=== PATIENT | female | born 1930 | race Caucasian/White ===

== ENCOUNTER 2016-05-18 07:11 | Inpatient (IN) | payer MEDICARE ==
[~2016-05-18] VITALS: Ht 160 cm; Wt 49.8 kg
[2016-05-18] VITALS (11 sets, daily range): BP systolic 117–156; BP diastolic 73–102; PULSE 87–118; RESP 13–18; O2SAT 95–98
[~2016-05-18 07:11] MED LIST: CALC600T12 PO; COU25 PO; DIGO125T73 PO; LEVO137T18 PO; MULT-64 PO; OMEG-38 PO; TOPR25T PO
--- NOTE | 2016-05-18 07:35 | ED.REPORT ---
HPI-Stroke / CVA May 18, 2016 ED Provider: Asmita Rincon MD Patient is a 85 year old female w/ a hx of COPD, A-fib, colon and uterine cancer who presents to the ED via EMS after waking up with stroke symptoms around midnight. She is slurring words but able to verbally communicate and articulate what happened. It is unknown when exactly the stroke occurred. She has never had a stroke before. Initial evaluation at 0719. Nursing Notes Stated Complaint: STROKE SYMPTOMS Chief Complaint: Neuro Symptoms/ Deficits Nursing Notes Reviewed: Yes Allergies: Coded Allergies: ciprofloxacin (Verified Allergy, Intermediate, rash, 05/18/16) Scheduled Alendronate (Alendronate) 35 Mg Tablet 70 MG PO WEEKLY (Reported) Duloxetine HCl (Duloxetine HCl) 40 Mg Capsule.dr 30 MG PO DAILY (Reported) Ipratropium [place] (Ipratropium [place] 0.03% Nasal) 30 Ml [place] 1 SPRAY NS TID (Reported) Levothyroxine (Levothyroxine) 88 Mcg Tablet 88 MCG PO DAILY (Reported) Metoprolol Tartrate (Metoprolol Tartrate) 37.5 Mg Tablet 37.5 MG PO HS (Reported ) Warfarin Sodium (Warfarin Sodium) 3 Mg Tablet 3 MG PO DAILYWD (Reported) General Time Seen by Provider: 07:19 Chief Complaint Other (stroke symptoms ) Hx Obtained From: Patient, EMS Arrived By: Ambulance Time last known well unknown Sudden in Onset?: Yes Context of Onset: During sleep Symptom Duration: Since onset Progression Since Onset: Unchanged Severity: Current: No pain currently Risk Factors NIH Stroke Scale Level of Consciousness: Alert and responsive (0) Ask Month & Age: Both questions right (0) Open/Close Eyes/Hand Career And Guidance Counselor: Performs both tasks (0) Horizontal EO Movements: Partial gaze palsy (1) Visual [place]: No visual loss (0) Facial Palsy: Partial paral, lower (2) Right Arm Motor Drift (10s): No drift 10 sec (0) Left Arm Motor Drift (10s): Drift, not touch bed (1) Right Leg Motor Drift (5s): No drift 5 sec (0) Left Leg Motor Drift (5s): No drift 5 sec (0) Limb Ataxia FNF/Heel-Mccrary: Ataxia in 1 limb (1) Sensation (Arms/Legs/Face): No sensory loss (0) Language Aphasia: No aphasia, normal (0) Dysarthria: Slurring intelligible (1) Extinction/Inattention: Inatt visual/tactile (1) NIHSS Score: 7 Time NIHSS Performed: 07:19 Date NIHSS Performed: May 18, 2016 Past Medical History Past Medical History colon and uterine cancer Reports: COPD Reports: Atrial fibrillation Past Surgical History Reports: Cholecystectomy, Hysterectomy Smoking History Former Smoker Ambulatory Status Independent Review of Systems Complete sys rev & neg: except as marked. Physical Exam Physical Exam Notes: NIH scale- tongue deviates as well Initial Vital Signs Vital Signs (First) Date Time Temp Pulse Resp B/P Pulse Ox O2 Delivery O2 Flow Rate FiO2 05/18/16 07:15 99 156/102 97 Room Air 05/18/16 07:25 36.7 18 Initial VS: Reviewed ENT: Mucous membranes moist, Conjunctiva normal Abdomen / GI: Soft, Non-tender, No guarding, No rebound, No distention Back: No CVA tenderness Lymphatic: No lymphadenopathy Extremities: Vascular intact, No tenderness Skin: Warm, Dry, No cyanosis General/Constitutional: Awake, Alert, No acute distress Respiratory / Chest: Breath sounds = bilat, No respiratory distress Cardiovascular: No murmurs Heart Rate / Rhythm: Positive: Irreg irregular rhythm Neurologic: Oriented X3 left facial droop and left arm weakness. tongue deviates Right. minimal difference noted in LE. Mild difficulty with finger/nose with left hand altert, cooperative. Appropriatley upset with symptoms and frustrated with difficulty speaking - mild aphasia and mild dysarthria Interpretation & Diagnostics Interpretation & Diagnostics: HEAD/NECK CTA W/ BRAIN PERFUSION IMPRESSION: 1. No acute intracranial process. 2. Mild to moderate atrophy and chronic microvascular ischemic changes. 3. No areas of hemodynamically significant stenosis, vascular occlusion or aneurysmal dilation within the anterior circulation. 4. No areas of hemodynamically significant stenosis, vascular occlusion or aneurysmal dilation within the posterior circulation. 5. Less than 50% stenosis at the origin of the right vertebral artery. Otherwise, no areas of hemodynamically significant stenosis, vascular occlusion or aneurysmal dilation within the neck vasculature. The above findings were discussed with Asmita Rincon on 05/18/16 at 8:09 AM. Dictated by: Rowan Zaragoza M.D. on 05/18/2016 at 8:10 Approved by: Rowan Zaragoza M.D. on 05/18/2016 at 8:40 Lab Results Interpretation Result Diagram: 05/18/16 0740 05/18/16 0740 Test 05/18/16 07:40 05/18/16 10:43 White Blood Count 6.8th/mm3 (3.8-10.1) Red Blood Count 5.13mil/mm3 (3.90-5.20) Hemoglobin 15.6g/dL (12.0-15.6) Hematocrit 46.3% (35.0-46.0) Mean Corpuscular Volume 90.3fL (81-100) Mean Corpuscular Hemoglobin 30.4pg (27.0-35.0) Mean Corpuscular Hemoglobin Concent 33.7% (32.0-37.0) Red Cell Distribution Width 14.8% (12.3-15.4) Platelet Count 187bil/L (150-400) Neutrophils (%) (Auto) 67.8% (40-74) Lymphocytes (%) (Auto) 25.9% (14-46) Monocytes (%) (Auto) 5.0% (4-12) Eosinophils (%) (Auto) 0.4% (0-5) Basophils (%) (Auto) 0.6% (0-3) Prothrombin Time 22.0sec (8.1-12.5) Prothromb Time International Ratio 2.03ratio Activated Partial Thromboplast Time 32.1sec (22.8-33.0) Sodium Level 139mEq/L (134-144) Potassium Level 4.3mEq/L (3.5-5.2) Chloride Level 96mEq/L (97-108) Carbon Dioxide Level 25mmol/L (18-29) Blood Urea Nitrogen 16mg/dL (8-27) Creatinine 0.71mg/dL (0.57-1.00) Estimat Glomerular Filtration Rate 113mL/min (>59) Glucose Level 116mg/dL (60-99) Calcium Level 9.7mg/dL (8.5-10.1) Total Bilirubin 1.0mg/dL (0.0-1.2) Aspartate Amino Transf (AST/SGOT) 28U/L (0-50) Alanine Aminotransferase (ALT/SGPT) 22U/L (0-32) Alkaline Phosphatase 52U/L (25-165) Troponin T < 0.010ug/L (0.0-0.011) Total Protein 7.4g/dL (6.4-8.4) Albumin 4.6g/dL (3.4-5.0) Urine Color Straw (YELLOW) Urine Appearance Hazy (CLEAR,HAZY) Urine pH 7.5 (5.0-8.0) Urine Specific [place] 1.010 (1.003-1.035) Urine Protein Negativemg/dL (NEG,TRACE) Urine Glucose (UA) Negativemg/dL (NEGATIVE) Urine Ketones Tracemg/dL (NEGATIVE) Urine Occult Blood Trace (NEGATIVE) Urine Nitrite Negative (NEGATIVE) Urine Bilirubin Negative (NEGATIVE) Urine Urobilinogen Normalmg/dL (NORMAL) Urine Leukocyte Esterase Trace (NEGATIVE) Re-Eval/Medical Decision Med Decision/Clinical Course 85-year-old relatively healthy woman with chronic atrial fibrillation anticoagulated with an INR of 2. Last night around midnight with signs and symptoms consistent with a right-sided stroke with left-sided facial droop and left arm weakness. She contacted her son this morning and was brought to the emergency department. Because she awoke with symptoms and they were before midnight she is well out of the range for TPA Consultation : Consulted With: Hospitalist Transport Specialist: Will see patient, Agrees with plan, Accepts admit Counseled Regarding: Diagnosis, Lab results, Need for admission Patient Discharge & Departure Impression: Primary Impression: Stroke Additional Impressions: Atrial fibrillation Anticoagulant prescribed Disposition: ADMITTED TO HOSPITAL Discharge Condition All VS Reviewed: Yes Condition: Stable Referrals: PAULINA FLOYD MD (PCP) [place] Attestation Portion of this note were transcribed by Daniel Edwards. I, Dr. Rincon, personally performed the history, physical exam, and medical decision-making: I reviewed and confirmed the accuracy for the information in the transcribed note. Signed by: abrahan Vargas, 05/18/16 0800 copies to: PAULINA FLOYD MD, Shawna L MD May 18, 2016 07:35 DANIEL EDWARDS May 18, 2016 07:57
[2016-05-18 07:47] LABS: BASOPHILS % (AUTO) 0.6 % (0-3); EOSINOPHILS % (AUTO) 0.4 % (0-5); Mean Corpuscular Hemoglobin 30.4 pg (27.0-35.0); Mean Corpuscular Volume 90.3 fL (81-100); NEUTROPHILS % (AUTO) 67.8 % (40-74); Platelet Count 187 bil/L (150-400)
[2016-05-18 07:49] LABS: INR 2.03 ratio
[2016-05-18 08:10] LABS: TROPONIN T < 0.010 ug/L (0.0-0.011)
--- NOTE | 2016-05-18 08:41 | DRSVH ---
PROCEDURE: CT ANGIO BRAIN NECK TPA INDICATIONS: left sided weakness TECHNIQUE: Pre-contrast 4.5 mm thick sections acquired from the foramen magnum to the vertex. After the adminis tration of intravenous contrast, 1 mm thick sections acquired from the aortic arch through the [place]. Post-contrast 4.5 mm thick sections then re-acquired from the foramen magnum to the vert ex. 3-dimensional wizvosb-flseemwtl-wyxizbklab (MIP) and/or volume rendering reformats were acquired of the central intracranial vasculature and neck separately. For radiation dose reduction, the foll owing was used: automated exposure control, adjustment of mA and/or kV according to patient size. COMPARISON: None. FINDINGS: Image quality: Excellent. BRAIN: The ventricular system and cortical sulci demonstrate atrophy, consistent for the patient's stated ag e. There are areas of hypodensity within the periventricular and subcortical white matter. There is no acute intra-or extra axial fluid collection. No acute hemorrhage, mass lesion or midline shift. Br ainstem is unremarkable. Globes are symmetrical. Sinuses are aerated. Osseous structures are intact. HEAD CT ANGIOGRAPHY: The posterior circulation demonstrates a left vertebral artery dominance. Basilar artery and posterio r cerebral arteries demonstrate no areas of hemodynamically significant stenosis, vascular occlusion or aneurysmal dilation. Posterior communicating arteries are within normal limits. The anterior circulation, including the anterior and middle cerebral arteries, as well as internal ca rotid arteries demonstrates no areas of hemodynamically significant stenosis, vascular occlusion or a neurysmal dilation. NECK CT ANGIOGRAPHY: The origins of the left and right common, internal and external carotid arteries demonstrate no areas of hemodynamically significant stenosis, vascular occlusion or aneurysmal dilation. Origin of the le ft vertebral artery demonstrates no areas of hemodynamically significant stenosis, vascular occlusion or aneurysmal dilation. There is a small focus of calcification at the origin of the right vertebral artery causing less than 50% stenosis. Aortic arch demonstrates conventional anatomy. Limited, visua lized portions subclavian vasculature are unremarkable. There is a partially visualized minimal right pleural effusion. Calcified granulomas noted in the lef t upper lobe. IMPRESSION: 1. No acute intracranial process. 2. Mild to moderate atrophy and chronic microvascular ischemic changes. 3. No areas of hemodynamically significant stenosis, vascular occlusion or aneurysmal dilation within the anterior circulation. 4. No areas of hemodynamically significant stenosis, vascular occlusion or aneurysmal dilation within the posterior circulation. 5. Less than 50% stenosis at the origin of the right vertebral artery. Otherwise, no areas of hemodyn amically significant stenosis, vascular occlusion or aneurysmal dilation within the neck vasculature. The above findings were discussed with Asmita Rincon on 05/18/16 at 8:09 AM. Dictated by: Rowan Zaragoza M.D. on 05/18/2016 at 8:10 Approved by: Rowan Zaragoza M.D. on 05/18/2016 at 8:40
[2016-05-18] MEDS ORDERED: WARF3TAB7 PO (10:43)
[2016-05-18] MEDS ORDERED: LEVO88TA4 PO (10:44)
[2016-05-18] MEDS ORDERED: IPRA30SP8 NS (10:44)
[2016-05-18] MEDS ORDERED: ALEN35TA31 PO (10:46)
[2016-05-18] MEDS ORDERED: METO37.5 PO (10:47)
[2016-05-18] MEDS ORDERED: DULO40CA2 PO (10:48)
[2016-05-18 10:52] LABS: APPEARANCE,URINE HAZY (CLEAR,HAZY); COLOR,URINE STRAW (YELLOW); OCCULT BLOOD,URINE TRACE (NEGATIVE); PH,URINE 7.5 (5.0-8.0); UROBILINOGEN,URINE NORMAL (NORMAL)
[2016-05-18] MEDS ORDERED: Ondansetron 2 mg/mL 2 mL Inj IVPUSH PRN (11:20)
[2016-05-18] MEDS: 0.9% Sodium Chloride 1,000 ML IV SCH ×2 (12:17→20:29)
--- NOTE | 2016-05-18 12:30 | NUR ---
Arrived to [facility] : Patient arrived to [facility] from the ER at 1230. Patient is alert and oriented and having difficulty expressing herself verbally. Patient can barely move the fingers on her left hand and is unable to lift her left leg. Patient was oriented to her room care givers and call light. Patients Admit questions were answered in the ER .
[2016-05-18] MEDS ORDERED: Ondansetron 2 mg/mL 2 mL Inj IV PRN (13:10)
[2016-05-18] MEDS ORDERED: Alum-Mag Hydrox-Simeth 30 mL Suspension PO PRN (13:10)
[2016-05-18] MEDS ORDERED: Polyethylene Glycol (PEG) 17 Gm Powder PO PRN (13:10)
[2016-05-18] MEDS ORDERED: Labetalol 5 mg/mL 4 mL Inj IVPUSH PRN (13:30)
[2016-05-18] MEDS: Ipratropium 0.03% 30 mL Nasal Spray Bottle NASAL SCH ×2 (14:30→21:51)
--- NOTE | 2016-05-18 15:05 | NUR ---
Evaluation completed. Please go to "Notes" then click on "Assessments and Notes" (bottom left corner of screen). Then select appropriate discipline tab on top of screen.
[2016-05-18 15:49] LABS: Magnesium 2.1 mg/dL (1.6-2.6); TROPONIN T < 0.010 ug/L (0.0-0.011)
--- NOTE | 2016-05-18 16:49 | PCM.HPMED ---
Subjective Date of Service May 18, 2016 Primary Provider: Admitting Physician: Charli Kearns MD Primary Care Physician: Enio Downs MD Attending Physician: Charli Kearns MD Admit Status: From the Emergency Department, Full Admit Chief Complaint: Left-sided facial droop and weakness. . History of Present Illness: Geetha Emanuel is an 85-year-old female with a past medical history significant for paroxysmal atrial fibrillation, colon cancer status post colon resection 2 and chemotherapy and uterine cancer status post total abdominal hysterectomy who presented to the [facility] emergency Department via EMS after waking up with stroke symptoms around midnight. She reports that when she awoke she could not walk. She then called her son and was having difficulty with speaking and her words were slurred. She also noticed that she was drooling out of her mouth. She had accompanying lightheadedness and left-sided facial droop. It is unknown when exactly the stroke occurred. She reports that she wakes up very early but this was earlier than usual. She is unsure of why she awoke. She has never had a stroke before. Initial evaluation in the ED was at 0719. She denies headache, vision changes, facial numbness or tingling, chest pain, shortness of breath, palpitations, abdominal pain, nausea, vomiting , dysuria, bowel or bladder incontinence. She has no other complaints at this time. Vital signs in the ER: Temperature 36.7. Pulse 107. Respiratory rate 18. Blood pressure 156/102. Pulse ox 96% on room air. She was given 1 L NS. Her PCP is Dr. Downs in [place]. . Review of Systems: A comprehensive review of systems was conducted with the patient and found to be negative except as above in the History of Present Illness. . Allergies Coded Allergies: ciprofloxacin (Verified Allergy, Intermediate, rash, 05/18/16) Home Medications Alendronate 70 mg weekly. Metoprolol tartrate 37.5 mg daily at bedtime. Levothyroxine 88 g daily. Warfarin 3 mg daily. . PMH 1. Paroxysmal atrial fibrillation on warfarin. 2. Peripheral neuropathy. 3. Hypothyroidism. 4. Osteoporosis. 5. Colon cancer status post colon resection 2 and chemotherapy. 6. Uterine cancer status post total abdominal hysterectomy. . Surgical History 1. Cholecystectomy. 2. Total abdominal hysterectomy (1960s). 3. Colon resection 2 (1998 and 2003). Family History Her mother and father of old age. She had 2 brothers and 2 sisters. Her brother had CHF. She has one sister who is alive but is unaware of her medical history. . Social History Hx Alcohol Use: Yes (1/NITE) Hx Substance Use: No Hx Tobacco Use: Yes Smoking Status: Former Smoker (1/2 PPD 5-10 years) Additional Information The patient was for 40+ years and is now . She has 2 sons and 1 daughter. Her daughter had an NH in her 50s presumably due to drug use. 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 She was born in [facility] and has lived in [place] for 20 years she currently resides in [place]. She is independent at baseline. . Exam Vital Signs Vital Sign - Last Date Time Temp Pulse Resp B/P Pulse Ox O2 Delivery O2 Flow Rate FiO2 05/18/16 11:46 37.7 105 17 143/85 95 Room Air Exam General: Elderly female in no acute distress, thin, appropriately interactive HEENT: Normocephalic, atraumatic. Head is rotated right. External ears without defect. Pupils equal, round, and reactive to light. Lateral gaze to right. Anicteric sclerae, moist conjunctivae, and no lid lag. Oropharynx free of erythema and cobble stoning with moist mucosa. Tongue deviates to left. Neck: Supple with decreased range of motion slightly to left. No jugular venous distension. No bruits. No lymphadenopathy or thyromegaly. Cardiovascular: Irregularly irregular with no murmurs, rubs, or gallops appreciated Pulmonary: Clear to auscultation bilaterally with no crackles, wheezes, or rhonchi. Normal respiratory effort with no use of accessory muscles. Abdomen: Soft, nontender, nondistended, bowel sounds present. No hepatosplenomegaly or masses appreciated. Extremities: No clubbing, cyanosis, or edema. Skin: Normal temperature, turgor, and texture; no rash, ulcers, or subcutaneous nodules appreciated. Neurological: Left-sided facial droop, left tongue deviation, left upper extremity weakness, slurred speech, mild drooling. Psychiatric: Normal mood and affect. Alert and oriented to person, place, and time. . Lab and Diagnostics Labs Item Value Date Time Calcium Level 9.7 mg/dL 05/18/16 0740 Total Bilirubin 1.0 mg/dL 05/18/16 0740 Aspartate Amino Transf (AST/SGOT) 28 U/L 05/18/16 0740 Alanine Aminotransferase (ALT/SGPT) 22 U/L 05/18/16 0740 Alkaline Phosphatase 52 U/L 05/18/16 0740 Troponin T < 0.010 ug/L 05/18/16 0740 Total Protein 7.4 g/dL 05/18/16 0740 Albumin 4.6 g/dL 05/18/16 0740 Result Diagram: 05/18/16 0740 05/18/16 07 Microbiology Urine culture pending. . X-Rays, CTs and MRIs CT ANGIO BRAIN NECK TPA IMPRESSION: 1. No acute intracranial process. 2. Mild to moderate atrophy and chronic microvascular ischemic changes. 3. No areas of hemodynamically significant stenosis, vascular occlusion or aneurysmal dilation within the anterior circulation. 4. No areas of hemodynamically significant stenosis, vascular occlusion or aneurysmal dilation within the posterior circulation. 5. Less than 50% stenosis at the origin of the right vertebral artery. Otherwise , no areas of hemodynamically significant stenosis, vascular occlusion or aneurysmal dilation within the neck vasculature. The above findings were discussed with Asmita Rincon on 05/18/16 at 8:09 AM. Dictated by: Rowan Zaragoza M.D. on 05/18/2016 at 8:10 Approved by: Rowan Zaragoza M.D. on 05/18/2016 at 8:40 . 12-lead ECG EKG: Atrial fibrillation, heart rate 78, normal axis. . Assessment & Plan Geetha Emanuel is an 85-year-old female with a past medical history significant for paroxysmal atrial fibrillation, colon cancer status post colon resection 2 and chemotherapy and uterine cancer status post total abdominal hysterectomy who presented to the [facility] emergency Department via EMS after waking up with stroke symptoms eft-sided facial droop and upper extremity weakness that are persistent. 1. Acute CVA - Patient presented with symptoms of CVA including left-sided facial droop and upper extremity weakness that are persistent. - This is surgical sales representative of probable CVA versus RIND. - CTA of brain and neck showed no hemorrhage or acute intracranial abnormalities other than mild to moderate atrophy, as above. - NIH score of 7. Patient is not a TPA candidate as last known normal was last night prior to going to bed and she is anticoagulated on warfarin with INR of 2.03. - Neuro checks, fall risk per cautions, and elevate head of the bed 30 or more , per stroke protocol. - Ordered echocardiogram with bubble study, pending. - Ordered bilateral carotid Doppler Ultrasound, pending. - Ordered PT/OT/ST evaluations, pending. - Patient is nothing by mouth until swallow evaluation with speech therapy. - May use supplemental oxygen as needed. - Allow for permissive hypertension. - Continue to monitor closely on telemetry. - Ordered dietitian consultation. - Ordered nursing to provide stroke education. - Ordered fasting lipid panel for tomorrow with morning labs - Consulted neurology, Dr. Thomas, who recommends echocardiogram, lipid panel and initiation of statin therapy. Chronic problems: 2. Paroxysmal atrial fibrillation, on anticoagulation with warfarin, chronic. Stable. - Patient's INR is therapeutic at 2.03. - Patient is rate controlled on metoprolol 25 mg twice a day. Held metoprolol for now for permissive hypertension. May reconsider starting if the patient has RVR. - Continue warfarin with dosing per pharmacist. 3. Hypothyroidism, chronic. Presumed stable. - Ordered TSH, pending. - Continue home dose of levothyroxine 88 g daily. 4. Peripheral neuropathy, chronic. Stable. - No longer medically treated. PRN antiemetics: Zofran and Maalox. PRN bowel regimen: Senna and MiraLAX. PRN analgesics: Tylenol. PRN antihypertensive: Labetalol IV. Patient is admitted under inpatient status with expected length of stay greater than 2 midnights due to severity of presenting symptoms, risk of adverse event, and complexity of treatment plan. . VTE Prophylaxis: Sub-Q Heparin (Unfractionated) Resuscitation Status: CPR: Attempt Resuscitation Attending Statement The patient was seen and examined together with Dr. Cowan on 05/18/2016 and I agree with the history, exam and plan as outlined in the note above. Mindi Cowan DO May 18, 2016 13:37 Charli Kearns MD May 19, 2016 13:18
--- NOTE | 2016-05-18 20:12 | PCM.PHAPRO ---
Progress Left-sided facial droop and weakness. . WARFARIN DOSING PER PHARMACY Indication: afib Home dose: 3 mg PO daily INR Goal: 2-3 DI: N/A Additional Anticoag: N/A 2.03 P: Will give one dose of warfarin 3 mg PO tonight. Pharmacy will continue to monitor INR/CBC/signs and symptoms of bleeding Merna Garnica PharmD May 18, 2016 20:12
--- NOTE | 2016-05-18 20:17 | CONS ---
[address] [address] CONSULTATION REPORT PATIENT: CARLOS SHIPMAN : 1930 MR#: [id number] ADMIT: 05/18/2016 JOB ID: [id number] DATE OF SERVICE: 05/18/2016 NEUROLOGY CONSULTATION: REQUESTING PROVIDER: Mindi Cowan DO (RES) and Brenda Kearns MD CHIEF COMPLAINT: Sudden onset of left-sided weakness. HISTORY OF PRESENTING ILLNESS: The patient is a pleasant 85-year-old, right-handed woman with multiple medical problems including chronic obstructive pulmonary disease, atrial fibrillation therapeutic on warfarin with an INR of two, and a remote history of colon and uterine cancer, who reportedly woke up with the sudden onset of left upper and lower extremity weakness as well as a left facial droop and dysarthric speech. The last seen normal time was outside of the tPA window. Initial evaluation was at 7:19 a.m. She reports no history of stroke. FAMILY HISTORY: No family history of any neurologic disorders including stroke. PAST MEDICAL HISTORY: As above noted. Chronic obstructive pulmonary disease, atrial fibrillation well controlled on warfarin, a remote history of colon and uterine cancer. 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 She also has a 20 pack-year history of smoking. However, reports that she does not smoke now. She has a history of chronic obstructive pulmonary disease, paroxysmal supraventricular tachycardia and sleep apnea. PAST SURGICAL HISTORY: Status post cholecystectomy and hysterectomy. PRIMARY CARE PROVIDER: Dr. Downs SOCIAL HISTORY: She lives with her son. No tobacco, alcohol, or drugs. See above. REVIEW OF SYSTEMS: A complete review of systems was performed and was remarkable for the above noted. NIH STROKE SCALE: Initial NIH stroke scale was 7. Partial gaze palsy, facial palsy, left arm drift, limb ataxia, dysarthric speech, and extinction, for a total score of seven. Score appears the same today, with an NIH stroke scale of seven. ALLERGIES: CIPROFLOXACIN. HOME MEDICATIONS: Include warfarin 3 mg tablets daily, metoprolol, levothyroxine, ipratropium bromide, duloxetine, and alendronate. IMAGING STUDIES: She had a CTA of the head and neck demonstrating no acute intracranial process, mild to moderate atrophy, and chronic microvascular ischemic changes. No areas of hemodynamically significant stenosis, vascular occlusion, or aneurysmal dilation within the anterior circulation. No areas of hemodynamically significant stenosis, vascular occlusion, or aneurysmal dilation within the posterior circulation. Less than 50% stenosis at the origin of the right vertebral artery. Otherwise, no areas of hemodynamically significant stenosis, vascular occlusion, or aneurysmal dilation within the neck vasculature. LABORATORY STUDIES: WBC of 6.8, hemoglobin 15.6, hematocrit 46.3, and platelets of 187. Chemistry: Sodium 139, potassium 3 and was 4.3, chloride was 96, bicarb 25, BUN was 16, creatinine 0.71, and glucose of 116. LFTs were within normal limits. TSH was 3.510. Coags: PT was 22, INR 2.03, and PTT of 32.1. Urinalysis: Hazy in appearance, straw colored, trace ketones, trace occult blood, trace leukocyte esterase, a few urine bacteria. PHYSICAL EXAMINATION: Temperature 37.0, pulse of 118, respiratory rate of 15, blood pressure 117/76, pulse oximetry 95% on room air. General: She is a well-developed, well-nourished woman in no acute distress. Head: Normocephalic, atraumatic. Neck: Supple. No carotid bruits were auscultated. Negative Kernig. Negative Brudzinski. Chest: Clear to auscultation. Heart: The heart rate was at times irregularly irregular. No murmurs, rubs, or gallops were noted. Abdomen: Soft, nontender, nondistended. Bowel sounds positive. Extremities: No cyanosis, clubbing, or edema. NEUROLOGIC EXAMINATION: Mental status: She is awake, alert, and oriented x3. Speech is dysarthric, however there is no aphasia. There is a prominent left-sided facial neglect. Cranial nerves: Pupils equal, round, and reactive to light. Extraocular movements were smooth and conjugate, with no evidence of nystagmus. Face appeared symmetrical. Facial sensation was intact to light touch and temperature. There was an upper motor neuron type cranial nerve 7 palsy with flattening of the left nasolabial fold, so the face did appear asymmetrical. Auditory sensation was intact to finger rub. Palatal elevation was symmetrical. There was a mild degree of tongue deviation to the left. Sternocleidomastoids and trapezii were 5/5 bilaterally. There was prominent left-sided neglect. Motor: Left upper extremity 4, left lower extremity 4+. Coordination: [id number] was intact on the right. There was a mild degree of dysmetria on the left, proportionate to the degree of weakness. Sensation: Intact to light touch and temperature throughout. Reflexes: Deep tendon reflexes were 1+ in the upper extremities, 2+ at the patella, and 1+ at the Achilles bilaterally. Plantars were equivocal bilaterally. Gait: Deferred. Modified Langlade Score: 4 IMPRESSION: Cerebrovascular accident, acute in nature. Given that her INR was therapeutic, my suspicion is that this may be a vascular event secondary to other underlying potential stroke risk factors including hyperlipidemia. In light of that I do recommend that she be placed on the stroke protocol and a statin be started. I also recommend a fasting lipid profile for tomorrow morning. It is unclear if she does have baseline hypertension as readings in the hospital have varied widely. I would continue to optimize control of stroke risk factors including potential hypertension. I do recommend physical therapy and occupational therapy, as well as speech therapy. I recommend optimization of control of stroke risk factors. Continue stroke protocol. I do also recommend a repeat computed tomography study of her head with and without contrast tomorrow, as often as a stroke that was initially not visualized acutely may appear within the next 24-48 hours. She does have a pacemaker and therefore a magnetic resonance imaging study of her brain cannot be performed. My understanding is that she is on metoprolol for rate control of her atrial fibrillation; however, it is certainly possible that she has underlying hypertension which may also be controlled by this. Thank you, again, Dr. Cowan and Dr. Kearns, for allowing me to participate in the care of your patient. Please feel free to contact me with any questions or concerns. OPAL
[2016-05-19] VITALS (8 sets, daily range): BP systolic 125–159; BP diastolic 73–88; PULSE 70–104; RESP 16–18; O2SAT 96–98
[2016-05-19] MEDS ORDERED: Acetaminophen IV 1,000 MG in IV Premix 1 EACH IV ONE (02:00)
--- NOTE | 2016-05-19 05:02 | NUR ---
Neuro Checks Q4 neuro checks. patient shows left sided deficit with a left sided facial droop, severe strength and mobility decrease in left arm, mild strength and mobility decrease in left leg, and tingling and numbness throughout entire left side. pupils equal bilaterally. mumbled speech. patient states that her left arm "does what I want it to sometimes and sometimes it doesn't" when asked if she is able to extend it out in front of her. continuing Q4h checks.
[2016-05-19] MEDS ORDERED: DULoxetine 30 mg DR Capsule PO SCH (08:30)
[2016-05-19 08:48] LABS: BASOPHILS % (AUTO) 0.6 % (0-3); EOSINOPHILS % (AUTO) 1.1 % (0-5); MONOCYTES % (AUTO) 8.7 % (4-12); Mean Corpuscular Hemoglobin 30.4 pg (27.0-35.0); Mean Corpuscular Volume 88.7 fL (81-100); NEUTROPHILS % (AUTO) 68.5 % (40-74); Platelet Count 174 bil/L (150-400)
[2016-05-19 09:05] LABS: INR 2.24 ratio
--- NOTE | 2016-05-19 09:26 | PCM.PHAPRO ---
Progress Left-sided facial droop and weakness. . Date May 19-Apr INR 2.03 2.24 INR change 0.21 Warf Dose 3 MG 3 MG Benito Cadet May 19, 2016 09:26
[2016-05-19] MEDS: Ipratropium 0.03% 30 mL Nasal Spray Bottle NASAL SCH ×3 (09:48→20:11)
--- NOTE | 2016-05-19 11:14 | NUR ---
Evaluation completed. Please go to "Notes" then click on "Assessments and Notes" (bottom left corner of screen). Then select appropriate discipline tab on top of screen.
--- NOTE | 2016-05-19 12:59 | PCM.PNMED ---
Subjective Date of Service May 19, 2016 Subjective Patient is an 85-year-old female with a past medical history significant for paroxysmal atrial fibrillation, on warfarin, colon cancer status post colon resection 2 and chemotherapy and uterine cancer status post total abdominal hysterectomy who presented to the [facility] ED via EMS after waking up with stroke symptoms around midnight. She was admitted for CVA management and treatment. Hospital day #2. No acute overnight events. Patient states she has somewhat improved overnight. She still has left-sided facial droop but her left arm mobility and strength have much improved. Her speech is still a little mumbled. She denies headache, vision changes, new weakness, sensation loss. Exam Vital Signs Vital Sign - Last Date Time Temp Pulse Resp B/P Pulse Ox O2 Delivery O2 Flow Rate FiO2 05/19/16 10:01 36.6 99 16 145/83 96 Room Air Intake and Output 05/18/16 05/18/16 05/19/16 Cumulative From/Thru 15:00 23:00 07:00 05/18/16 07:25 - 05/19/16 06:54 Intake Total 634 ml 100 ml 734 ml Output Total 200 ml 200 ml Balance 634 ml -100 ml 534 ml Intake Oral 100 ml 100 ml IV Total 634 ml 634 ml Output Urine Total 200 ml 200 ml # Bowel Movements 0 0 Exam General: Elderly female in no acute distress, thin, appropriately interactive, sitting comfortably on the chair HEENT: Normocephalic, atraumatic. Head is rotated right. External ears without defect. Pupils equal, round, and reactive to light. Lateral gaze to right. Anicteric sclerae, moist conjunctivae, and no lid lag. Oropharynx free of erythema and cobble stoning with moist mucosa. Tongue deviates to left. Neck: Supple with decreased range of motion slightly to left. No jugular venous distension. No bruits. No lymphadenopathy or thyromegaly. Cardiovascular: Irregularly irregular with no murmurs, rubs, or gallops appreciated Pulmonary: Clear to auscultation bilaterally with no crackles, wheezes, or rhonchi. Normal respiratory effort with no use of accessory muscles. Abdomen: Soft, nontender, nondistended, bowel sounds present. No hepatosplenomegaly or masses appreciated. Extremities: No clubbing, cyanosis, or edema. Skin: Normal temperature, turgor, and texture; no rash, ulcers, or subcutaneous nodules appreciated. Neurological: Left-sided facial droop, left tongue deviation (improved), left upper extremity weakness (improved), slurred speech, mild drooling. Psychiatric: Normal mood and affect. Alert and oriented to person, place, and time. Lab and Diagnostics Result Diagram: 05/19/16 0836 05/19/16 0836 Microbiology Urine culture pending. . X-Rays, CTs and MRIs CT ANGIO BRAIN NECK TPA IMPRESSION: 1. No acute intracranial process. 2. Mild to moderate atrophy and chronic microvascular ischemic changes. 3. No areas of hemodynamically significant stenosis, vascular occlusion or aneurysmal dilation within the anterior circulation. 4. No areas of hemodynamically significant stenosis, vascular occlusion or aneurysmal dilation within the posterior circulation. 5. Less than 50% stenosis at the origin of the right vertebral artery. Otherwise , no areas of hemodynamically significant stenosis, vascular occlusion or aneurysmal dilation within the neck vasculature. The above findings were discussed with Asmita Rincon on 05/18/16 at 8:09 AM. Dictated by: Rowan Zaragoza M.D. on 05/18/2016 at 8:10 Approved by: Rowan Zaragoza M.D. on 05/18/2016 at 8:40 . 12-lead ECG EKG: Atrial fibrillation, heart rate 78, normal axis. . Assessment & Plan Geetha Emanuel is an 85-year-old female with a past medical history significant for paroxysmal atrial fibrillation, colon cancer status post colon resection 2 and chemotherapy and uterine cancer status post total abdominal hysterectomy who presented to the [facility] emergency Department via EMS after waking up with stroke symptoms eft-sided facial droop and upper extremity weakness that are persistent. 1. Left-sided facial droop and upper extremity weakness, present on admission. Active. - Patient presented with symptoms of CVA including left-sided facial droop and upper extremity weakness that are persistent. - This is ambulatory services representative of probable CVA versus RIND. - CTA of brain and neck showed no hemorrhage or acute intracranial abnormalities other than mild to moderate atrophy, as above. - NIH score of 7. Patient is not a TPA candidate as last known normal was last night prior to going to bed and she is anticoagulated on warfarin with INR of 2.24. - Neuro checks, fall risk per cautions, and elevate head of the bed 30 or more , per stroke protocol. - Ordered echocardiogram with bubble study, pending. - Ordered bilateral carotid Doppler Ultrasound, (awaiting for report). - Ordered PT/OT/ST evaluations, pending. - Patient is nothing by mouth until swallow evaluation with speech therapy. - May use supplemental oxygen as needed. - Allow for permissive hypertension. - Continue to monitor closely on telemetry. - Ordered dietitian consultation. - Ordered nursing to provide stroke education. - Consulted neurology, Dr. Thomas, who recommends echocardiogram (awaiting), lipid panel (came back normal) and initiation of statin therapy, and repeat CT with and without contrast (awaiting). Chronic problems: 2. Paroxysmal atrial fibrillation, on anticoagulation with warfarin, chronic. Stable. - Patient's INR is therapeutic at 2.24. - Patient is rate controlled on metoprolol 25 mg twice a day. Held metoprolol for now for permissive hypertension. May reconsider starting if the patient has RVR. - Continue warfarin with dosing per pharmacist. 3. Hypothyroidism, chronic. Presumed stable. - Ordered TSH, pending. - Continue home dose of levothyroxine 88 g daily. 4. Peripheral neuropathy, chronic. Stable. - No longer medically treated. PRN antiemetics: Zofran and Maalox. PRN bowel regimen: Senna and MiraLAX. PRN analgesics: Tylenol. PRN antihypertensive: Labetalol IV. Patient is admitted under inpatient status with expected length of stay greater than 2 midnights due to severity of presenting symptoms, risk of adverse event, and complexity of treatment plan. . VTE Prophylaxis: Sub-Q Heparin (Unfractionated) Resuscitation Status: CPR: Attempt Resuscitation Attending Statement The patient was seen and examined together with Dr. Ray on 05/19/2016 and I agree with the history, exam and plan as outlined in the note above. Colette Ray DO May 19, 2016 12:59 Charli Kearns MD May 20, 2016 10:06
--- NOTE | 2016-05-19 13:40 | DRSVH ---
PROCEDURE: CT BRAIN WITH AND WITHOUT CONTRAST ([id number]) INDICATIONS: Stroke TECHNIQUE: 4.5 mm thick angled axial sections acquired from the foramen magnum to the vertex both before and aft er the administration of intravenous contrast, with coronal reformats. COMPARISON: [facility], CT, CT ANGIO BRAIN NECK TPA, 05/18/2016, 7:51. [facility], [place], CT, CT HEAD WO CONTRAST, 04/24/2016, 4:46 AM. FINDINGS: Image quality: Excellent. CSF spaces: Basal cisterns are patent. No extra-axial fluid collections. Ventricles are symmetric in size and shape. Brain: No midline shift. No intracranial bleeds or masses. No abnormal intracranial enhancement. There is an overlie of mild cerebral volume loss for age. There is periventricular white matter environmental health nurse juhi small vessel ischemic change. There also is a newly identified subacute stroke present since the comparison CT of the brain 04/24/16. This also is appreciably better visualized than on the comparis on head CT 05/18/16 performed at 07:51 in the morning this is located at the upper margin of the insu lar cortex on the right, tracking into the anterior half of the powell radiata on the right near the frontal horn of the right lateral ventricle, measuring approximately 2 cm in maximal AP dimension. T here is intracranial internal carotid artery atherosclerosis. Skull and face: Calvarium and visualized facial bones appear intact, without suspicious lesions. Sinuses: Visualized sinuses and mastoids are clear. IMPRESSION: Definite new finding of subacute ischemic injury involving the superior right insular cor magali region tracking cephalad into the anterior half of the right powell radiata, measuring up to 2 cm in maximal AP dimension without associated mass effect or hemorrhage. This is clearly visualized by the current study and likely was present to a very faint degree at 7 in the morning yesterday, and w as not present during CT scanning 04/24/16. As noted, no mass effect or hemorrhage is associated. By its appearance and evolution underlying malignancy is not suspected. Dictated by: Gabriel Long M.D. on 05/19/2016 at 13:33 Approved by: Gabriel Long M.D. on 05/19/2016 at 13:40
--- NOTE | 2016-05-19 15:51 | NUR ---
Social Work-initial assessment: Data:See initial assessment. Pt is a 85 y/o female who was admitted on 05/18/16 for stroke per H&P. Pt's insurance is [facility] and PCP is Enio Downs MD. EMR Reviewed. Pt's readmission score is 2. SW met with pt at bedside to discuss discharge planning, SW role explained. Pt is alert and oriented x3. Pt resides at home with her son Александр where she remains independent with ADLs. Pt drives and uses a cane at baseline. Pt has no HH or SNF history. 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 SW discussed DPOA/advanced directive, pt states she has completed this, SW encouraged a copy to be brought into the hospital. PT and ST both saw pt today and are recommend Inpt rehab vs SNF. SW discussed with differences to both. SW also explained pt would have to have 24/7 care at home to be able to go to inpt rehab. Pt states her son will be able to do this, SW to confirm with son. SNF choice list proivded. Pt would like a referral to [facility] and also [facility]. SW faxed PASRR and facesheet to [facility] and provided access in [place]. SW attempted to reach son Александр, left message on his phone. SW to wait until 24/7 care is confirmed prior to making inpt rehab referral. Paperwork and PASRR in the chart. SW will continue to follow. Assessment:Inpt rehab vs SNF. Plan:[facility] has been faxed. SW to wait to hear back from son to confirm 24/7 care post inpt rehab prior to making referral to [facility] inpt rehab. authorization will need to be obtained. Paperwork and PASRR in the chart. SW will continue to follow. AVRIL Banuelos Addendum: 05/19/16 at 1557 by DEYANIRA MEJIAS SS Amended: Links added.
--- NOTE | 2016-05-19 15:57 | NUR ---
SNF choice list provided. AVRIL Banuelos
[2016-05-19] MEDS: 0.9% Sodium Chloride 1,000 ML IV SCH ×2 (16:21→17:18)
--- NOTE | 2016-05-19 17:19 | CONS ---
[address] [address] CONSULTATION REPORT PATIENT: CARLOS SHIPMAN : 1930 MR#: [id number] ADMIT: 05/18/2016 JOB ID: [id number] DATE OF SERVICE: 05/19/2016 NEUROLOGY PROGRESS NOTE: SUBJECTIVE: The patient reports improvement in her right upper extremity weakness overnight. I reviewed her repeat CT of the head with and without contrast which demonstrated a definite new finding of a subacute ischemic injury involving the superior right insular cortex region, tracking cephalad into the anterior half of the right powell radiata, measuring up to 2 mm on maximal AP dimension, but without associated mass effect or hemorrhage. This is clearly visualized by the current study. No hemorrhage was noted. PHYSICAL EXAMINATION: Today vital signs: Temperature 36.6, pulse of 104, respiratory rate of 16, blood pressure 124/73, pulse oximetry 97% on room air. General: She is a well-developed, well-nourished woman in no acute distress. Head: Normocephalic, atraumatic. Neck: Supple. No carotid bruits were auscultated. Negative Kernig. Negative Brudzinski. Chest: Clear to auscultation. Heart: At times irregularly irregular. No murmurs, rubs, or gallops were noted. Abdomen: Soft, nondistended, nontender. Bowel sounds positive. Extremities: No cyanosis, clubbing, or edema. NEUROLOGIC EXAMINATION: Mental status: She is awake, alert, and oriented x3. Speech is dysarthric, however there is no aphasia. Left-sided neglect appears much improved today, however still present. Cranial nerves: Pupils equal, round, and reactive to light. Extraocular movements were smooth and conjugate, with no evidence of nystagmus. Face appeared symmetrical. Facial sensation asymmetrical. There was an upper motor neuron type cranial nerve 7 palsy with flattening of the left nasolabial fold. Facial sensation was diminished to light touch and temperature on the left side. Auditory sensation was intact to finger rub. Palatal elevation was symmetrical. There is a mild degree of tongue deviation to the left. Sternocleidomastoids and trapezii were 5/5 bilaterally. As noted above, left-sided neglect was still present; however, appeared not much output improved. Motor: Left upper extremity 4+, left lower extremity 5-. Coordination: [id number]-fl-remb was intact on the right. There was a mild degree of dysmetria on the left, proportionate to the degree of weakness. Sensation: Diminished today to light touch and temperature over the left upper and left lower extremities. Reflexes: Deep tendon reflexes were 1+ in the upper extremities, 2+ at the patella, 1+ at the Achilles bilaterally. Plantars were equivocal bilaterally. Gait: Deferred. IMPRESSION: Cerebrovascular accident left insula/powell radiata. RECOMMENDATIONS: Continue stroke protocol. Recommend obtaining a 2D echocardiogram. Continue to optimize control of stroke risk factors. Cholesterol levels today: Total cholesterol 172, LDL 87.8, VLDL 16.2, HDL was 68. TSH 3.510. Her blood pressure has been intermittently elevated. She does not smoke. I do recommend obtaining the 2D echocardiogram to exclude a cardiac etiology. However, given the location of the stroke, my suspicion is that her intermittent elevated blood pressures may have contributed to the stroke if no cardioembolic etiology is identified. OPAL
--- NOTE | 2016-05-19 17:44 | NUR ---
Intake/activity Pt able to sit up in chair and consume meals following set up with minimal assist. Pt is trying to use L hand as much as possible, using R hand to brace when needed, Pt was up with PT, able to ambulate for very short distance in hallway with 1 per assist, gait belt, and FWW. Pt has been getting up to BCS with 1 per assist, able to make needs known. Call light within reach, will continue to monitor.
[2016-05-20] VITALS (10 sets, daily range): BP systolic 152–167; BP diastolic 70–94; PULSE 82–106; RESP 16–18; O2SAT 91–98
[2016-05-20] MEDS: 0.9% Sodium Chloride 1,000 ML IV SCH (03:05)
[2016-05-20 06:37] LABS: BASOPHILS % (AUTO) 0.8 % (0-3); EOSINOPHILS % (AUTO) 2.3 % (0-5); MONOCYTES % (AUTO) 9.7 % (4-12); Mean Corpuscular Hemoglobin 30.5 pg (27.0-35.0); Mean Corpuscular Volume 92.1 fL (81-100); NEUTROPHILS % (AUTO) 64.9 % (40-74); Platelet Count 143 bil/L (150-400)
[2016-05-20 06:54] LABS: INR 2.36 ratio
--- NOTE | 2016-05-20 07:12 | PCM.PHAPRO ---
Progress Left-sided facial droop and weakness. . May 19-May 20-Apr 2.03 2.24 2.36 0.21 0.12 3 MG 3 MG 3 MG Benito Cadet May 20, 2016 07:12
[2016-05-20] MEDS: Ipratropium 0.03% 30 mL Nasal Spray Bottle NASAL SCH ×3 (09:54→21:50)
--- NOTE | 2016-05-20 10:58 | PCM.PNMED ---
Subjective Date of Service May 20, 2016 Subjective Pt doing well this morning. She states she has noticed some improvement with respect to her facial droop and she feels her speech is slightly less slurred. Pt continues to deny any weakness in her upper and lower extremities. She denies dizziness, headache, and visual problems. No complaints or concerns at this time. Exam Vital Signs Vital Sign - Last Date Time Temp Pulse Resp B/P Pulse Ox O2 Delivery O2 Flow Rate FiO2 05/20/16 09:59 36.6 94 18 152/70 91 Room Air Intake and Output 05/19/16 05/19/16 05/20/16 Cumulative From/Thru 15:00 23:00 07:00 05/18/16 07:25 - 05/20/16 06:54 Intake Total 1443 ml 836 ml 1240 ml 4253 ml Output Total 1250 ml 600 ml 2050 ml Balance 1443 ml -414 ml 640 ml 2203 ml Intake Oral 836 ml 100 ml 1036 ml IV Total 1443 ml 1140 ml 3217 ml Output Urine Total 1250 ml 600 ml 2050 ml # Bowel Movements 0 0 0 Exam GENERAL: NAD, Pt laying in bed comfortably HEENT: AT/NC; PERRLA, EOMI, MM moist CARDIAC: RRR, No M/R/G PULM: CTAB ABD: Soft, NT, ND, Positive BS; No hepatosplenomegaly appreciated EXT: No C/C/E; No calve tenderness bilaterally NEURO: Alert and oriented x3; Following all commands; 3/5 strength in bilateral upper and lower extremities, Slurred speech present; Pt continues to have some left sided facial droop PSYCH: Normal mood and affect IVs and Medications Medications Reviewed: Medications were reviewed in detail Lab and Diagnostics Result Diagram: 05/20/1661505/20/16615 Microbiology Urine culture pending. . X-Rays, CTs and MRIs CT BRAIN WITH AND WITHOUT CONTRAST INDICATIONS: Stroke TECHNIQUE: 4.5 mm thick angled axial sections acquired from the foramen magnum to the vertex both before and after the administration of intravenous contrast, with coronal reformats. COMPARISON: [facility], CT, CT ANGIO BRAIN NECK TPA, 05/18/2016, 7: 51. [facility], CT, CT HEAD WO CONTRAST, 04/24/2016, 4:46 AM. FINDINGS: Image quality: Excellent. CSF spaces: Basal cisterns are patent. No extra-axial fluid collections. Ventricles are symmetric in size and shape. Brain: No midline shift. No intracranial bleeds or masses. No abnormal intracranial enhancement. There is an overlie of mild cerebral volume loss for age. There is periventricular white matter chronic small vessel ischemic change. There also is a newly identified subacute stroke present since the comparison CT of the brain 04/24/16. This also is appreciably better visualized than on the comparison head CT 05/18/16 performed at 07:51 in the morning this is located at the upper margin of the insular cortex on the right, tracking into the anterior half of the powell radiata on the right near the frontal horn of the right lateral ventricle, measuring approximately 2 cm in maximal AP dimension. There is intracranial internal carotid artery atherosclerosis. Skull and face: Calvarium and visualized facial bones appear intact, without suspicious lesions. Sinuses: Visualized sinuses and mastoids are clear. IMPRESSION: Definite new finding of subacute ischemic injury involving the superior right insular cortex region tracking cephalad into the anterior half of the right powell radiata, measuring up to 2 cm in maximal AP dimension without associated mass effect or hemorrhage. This is clearly visualized by the current study and likely was present to a very faint degree at 7 in the morning yesterday, and was not present during CT scanning 04/24/16. As noted, no mass effect or hemorrhage is associated. . 12-lead ECG EKG: Atrial fibrillation, heart rate 78, normal axis. . Assessment & Plan Geetha Emanuel is an 85-year-old female with a past medical history significant for paroxysmal atrial fibrillation, colon cancer status post colon resection 2 and chemotherapy and uterine cancer status post total abdominal hysterectomy who presented to the [facility] emergency Department via EMS after waking up with stroke symptoms eft-sided facial droop and upper extremity weakness that are persistent. 1. Acute CVA - Patient presented with symptoms of CVA including left-sided facial droop - Repeat CT of the brain confirms presence of an acute stroke - Continue Warfarin per Neurology, INR remains therapeutic - BP is elevated today, and pt needs tight BP control therefore I will restart her home dose of Metoprolol and monitor her BP closely throughout the day - Continue Atorvastatin for now - ECHO with bubble study is currently pending - CT angiogram of the head and neck does not reveal any hemodynamically significant stenosis - PT recommends pt to have inpatient rehabilitation and this is currently awaiting authorization from her insurance 2. Atrial Fibrillation, Paroxysmal - Pt is presently in NSR - Patient's INR remains therapeutic today - Restart Metoprolol now - Pharmacy to continue managing Warfarin dosing and recheck INR in AM 3. Essential Hypertension, Uncontrolled - Restart home Metoprolol - Monitor BP closely - If BP remains elevated despite current dose of Metoprolol, increase dose or add low dose Amlodipine daily 4. Hypothyroidism - Continue home dose of Levothyroxine 88 g daily. 5. Disposition - Anticipate discharge to inpatient rehabilitation tomorrow, pending insurance authorization vs SNF placement on 05/21/2016 VTE Prophylaxis: Sub-Q Heparin (Unfractionated) Resuscitation Status: CPR: Attempt Resuscitation Charli Kearns MD May 20, 2016 10:58
--- NOTE | 2016-05-20 11:19 | DRSVH ---
PROCEDURE: US BILATERAL DUPLEX DOPPLER IMAGING OF THE CAROTIDS ([id number]) INDICATIONS: Evaluate stroke follow up TECHNIQUE: Color and pulse Doppler interrogation was performed of both carotid systems, with image documentation and velocity measurements. COMPARISON: None. FINDINGS: All stenosis calculations are based on NASCET criteria. Right side: Brachial blood pressure: IV in place, now blood pressure obtained. Common Carotid Artery(Distal) PSV: 73.50 cm/s Internal Carotid Artery PSV- Proximal: 68.80 cm/s Mid-lon.50 cm/s Distal: 58.50 cm/s EDV - Proximal: 8.10 cm/s Mid-lon.20 cm/s Distal: 11.50 cm/s External Carotid Artery(Proximal) PSV: 100.60 cm/s ICA/CCA PSV ratio: 1.0 Salazar scale imaging description: Scattered small amounts of atherosclerotic plaque are seen. Percent internal carotid artery stenosis: Less than 50% diameter. Vertebral artery: Flow direction is antegrade. Left side: Brachial blood pressure: 143/85 mm Hg. Common Carotid Artery(Distal) PSV: 71.70 cm/s Internal Carotid Artery PSV - Proximal: 74 cm/s Mid-lon.40 cm/s Distal: 86.20 cm/s EDV - Proximal: 12.70 cm/s Mid-lon.60 cm/s Distal: 15.60 cm/s External Carotid Artery(Proximal) PSV: 101.80 cm/s ICA/CCA PSV ratio: 1.2 Salazar scale imaging description: Minimal atherosclerotic plaquing is present. Percent internal carotid artery stenosis: Less than 50% diameter stenosis. Vertebral artery: Flow direction is antegrade. IMPRESSION: There is less than 50% diameter stenosis at the origin of both internal carotid arteries. Dictated by: Patrick Grey M.D. on 05/20/2016 at 11:15 Approved by: Patrick Grey M.D. on 05/20/2016 at 11:17
--- NOTE | 2016-05-20 15:35 | NUR ---
Social Work-continued d/c planning: Data:EMR reviewed. Pt is on day 2 of hospitalization for stroke per H&P. Pt is not medically stable. PT and ST both saw pt today and are recommend Inpt rehab vs SNF. SW also explained pt would have to have 24/7 care at home to be able to go to inpt rehab. SW left another message for son Александр to confirm discharge plan for Inpt rehab, no return call. [facility] can accept pt when medically stable. Pt will need authorization. Paperwork in the chart. SW will continue to follow. Assessment:pt who would benefit from inpt vs. SNF. Plan:[facility] has accepted pt with Dr. Hampton to follow. authorization will need to be updated. SW has left message for son again to discuss discharge plan for inpt rehab,as this is the recommendation. IF son is able to provide 24/7 care at home post rehab then referral can be made to [facility] inpt rehab. Paperwork in the chart. SW will continue to follow. AVRIL Banuelos
--- NOTE | 2016-05-20 15:35 | NUR ---
[facility] can accept with Dr. Hampton to follow. authorization will need to be obtained. AVRIL Banuelos
--- NOTE | 2016-05-20 17:59 | NUR ---
Neuro/activity Assumed care of pt at 1500. Pt up with PT, noted obvious L sided facial droop at rest and with smile, tongue at midline. RUE maintenance assistant > LUE maintenance assistant. Pt able to raise RUE without issue, LUE raises slightly. While amb with PT with FWW, pt turning to left. She did agree to sit up in chair for dinner, tolerated dysphagia mechanical, NTL diet without issue. Denies any pain/discomfort. Call light in reach.
--- NOTE | 2016-05-20 19:16 | DRSVH ---
[facility] [address] [place] [address] Echocardiogram Report Name: CARLOS SHIPMAN JStfaraz Juan e: 05/20/2016 Height: 63 in Hospital Exam Location: [facility] Weight: 112 lb Gender: Female BSA: 1.5 m2 : 1930 Age: 85 yrs BP: 167/94 mmHg Reason For Study: STROKE Ordering Physician: HOSPITALIST [facility] Performed By: Sancho Herrera Referring Physician: Aileen SUNSHINE Interpretation Summary Pace rhythm with pacer wire in the rright ventricle. 1. Normal LV size and function. The estimated ejection fraction is 60%. 2. Severe biatrial enlargement with intact interatrial septum. Elevated E/e ration suggestive of elevated filling pressure. 3. Severe mitral stenosis based upon mean gradient. MVA area by planimetry is 1.5cm2. Mild mitral regurgitation. 4. Severe tricuspid regurgitation. Systolic flow reversal in the hepatic vein. 5. Right sided pleural effusion. Procedure: A two-dimensional transthoracic echocardiogram with color flow and Doppler was performed. The study quality was technically adequate. Comparison is made with the echocardiogram of 08/31/11. The patient was in atrial fibrillation with rapid ventricular response during the exam with a heart rate exceeding 100 bpm. The patient had a heart rate of 78-117 beats per minute. Left Ventricle: Left ventricular wall thickness is mildly increased. The left ventricular cavity is small. Trabeculae near apex are visualized. No thrombus is observed. The ejection fraction is estimated to be 70-75%. There are no focal wall motion abnormalities. The E/E' ratio is severely increased, suggesting possible increased filling pressures. Right Ventricle: The right ventricle is normal in size and function. Atria: The left atrium is severely dilated. The right atrium is severely dilated. The interatrial septum is intact with no evidence for an atrial septal defect. Mitral Valve: There is moderate to severe mitral annular calcification. The mitral valve leaflets are moderately calcified. The mean pressure gradient of the mitral valve is 9.6 mmHg. The mitral valve area by pressure half-time is 1.5 cm2 by planimetry. There is mild mitral regurgitation. Aortic Valve: The aortic valve is moderately calcified. The peak aortic velocity is 1.5 m/sec. The peak aortic velocity on the previous exam was 1.3 m/sec. There is trace aortic regurgitation. Tricuspid Valve: The tricuspid valve leaflets are thin and pliable. There is severe tricuspid regurgitation. The right ventricular systolic pressure is estimated at 40 mmHg assuming a right atrial pressure of 8 mm Hg. Pulmonic Valve: The pulmonic valve is normal in structure and function. There is trace pulmonic regurgitation. Great Vessels: The aortic root is normal size. The dimensions of the ascending aorta are normal. The pulmonary artery is normal size. The IVC is of normal diameter and collapses less than 50% with a sniff. This suggests a right atrial pressure of 8 mm Hg. Systolic flow reversal in the hepatic vein. Pericardium/ Pleura There is no pericardial effusion. There is a moderate right-sided pleural effusion. MMode/2D Measurements & Calculations LVIDd: 3.6 cm LA dimension: 3.4 cm RA long axis LVOT diam LVIDs: 1.7 cm FS: 53.0 % LA A2 area: 22.1 cm RA area Ao root diam EPSS: 0.67 cm LA A4 area: 26.4 cm IVSd: 0.77 cm LA length (vol): 5.9 cm : 20.0 cm Aortic Jxn LVPWd: 0.99 cm LA vol: 83.4 ml RA vol: 65.5 ml LA vol index RA asc Aorta : 43.4 mm2 Diam: 2.8 cm IVC diam: 2.1 cm LV gomez. diameter/BSA LV sys. diameter/BSA (cm/m^2): 2.4 (cm/m^2): 1.1 Doppler Measurements & Calculations Ao V2 max MV E max tra MV E/A: 101.4 TR max tra : 151.3 cm/sec : 156.2 cm/sec Med Peak E' Tra : 283.5 cm/sec Ao max PG MV A max tra TR max PG : 9.2 mmHg E/E' med: 28.0 : 32.2 mmHg Ao mean PG MV P1/2t: 49.0 msec PA V2 max : 90.2 cm/sec LVOT Max Tra MVA(VTI): 1.4 cm PA mean PG : 79.9 cm/sec MVA(traced): 1.5 cm2 PA Accel Time XUAN(I,D): 1.4 cm : 0.07 sec sev ratio MV V2 mean MV P1/2t max tra Ao V2 mean LV V1 max PG : 144.4 cm/sec : 116.2 cm/sec MV mean PG MVA(P1/2t): 4.5 cm2 Ao V2 VTI: 27.9 cmLV V1 VTI XUAN(V,D): 1.3 cm2 : 14.9 cm MV V2 VTI MV dec time : 0.17 sec PA V2 mean XUAN indexed to BSA : 66.1 cm/sec (cm^2/m^2): 0.90 PA pr(Accel) : 49.1 mmHg Electronically signed by: Dr. Sudhakar aPniagua on Reading Physician:05/20/2016 07:16 PM
[2016-05-21 02:30] VITALS: BP 147/76; PULSE 60; RESP 16; O2SAT 95
--- NOTE | 2016-05-21 06:02 | NUR ---
Neuro Stable A&Ox3, neurocheck remains stable overnight:left facial droop,tongue at midline, left sided weakness, strength 4/5 at left upper and lower extremities, full strength 5/5 at right extremities, sensation intact, slightly slurred speech. Denies headache/N/V/numbness,tingling. Up to BSC with 1-PA FWW, body tends to lean to the weak side, unsteady gait. VSS.
[2016-05-21 06:04] VITALS: BP 146/80; PULSE 89; RESP 18; O2SAT 99
[2016-05-21 07:13] LABS: INR 2.07 ratio
--- NOTE | 2016-05-21 08:14 | PCM.PHAPRO ---
Progress Date of Service: May 21, 2016 Left-sided facial droop and weakness. . INR = 2.07 Pt continues to received warfarin for afib, goal 2-3. INR today is therapeutic. Will continue home dose 3mg warfarin today. INRs ordered. Pharmacy will continue to follow this pt's warfarin therapy. Prudence Agee PharmD May 21, 2016 08:14
[2016-05-21] MEDS: Ipratropium 0.03% 30 mL Nasal Spray Bottle NASAL SCH (09:24)
--- NOTE | 2016-05-21 10:02 | NUR ---
Called and left message for Inna Montes CM at [facility] asking for review for transfer to SNF. 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
[2016-05-21 10:33] VITALS: BP 132/76; PULSE 81; RESP 18; O2SAT 96
--- NOTE | 2016-05-21 10:55 | NUR ---
Evaluation completed. Please go to "Notes" then click on "Assessments and Notes" (bottom left corner of screen). Then select appropriate discipline tab on top of screen.
[2016-05-21 10:57] VITALS: PULSE 90
--- NOTE | 2016-05-21 11:33 | PCM.DIMED ---
Colette Ray DO 05/21/16 1133: Discharge Instructions Date of Service May 21, 2016 Dates of Hospitalization May 18, 2016 at 11:29 Discharge Diagnosis Discharge Diagnosis 1. Acute CVA, stable 2. Atrial Fibrillation, Paroxysmal, stable 3. Essential Hypertension, stable 4. Hypothyroidism, stable Medication Instructions Take Atorvastatin 40 mg daily Diet Heart Healthy Activity Limited until seen by PCP, Outpatient Physical Therapy Call your provider Fever or Chills, Shortness of breath, Bleeding, Chest pain, Vomitting, Excessive diarrhea, Weakness (unilateral) Patient Instructions Follow-up plan Follow up with your PCP regarding recent hospitalization for stroke within the next 1 week. Please follow up with outpatient physical therapy for rehabilitation. Follow-up Provider: PAULINA FLOYD MD Follow-up with PCP in: 2 weeks Mel Ramos DO 05/22/16 1518: Discharge Instructions Attending's Statement The patient was seen and examined together with Dr. Ray on 05/21/16 and I agree with the history, exam and plan as outlined in the note above. Colette Ray DO May 21, 2016 11:33 Mel Ramos DO May 22, 2016 15:18
[2016-05-21] MEDS ORDERED: LIP40 PO (11:36)
--- NOTE | 2016-05-21 11:50 | PCM.DC.MED ---
Discharge Summary Date of Service May 21, 2016 Dates of Hospitalization Date of Hospital Admission May 18, 2016 at 11:29 Date of Discharge: May 21, 2016 Providers: Admitting Physician: Charli Kearns MD Primary Care Physician: Enio Downs MD Attending Physician: Charli Kearns MD Diagnosis at Time of Discharge Diagnosis at Time of Discharge 1. Acute CVA, resolving 2. Atrial Fibrillation, Paroxysmal, stable 3. Essential Hypertension, stable 4. Hypothyroidism, stable Procedures XRay, CTs & MRIs CT BRAIN WITH AND WITHOUT CONTRAST IMPRESSION: Definite new finding of subacute ischemic injury involving the superior right insular cortex region tracking cephalad into the anterior half of the right powell radiata, measuring up to 2 cm in maximal AP dimension without associated mass effect or hemorrhage. This is clearly visualized by the current study and likely was present to a very faint degree at 7 in the morning yesterday, and was not present during CT scanning 04/24/16. As noted, no mass effect or hemorrhage is associated. By its appearance and evolution underlying malignancy is not suspected. Dictated by: Gabriel Long M.D. on 05/19/2016 at 13:33 Approved by: Gabriel Long M.D. on 05/19/2016 at 13:40 . ECG 12 Lead EKG: Atrial fibrillation, heart rate 78, normal axis. . Cardiac Echo Impression Echocardiogram Report Interpretation Summary Pace rhythm with pacer wire in the rright ventricle. 1. Normal LV size and function. The estimated ejection fraction is 60%. 2. Severe biatrial enlargement with intact interatrial septum. Elevated E/e ration suggestive of elevated filling pressure. 3. Severe mitral stenosis based upon mean gradient. MVA area by planimetry is 1.5cm2. Mild mitral regurgitation. 4. Severe tricuspid regurgitation. Systolic flow reversal in the hepatic vein. 5. Right sided pleural effusion. Electronically signed by: Dr. Sudhakar Paniagua on Reading Physician:05/20/2016 07:16 PM Brief History Per Admitting Physician: Charli Kearns MD: Geetha Emanuel is an 85-year-old female with a past medical history significant for paroxysmal atrial fibrillation, colon cancer status post colon resection 2 and chemotherapy and uterine cancer status post total abdominal hysterectomy who presented to the [facility] emergency Department via EMS after waking up with stroke symptoms around midnight. She reports that when she awoke she could not walk. She then called her son and was having difficulty with speaking and her words were slurred. She also noticed that she was drooling out of her mouth. She had accompanying lightheadedness and left-sided facial droop. It is unknown when exactly the stroke occurred. She reports that she wakes up very early but this was earlier than usual. She is unsure of why she awoke. She has never had a stroke before. Initial evaluation in the ED was at 0719. She denies headache, vision changes, facial numbness or tingling, chest pain, shortness of breath, palpitations, abdominal pain, nausea, vomiting , dysuria, bowel or bladder incontinence. She has no other complaints at this time. Vital signs in the ER: Temperature 36.7. Pulse 107. Respiratory rate 18. Blood pressure 156/102. Pulse ox 96% on room air. She was given 1 L NS. Her PCP is Dr. Downs in [place]. . Hospital Course Geetha Emanuel is an 85-year-old female with a past medical history significant for paroxysmal atrial fibrillation, colon cancer status post colon resection 2 and chemotherapy and uterine cancer status post total abdominal hysterectomy who presented to the [facility] emergency Department via EMS after waking up with stroke symptoms eft-sided facial droop and upper extremity weakness that are persistent. Patient discharged on hospital day 4. 1. Acute CVA, resolving - Patient presented with symptoms of CVA including left-sided facial droop - Repeat CT of the brain confirmed presence of an acute stroke - Continued Warfarin per Neurology, INR remained therapeutic, 2.07 on the day of discharge - Continued Metoprolol for BP - Continued Atorvastatin 40 mg daily - ECHO with bubble study revealed: EF: 60% - CT angiogram of the head and neck did not reveal any hemodynamically significant stenosis - PT recommended pt to have inpatient rehabilitation - Patient discharged home with outpatient PT 2. Atrial Fibrillation, Paroxysmal, stable - Patient was in NSR during discharge - Patient's INR remained therapeutic - Continued Metoprolol 3. Essential Hypertension, stable - Continued home Metoprolol 4. Hypothyroidism - Continued Levothyroxine Exam Vital Signs (Last) Date Time Temp Pulse Resp B/P Pulse Ox O2 Delivery O2 Flow Rate FiO2 05/21/16 10:57 90 05/21/16 10:33 36.7 18 132/76 96 Room Air Exam General: Elderly female in no acute distress, thin, appropriately interactive, sitting comfortably on the chair HEENT: Normocephalic, atraumatic. Head is rotated right. External ears without defect. Pupils equal, round, and reactive to light. Lateral gaze to right. Anicteric sclerae, moist conjunctivae, and no lid lag. Oropharynx free of erythema and cobble stoning with moist mucosa. Tongue deviates to left. Neck: Supple with decreased range of motion slightly to left. No jugular venous distension. No bruits. No lymphadenopathy or thyromegaly. Cardiovascular: Irregularly irregular with no murmurs, rubs, or gallops appreciated Pulmonary: Clear to auscultation bilaterally with no crackles, wheezes, or rhonchi. Normal respiratory effort with no use of accessory muscles. Abdomen: Soft, nontender, nondistended, bowel sounds present. No hepatosplenomegaly or masses appreciated. Extremities: No clubbing, cyanosis, or edema. Skin: Normal temperature, turgor, and texture; no rash, ulcers, or subcutaneous nodules appreciated. Neurological: Left-sided facial droop, left tongue deviation (improved), left upper extremity weakness (improved), slurred speech, mild drooling. Psychiatric: Normal mood and affect. Alert and oriented to person, place, and time. Test 05/18/16 07:40 05/18/16 10:43 05/18/16 14:50 05/19/16 08:36 Activated Partial Thromboplast Time 32.1sec (22.8-33.0) Thyroid Stimulating Hormone (TSH) 3.510uIU/mL (0.450-4.500) Urine Color Straw (YELLOW) Urine Appearance Hazy (CLEAR,HAZY) Urine pH 7.5 (5.0-8.0) Urine Specific [place] 1.010 (1.003-1.035) Urine Protein Negativemg/dL (NEG,TRACE) Urine Glucose (UA) Negativemg/dL (NEGATIVE) Urine Ketones Tracemg/dL (NEGATIVE) Urine Occult Blood Trace (NEGATIVE) Urine Nitrite Negative (NEGATIVE) Urine Bilirubin Negative (NEGATIVE) Urine Urobilinogen Normalmg/dL (NORMAL) Urine Leukocyte Esterase Trace (NEGATIVE) Urine RBC 3-10/hpf (0-2) Urine WBC 0-5/hpf (0-5) Urine Epithelial Cells Occasional/hpf (NONE-MOD) Urine Crystals None seen (NONE SEEN) Urine Bacteria Few/hpf (NONE-FEW) Urine Hyaline Casts None/lpf (NONE) Urine Granular Casts None seen (NONE SEEN) Urine Waxy Casts None seen (NONE SEEN) Urine Red Blood Cell Casts None seen (NONE SEEN) Urine White Blood Cell Casts None seen (NONE SEEN) Urine Mucus None seen (None Seen) Urine Trichomonas None seen (NONE SEEN) Urine Yeast None (NONE SEEN) Urinalysis Comment None Urine Culture Reflexed Indicated Magnesium Level 2.1mg/dL (1.6-2.6) Troponin T < 0.010ug/L (0.0-0.011) Hemoglobin A1c 5.7% (4.8-5.6) Triglycerides Level 81mg/dL (0-149) Cholesterol Level 172mg/dL (100-199) LDL Cholesterol, Calculated 87.800mg/dL (0-99) VLDL Cholesterol 16.200mg/dL HDL Cholesterol 68mg/dL (>39) Cholesterol/HDL Ratio 2.53 (0.0-4.4) Test 05/20/16 06:16 05/21/16 06:27 White Blood Count 5.3th/mm3 (3.8-10.1) Red Blood Count 4.56mil/mm3 (3.90-5.20) Hemoglobin 13.9g/dL (12.0-15.6) Hematocrit 42.0% (35.0-46.0) Mean Corpuscular Volume 92.1fL (81-100) Mean Corpuscular Hemoglobin 30.5pg (27.0-35.0) Mean Corpuscular Hemoglobin Concent 33.1% (32.0-37.0) Red Cell Distribution Width 15.1% (12.3-15.4) Platelet Count 143bil/L (150-400) Neutrophils (%) (Auto) 64.9% (40-74) Lymphocytes (%) (Auto) 22.1% (14-46) Monocytes (%) (Auto) 9.7% (4-12) Eosinophils (%) (Auto) 2.3% (0-5) Basophils (%) (Auto) 0.8% (0-3) Sodium Level 143mEq/L (134-144) Potassium Level 4.3mEq/L (3.5-5.2) Chloride Level 107mEq/L (97-108) Carbon Dioxide Level 25mmol/L (18-29) Blood Urea Nitrogen 9mg/dL (8-27) Creatinine 0.57mg/dL (0.57-1.00) Estimat Glomerular Filtration Rate 145mL/min (>59) Glucose Level 90mg/dL (60-99) Calcium Level 8.1mg/dL (8.5-10.1) Total Bilirubin 0.8mg/dL (0.0-1.2) Aspartate Amino Transf (AST/SGOT) 21U/L (0-50) Alanine Aminotransferase (ALT/SGPT) 13U/L (0-32) Alkaline Phosphatase 40U/L (25-165) Total Protein 5.5g/dL (6.4-8.4) Albumin 3.6g/dL (3.4-5.0) Prothrombin Time 22.5sec (8.1-12.5) Prothromb Time International Ratio 2.07ratio Microbiology Results UA: mixed urogenital fany . Discharge Medications Discharge Medications Alendronate (Alendronate) 35 Mg Tablet 70 MG PO WEEKLY (Reported) Atorvastatin (Lipitor) 40 Mg Tablet 40 MG PO DAILY Prescribed by: VERONICA VARGAS DO Duloxetine HCl (Duloxetine HCl) 40 Mg Capsule.dr 30 MG PO DAILY (Reported) Ipratropium [place] (Ipratropium [place] 0.03% Nasal) 30 Ml [place] 1 SPRAY NS TID (Reported) Levothyroxine (Levothyroxine) 88 Mcg Tablet 88 MCG PO DAILY (Reported) Metoprolol Tartrate (Metoprolol Tartrate) 37.5 Mg Tablet 37.5 MG PO HS (Reported ) Warfarin Sodium (Warfarin Sodium) 3 Mg Tablet 3 MG PO DAILYWD (Reported) Additional med instructions Take Atorvastatin 40 mg daily Followup Plan Discharge Diet: Heart Healthy Discharge Activity: Limited until seen by PCP Follow-up Provider: ENIO DOWNS MD Follow-up with PCP in: 2 weeks Attending Statement The patient was seen and examined together with on 05/21/16 I agree with the history, exam and plan as outlined in the note above. copies to: ENIO DOWNS MD, Oksana S DO May 21, 2016 11:50 Mel Ramos DO May 22, 2016 15:21 Follow-up with PCP in: 2 weeks Veronica Vargas DO May 21, 2016 11:50
--- NOTE | 2016-05-21 12:47 | NUR ---
Discharge Pt discharged at this time, all belongings gathered and returned to pt, VSS, no complains of chest discomfrt/pressure, increased weakness or SOB. IV D/Cd intact, tele monitor removed. Hard copy of new prescription given to pt to fill, Contact number of Otpt PT given for contact to schedule appts. Discharge packet printed and reviewed with pt. [place] [facility] [place] INTERNAL MEDICINE PHYSICIAN ASSISTANT in wheelchair to be transported home in private vehicle driven by son.
--- NOTE | 2016-05-21 15:29 | NUR ---
Social Work: Discharge Late Entry Data & Assessment: Community Affairs Director met with patient and patient's son Александр Mcfarland at bedside to discuss discharge planning. PT is recommending outpatient physical therapy and patient is in agreement. Patient's son reported that he will bring the patient to Outpatient therapy at [facility]. Community Affairs Director provided patient and patient family with the telephone number and address to [facility] for out patient therapy. Community Affairs Director also called [facility] to notify them of the referral. There was no answer and SW left a message requesting a call back. Plan: Patient discharging home with son and outpatient Physical therapy. Patient discharging home in POV. Whit Kinney LMSW, ACDayna
--- NOTE | 2016-05-22 15:22 | PCM.PNMED ---
Subjective Date of Service May 21, 2016 Subjective Patient is an 85-year-old female with a past medical history significant for paroxysmal atrial fibrillation, on warfarin, colon cancer status post colon resection 2 and chemotherapy and uterine cancer status post total abdominal hysterectomy who presented to the [facility] ED via EMS after waking up with stroke symptoms around midnight. She was admitted for CVA management and treatment. Hospital day #4. No acute overnight events. Patient is doing well this morning. She states she has noticed some improvement with respect to her facial droop and she feels her speech is slightly less slurred. She denies any weakness in upper and lower extremities. She denies dizziness, headache, and visual problems. Exam Vital Signs Vital Sign - Last Date Time Temp Pulse Resp B/P Pulse Ox O2 Delivery O2 Flow Rate FiO2 05/21/16 06:04 36.4 89 18 146/80 99 Room Air Intake and Output 05/20/16 05/20/16 05/21/16 Cumulative From/Thru 15:00 23:00 07:00 05/18/16 07:25 - 05/21/16 06:04 Intake Total 458 ml 900 ml 5611 ml Output Total 2000 ml 4050 ml Balance 458 ml -1100 ml 1561 ml Intake Oral 900 ml 1936 ml IV Total 458 ml 3675 ml Output Urine Total 2000 ml 4050 ml # Bowel Movements 0 Exam GENERAL: NAD, Pt laying in bed comfortably HEENT: AT/NC; PERRLA, EOMI, MM moist CARDIAC: RRR, No M/R/G PULM: CTAB ABD: Soft, NT, ND, Positive BS; No hepatosplenomegaly appreciated EXT: No C/C/E; No calve tenderness bilaterally NEURO: Alert and oriented x3; Following all commands; 3/5 strength in bilateral upper and lower extremities, Slurred speech present; Pt continues to have some left sided facial droop PSYCH: Normal mood and affect Lab and Diagnostics Result Diagram: 05/20/1661505/20/16615 Microbiology Urine culture pending. . X-Rays, CTs and MRIs CT BRAIN WITH AND WITHOUT CONTRAST IMPRESSION: Definite new finding of subacute ischemic injury involving the superior right insular cortex region tracking cephalad into the anterior half of the right powell radiata, measuring up to 2 cm in maximal AP dimension without associated mass effect or hemorrhage. This is clearly visualized by the current study and likely was present to a very faint degree at 7 in the morning yesterday, and was not present during CT scanning 04/24/16. As noted, no mass effect or hemorrhage is associated. Dictated by: Gabriel Long M.D. on 05/19/2016 at 13:33 Approved by: Gabriel Long M.D. on 05/19/2016 at 13:40 US BILATERAL DUPLEX DOPPLER IMAGING OF THE CAROTIDS IMPRESSION: There is less than 50% diameter stenosis at the origin of both internal carotid arteries. Dictated by: Patrick Grey M.D. on 05/20/2016 at 11:15 Approved by: Patrick Grey M.D. on 05/20/2016 at 11:17 12-lead ECG EKG: Atrial fibrillation, heart rate 78, normal axis. . Cardiac Echo Impressions Echocardiogram Report Interpretation Summary Pace rhythm with pacer wire in the right ventricle. 1. Normal LV size and function. The estimated ejection fraction is 60%. 2. Severe biatrial enlargement with intact interatrial septum. Elevated E/e ration suggestive of elevated filling pressure. 3. Severe mitral stenosis based upon mean gradient. MVA area by planimetry is 1.5cm2. Mild mitral regurgitation. 4. Severe tricuspid regurgitation. Systolic flow reversal in the hepatic vein. 5. Right sided pleural effusion. Electronically signed by: Dr. Sudhakar Paniagua on Reading Physician:05/20/2016 07:16 PM Assessment & Plan Geetha Emanuel is an 85-year-old female with a past medical history significant for paroxysmal atrial fibrillation, colon cancer status post colon resection 2 and chemotherapy and uterine cancer status post total abdominal hysterectomy who presented to the [facility] emergency Department via EMS after waking up with stroke symptoms eft-sided facial droop and upper extremity weakness that are persistent. 1. Acute CVA - Patient presented with symptoms of CVA including left-sided facial droop - Repeat CT of the brain confirms presence of an acute stroke - Continue Warfarin per Neurology, INR remains therapeutic, 2.07 today - BP 146/80 this morning, continue home dose of Metoprolol and monitor her BP closely throughout the day - Continue Atorvastatin - ECHO with bubble study: Pace rhythm with pacer wire in the right ventricle. 1. Normal LV size and function. The estimated ejection fraction is 60%. 2. Severe biatrial enlargement with intact interatrial septum. Elevated E/e ration suggestive of elevated filling pressure. 3. Severe mitral stenosis based upon mean gradient. MVA area by planimetry is 1.5cm2. Mild mitral regurgitation. 4. Severe tricuspid regurgitation. Systolic flow reversal in the hepatic vein. 5. Right sided pleural effusion. - CT angiogram of the head and neck does not reveal any hemodynamically significant stenosis - PT recommends pt to have inpatient rehabilitation and this is currently awaiting authorization from her insurance 2. Atrial Fibrillation, Paroxysmal - Pt is presently in A-fib in , V-paced - Patient's INR remains therapeutic today, 2.07 - Restart Metoprolol now - Pharmacy to continue managing Warfarin dosing and recheck INR in AM 3. Essential Hypertension, Uncontrolled - Continue Metoprolol - Monitor BP closely - If BP remains elevated despite current dose of Metoprolol, increase dose or add low dose Amlodipine daily 4. Hypothyroidism - Continue home dose of Levothyroxine 88 g daily. 5. Disposition - Anticipate discharge to inpatient rehabilitation tomorrow, pending insurance authorization vs SNF placement on 05/21/2016 VTE Prophylaxis: Sub-Q Heparin (Unfractionated) VTE Mechanical Devices: Intermittant Pneumatic CD Resuscitation Status: CPR: Attempt Resuscitation Attending Statement The patient was seen and examined together with Dr. Ray on 05/21/16 and I agree with the history, exam and plan as outlined in the note above. Colette Ray DO May 21, 2016 09:16 Mel Ramos DO May 22, 2016 15:22
== END 2016-05-21 12:50 | disposition home health service (06) | DRG 65 ==
LOC: EDBD 07:11 → SED 07:11 → MPC 11:29
PROVIDERS: ADMIT Family Medicine; ATTEND Family Medicine
DX: I63.9 Cerebral infarction, unspecified (principal); J90 Pleural effusion, not elsewhere classified; G81.90 Hemiplegia, unspecified affecting unspecified side; Z79.01 Long term (current) use of anticoagulants; Z87.891 Personal history of nicotine dependence; R29.810 Facial weakness; Z92.21 Personal history of antineoplastic chemotherapy; Z85.038 Personal history of other malignant neoplasm of large intestine; I48.0 Paroxysmal atrial fibrillation; E03.9 Hypothyroidism, unspecified; Z95.0 Presence of cardiac pacemaker; Z85.42 Personal history of malignant neoplasm of other parts of uterus; I10 Essential (primary) hypertension; I34.2 Nonrheumatic mitral (valve) stenosis; I36.8 Other nonrheumatic tricuspid valve disorders

== ENCOUNTER 2016-05-22 07:03 | Inpatient (IN) | payer MEDICARE ==
[~2016-05-22] VITALS: Ht 160 cm; Wt 51.5 kg
[2016-05-22] VITALS (13 sets, daily range): BP systolic 132–171; BP diastolic 71–95; PULSE 82–100; RESP 14–18; O2SAT 94–98
[~2016-05-22 07:03] MED LIST changes: +ALEN35TA31 PO; -CALC600T12 PO; -COU25 PO; -DIGO125T73 PO; +DULO40CA2 PO; +IPRA30SP8 NS; -LEVO137T18 PO; +LEVO88TA4 PO; +LIP40 PO; +METO37.5 PO; -MULT-64 PO; -OMEG-38 PO; -TOPR25T PO; +WARF3TAB7 PO
--- NOTE | 2016-05-22 07:05 | ED.REPORT ---
HPI-Stroke / CVA May 22, 2016 ED Provider: The patient is a 73 year old female with history of COPD, paroxysmal atrial fibrillation, colon cancer status post colon resection 2 and chemotherapy, and uterine cancer status post total abdominal hysterectomy, who presents to the emergency department complaining of left-sided weakness that was noticed at 0430. Last known normal was last night before going to bed. Her symptoms have improved since onset. The patient was admitted for a CVA from May 18-, discharged yesterday. She presented to the emergency department on the with slurred speech, left-sided weakness, and inability to walk. Nursing Notes Stated Complaint: STROKE SYMPTOMS Nursing Notes Reviewed: Yes (AquarisPLUS Int, Padinmotions not reconciled, EMR indicates ho warfarin use) Allergies: Coded Allergies: ciprofloxacin (Verified Allergy, Intermediate, rash, 05/18/16) Scheduled Alendronate (Alendronate) 35 Mg Tablet 70 MG PO WEEKLY (Reported) Atorvastatin (Lipitor) 40 Mg Tablet 40 MG PO DAILY Duloxetine HCl (Duloxetine HCl) 40 Mg Capsule.dr 30 MG PO DAILY (Reported) Ipratropium [place] (Ipratropium [place] 0.03% Nasal) 30 Ml [place] 1 SPRAY NS TID (Reported) Levothyroxine (Levothyroxine) 88 Mcg Tablet 88 MCG PO DAILY (Reported) Metoprolol Tartrate (Metoprolol Tartrate) 37.5 Mg Tablet 37.5 MG PO HS (Reported ) Warfarin Sodium (Warfarin Sodium) 3 Mg Tablet 3 MG PO DAILYWD (Reported) General Time Seen by Provider: 07:10 Chief Complaint Weakness Left-sided Hx Obtained From: Patient, Spouse Arrived By: Wheelchair Time last known well last night Sudden in Onset?: Yes Symptom Duration: Since onset Progression Since Onset: Constant Severity: Current: No pain currently Severity: Maximum: No pain Pertinent Negative: Pt denies other symptoms Recent Healthcare: Recent doctor visit, Recent hospitalization Similar Sx Previous: Yes Risk Factors NIH Stroke Scale Level of Consciousness: Alert and responsive (0) Ask Month & Age: Both questions right (0) Open/Close Eyes/Hand E/M Engineer: Performs both tasks (0) Horizontal EO Movements: None (0) Visual Wilkerson: No visual loss (0) Facial Palsy: Partial paral, lower (2) (left-side) Right Arm Motor Drift (10s): No drift 10 sec (0) Left Arm Motor Drift (10s): No drift 10 sec (0) (no drift but when first arrived unable to lift arm according to nurses, she does have to work harder on the left) Right Leg Motor Drift (5s): No drift 5 sec (0) Left Leg Motor Drift (5s): No drift 5 sec (0) (no drift but when first arrived unable to lift leg according to nurses, she does have to work harder on the left) Limb Ataxia FNF/Heel-Mccrary: No ataxia (0) Sensation (Arms/Legs/Face): No sensory loss (0) Language Aphasia: No aphasia, normal (0) Dysarthria: Slurring intelligible (1) Extinction/Inattention: No exctinct/inattent (0) NIHSS Score: 3 Time NIHSS Performed: 07:29 Date NIHSS Performed: May 22, 2016 Past Medical History Past Medical History Notes: Patient admitted for CVA May 18-2016-discharged yesterday Past Medical History Colon and uterine cancer CVA Admit 05/18- HTN Mild hypothyroidism Atrial Fibrillation on Warfarin Reports: COPD Past Surgical History Reports: Cholecystectomy, Hysterectomy Family History Noncontributory Smoking History Former Smoker Social History Other Social History: Good social support, Local resident Ambulatory Status Independent Review of Systems Review of Systems Note: +facial droop Neurologic: Reports: Focal weakness, Problem walking, Slurred speech Complete sys rev & neg: except as marked. Physical Exam Initial Vital Signs Vital Signs (First) Date Time Temp Pulse Resp B/P Pulse Ox O2 Delivery O2 Flow Rate FiO2 05/22/16 07:20 36.7 89 18 171/95 94 Room Air Initial VS: Reviewed, Unavailable (none on chart, ordered) ENT: Mucous membranes moist, Conjunctiva normal, No scleral icterus Abdomen / GI: Soft, Non-tender, No guarding, No rebound, No distention Lymphatic: No lymphadenopathy Extremities: Vascular intact, Neuro intact, No swelling, No tenderness Skin: Warm, Dry, No cyanosis Psychiatric: Mood/affect normal, Behavior normal, Normal thought content General/Constitutional: Awake, Alert, No acute distress, Cooperative Head / Eyes: Atraumatic, Normocephalic, PERRL, EOMI Neck: Atraumatic, Supple, Full range of motion, No swelling, Non-tender, No carotid bruit Respiratory / Chest: Atraumatic, Breath sounds NL, Breath sounds = bilat, No respiratory distress, No rales, No rhonchi, No wheezing Cardiovascular: Heart rate NL, Heart sounds NL, No murmurs, No rubs, Peripheral circulation NL Heart Rate / Rhythm: Positive: Irreg irregular rhythm Neurologic: Oriented X3 Speech: Positive: Slurred Left-sided facial droop. Slurred speech. When she first arrived according to nurses she had severe left hemiplegia and couldn't sit up. When I went to see her she is now using her left arm and leg. She states this is better than this morning but is worse than yesterday when she left the hospital. She is answering questions appropriately. Interpretation & Diagnostics Lab Results Interpretation Result Diagram: 05/22/16 0745 05/22/16 0745 Test 05/22/16 07:45 White Blood Count 7.9th/mm3 (3.8-10.1) Red Blood Count 4.80mil/mm3 (3.90-5.20) Hemoglobin 14.5g/dL (12.0-15.6) Hematocrit 43.3% (35.0-46.0) Mean Corpuscular Volume 90.2fL (81-100) Mean Corpuscular Hemoglobin 30.2pg (27.0-35.0) Mean Corpuscular Hemoglobin Concent 33.5% (32.0-37.0) Red Cell Distribution Width 14.9% (12.3-15.4) Platelet Count 167bil/L (150-400) Neutrophils (%) (Auto) 76.6% (40-74) Lymphocytes (%) (Auto) 13.9% (14-46) Monocytes (%) (Auto) 7.4% (4-12) Eosinophils (%) (Auto) 1.5% (0-5) Basophils (%) (Auto) 0.6% (0-3) Prothrombin Time 21.9sec (8.1-12.5) Prothromb Time International Ratio 2.02ratio Activated Partial Thromboplast Time 30.9sec (22.8-33.0) Sodium Level 140mEq/L (134-144) Potassium Level 4.2mEq/L (3.5-5.2) Chloride Level 103mEq/L (97-108) Carbon Dioxide Level 25mmol/L (18-29) Blood Urea Nitrogen 19mg/dL (8-27) Creatinine 0.57mg/dL (0.57-1.00) Estimat Glomerular Filtration Rate 145mL/min (>59) Glucose Level 106mg/dL (60-99) Calcium Level 8.9mg/dL (8.5-10.1) Total Bilirubin 1.1mg/dL (0.0-1.2) Aspartate Amino Transf (AST/SGOT) 30U/L (0-50) Alanine Aminotransferase (ALT/SGPT) 18U/L (0-32) Alkaline Phosphatase 43U/L (25-165) Troponin T < 0.010ug/L (0.0-0.011) Total Protein 6.3g/dL (6.4-8.4) Albumin 3.8g/dL (3.4-5.0) Hold Lima Top Tube Received (Received) Lab Results Interpretation: CBC normal + CMP normal INR therapeutic ECG Interpretation ECG Interpretation: Rate controlled atrial fibrillation No additional changes Time: 07:20 Interpreted by: ED physician CT Head Interpretation IMPRESSION: No interval change in appearance f the acute nonhemorrhagic right frontal/insular infarct. Age related white matter change. Dictated by Oswaldo Arita M.D. Study: Head CT no contrast Interpretation / Wet Read by: Interpret - Radiologist, Discussed w radiologist Re-Eval/Medical Decision Med Decision/Clinical Course This is an 85-year-old female who was just discharged yesterday following an admission for a stroke with left sided weakness went home yesterday. She has chronic atrial fibrillation and his antiplatelet or warfarin. She woke up this morning with much worsening symptoms, severe left facial paralysis, newly slurred speech-both worse than discharge, and she is unable to use her left leg , or left arm or even sit up. This too was dramatically worse than yesterday. She denied any headache. She had no additional complaints. A code stroke process was activated, and on arrival she went directly to CT, and I evaluated and return. At the time of return from CT check she states she starting to improve, cannot use her left arm and left leg-but overall she is still significantly worse with her deficits then she was when she was discharged yesterday. Fortunately your CT reveals no signs of hemorrhage or hemorrhagic transformation. He is still in atrial fibrillation, and her INR is therapeutic. And as noted, she had clinical improvement. She was mildly hypertensive on initial presentation but is improved on reevaluation, and does not meet criteria for emergent blood pressure management. He is being readmitted. She was seen by speech therapy and is now back to nothing by mouth. They will follow. The patient was followed by the neurologist Dr. roberto in the hospital previously, so he has been consulted and will follow. At this point the main treatment is supportive care. . Source of Hx: Old records, Family Re-Evaluation/Progress : Time of Eval: 08:46 Re-Evaluation/Progress Note: Discussed plan for admit with the patient and family. All questions were addressed. Consultation #1: Referral / Consult Name: Cristobal Roberto MD Consulted With: Neurology Requested Call at: 08:43 Call Returned at: 08:53 Crown Blocker: Agrees with eval, Agrees with plan Consultation #2: Referral / Consult Name: Mel Ramos DO Consulted With: Hospitalist Call Returned at: 09:02 Crown Blocker: Will see patient, Agrees with eval, Agrees with plan, Accepts admit Differential Diagnosis: Positive: Atrial fibrillation, Cerebrovascular accident , Negative: Electrolyte disorder, Epidural hemorrhage, Hepatic encephalopathy, Hyperglycemia, Hypoglycemia, Intoxication, alcohol, Intoxication, other drug, Intraparench hemorrhage, Subarachnoid hemorrhage, Subdural hemorrhage, Substance abuse disorder, Kalyan's paralysis Counseled Regarding: Diagnosis, Lab results, Need for admission Patient Discharge & Departure Impression: Primary Impression: CVA (cerebral vascular accident) CVA mechanism: unspecified Qualified Code: I63.9 - Cerebral infarction, unspecified Additional Impressions: Atrial fibrillation Atrial fibrillation type: chronic Qualified Code: I48.2 - Chronic atrial fibrillation Anticoagulated on warfarin Disposition: ADMITTED TO HOSPITAL Discharge Condition All VS Reviewed: Yes Condition: Stable Referrals: PAULINA FLOYD MD (PCP) Naye Attestation Portions of this note were transcribed by Jessica Schreiber. I, Dr. Horne personally performed the history, physical exam and medical decision-making; I reviewed and confirmed the accuracy of the information in the transcribed note. Signed by: Naye Evans, 05/22/2016 and 0940. copies to: PAULINA FLOYD MD, Matthew F MD May 22, 2016 07:05 Jessica Schreiber May 22, 2016 07:23
--- NOTE | 2016-05-22 07:51 | NUR ---
BECK OPERATOR evaluation on hold. Discussed with RN/MD. Strict NPO at this time. BECK OPERATOR to evaluate when stable.
[2016-05-22 07:52] LABS: BASOPHILS % (AUTO) 0.6 % (0-3); EOSINOPHILS % (AUTO) 1.5 % (0-5); MONOCYTES % (AUTO) 7.4 % (4-12); Mean Corpuscular Hemoglobin 30.2 pg (27.0-35.0); Mean Corpuscular Volume 90.2 fL (81-100); NEUTROPHILS % (AUTO) 76.6 % (40-74); Platelet Count 167 bil/L (150-400)
[2016-05-22 08:17] LABS: INR 2.02 ratio
[2016-05-22 08:34] LABS: TROPONIN T < 0.010 ug/L (0.0-0.011)
[2016-05-22] MEDS ORDERED: Alum-Mag Hydrox-Simeth 30 mL Suspension PO PRN ×2 (10:05→10:15)
[2016-05-22] MEDS ORDERED: Ondansetron 2 mg/mL 2 mL Inj IVPUSH PRN (10:05)
[2016-05-22] MEDS ORDERED: Labetalol 5 mg/mL 4 mL Inj IVPUSH PRN (10:15)
[2016-05-22] MEDS ORDERED: Polyethylene Glycol (PEG) 17 Gm Powder PO PRN (10:15)
[2016-05-22] MEDS ORDERED: Ondansetron 2 mg/mL 2 mL Inj IV PRN (10:15)
--- NOTE | 2016-05-22 11:00 | NUR ---
Admission Patient arrived on unit via gurney. Patient alert and oriented on arrival. Patient discharged yesterday, following a 3 day stay for a CVA. Patient reporting she didn't sleep much last night and was up by 1 or 2 AM. About 4 AM she found she was having Lt sided weakness. Patient currently displaying Lt facial droop, slurred speech and Lt arm/leg weakness with tingling/numbness of Lt hand. Patient seen by Ot/PT and Speech. Currently sitting up in chair.
--- NOTE | 2016-05-22 12:45 | DRSVH ---
PROCEDURE: CT BRAIN (TPA) ([id number]) INDICATIONS: Stroke TECHNIQUE: Noncontrast 4.5 mm thick angled axial sections acquired from the foramen magnum to the vertex, with c oronal reformats. COMPARISON: [facility], CT, CT BRAIN W&WO CON, 05/19/2016, 12:04. FINDINGS: Image quality: Excellent. CSF spaces: Basal cisterns are patent. No extra-axial fluid collections. The ventricles are symmet kelsie in size and shape. Brain: There is been continued evolution of a right frontal/insular infarct when compared with the [facility] dated 05/19/16. No hemorrhagic transformation. No new abnormal pringle-white differentiation. No mass effect. No intracranial hemorrhage. No midline shift. Skull and face: Calvarium and visualized facial bones appear intact, without suspicious lesions. Sinuses: Visualized sinuses and mastoids are clear. IMPRESSION: Continued evolution of a right frontal/insular infarct. No evidence for hemorrhagic trans formation. Note: The preliminary [facility] interpretation and the final report are concordant. This study fulfills neurological imaging criteria for inclusion or exclusion of acute stroke therapie s based on available published neurological guidelines. Dictated by: Skylar Olvera M.D. on 05/22/2016 at 12:38 Approved by: Skylar Olvera M.D. on 05/22/2016 at 12:44
[2016-05-22] MEDS: 0.9% Sodium Chloride 1,000 ML IV SCH (13:44)
--- NOTE | 2016-05-22 14:00 | NUR ---
Evaluation completed. Please go to "Notes" then click on "Assessments and Notes" (bottom left corner of screen). Then select appropriate discipline tab on top of screen.
--- NOTE | 2016-05-22 15:37 | PCM.HPMED ---
Subjective Date of Service May 22, 2016 Primary Provider: Admitting Physician: Mel Ramos DO Primary Care Physician: Enio Downs MD Attending Physician: Mel Ramos DO Chief Complaint: Left-sided weakness History of Present Illness: Geetha Emanuel is an 85-year-old female with a past medical history significant for paroxysmal atrial fibrillation, colon cancer status post colon resection 2 and chemotherapy and uterine cancer status post total abdominal hysterectomy and recent hospitalization (05/18/16-05/21/16) for acute CVA, who presented to the [facility] ED with recurrence of left upper extremity weakness, facial droop, and slurred speech. Patient states she woke up with stroke symptoms around midnight. She reports that when she awoke she could not walk as she was weak on her left side. Her son noticed the symptoms around 5 AM in the morning and took her to the emergency department. At that time patient was having difficulty with speaking and her words were slurred. She had accompanying lightheadedness and left-sided facial droop. She denies headache, vision changes, facial numbness or tingling, chest pain, shortness of breath, palpitations, abdominal pain, nausea, vomiting, dysuria, bowel or bladder incontinence. She has no other complaints at this time. Vital signs in the ER: Temperature 36.7. Pulse 89. Respiratory rate 18. Blood pressure 171/95. Pulse ox 98% on room air. She was given 1 L NS. Her PCP is Dr. Downs in [place]. . Review of Systems: A comprehensive review of systems was conducted with the patient and found to be negative except as above in the history of present illness. Allergies Coded Allergies: ciprofloxacin (Verified Allergy, Intermediate, rash, 05/18/16) Home Medications Atorvastatin 40 mg daily Metoprolol tartrate 37.5 mg daily Warfarin 3 mg daily Levothyroxine 88 Mcg daily Duloxetine 40 mg daily Alendronate 35 mg weekly Ipratropium bromide 13 ml spray PMH 1. CVA admitted 05/18/16-05/21/16 2. Paroxysmal atrial fibrillation on warfarin. 3. Hypertension 4. Peripheral neuropathy. 5. Hypothyroidism. 6. Osteoporosis. 7. Colon cancer status post colon resection 2 and chemotherapy. 8. Uterine cancer status post total abdominal hysterectomy. 9. Reports COPD Surgical History 1. Cholecystectomy. 2. Total abdominal hysterectomy (1960s). 3. Colon resection 2 (1998 and 2003). Family History Her mother and father of old age. She had 2 brothers and 2 sisters. Her brother had CHF. She has one sister who is alive but is unaware of her medical history. . Social History Hx Alcohol Use: Yes (wine occ) Hx Substance Use: No Hx Tobacco Use: Yes Smoking Status: Former Smoker Exam Vital Signs Vital Sign - Last Date Time Temp Pulse Resp B/P Pulse Ox O2 Delivery O2 Flow Rate FiO2 05/22/16 11:11 36.9 100 18 161/92 95 Room Air Exam General: Elderly female, awake, alert, in no acute distress, cooperative HEENT: Normocephalic, atraumatic. PERRL, EOMI. Anicteric sclerae, moist conjunctivae. Mucous membranes moist. Neck: Supple with decreased range of motion slightly to left. No jugular venous distension. No bruits. No lymphadenopathy or thyromegaly. Cardiovascular: Irregularly irregular with no murmurs, rubs, or gallops appreciated Pulmonary: Clear to auscultation bilaterally with no crackles, wheezes, or rhonchi. Normal respiratory effort with no use of accessory muscles. Abdomen: Soft, nontender, nondistended, bowel sounds present. No hepatosplenomegaly or masses appreciated. Extremities: No clubbing, cyanosis, or edema. Skin: Normal temperature, turgor, and texture; no rash, ulcers, or subcutaneous nodules appreciated. 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 Alert and oriented to person, place, and time. Lab and Diagnostics Result Diagram: 05/22/1674405/22/16744 X-Rays, CTs and MRIs PROCEDURE: CT BRAIN (TPA) IMPRESSION: Continued evolution of a right frontal/insular infarct. No evidence for hemorrhagic transformation. Note: The preliminary [facility] interpretation and the final report are concordant. This study fulfills neurological imaging criteria for inclusion or exclusion of acute stroke therapies based on available published neurological guidelines. Dictated by: Skylar Olvera M.D. on 05/22/2016 at 12:38 Approved by: Skylar Olvera M.D. on 05/22/2016 at 12:44 12-lead ECG ECG Interpretation: Rate controlled atrial fibrillation No additional changes Time: 07:20 Interpreted by: ED physician Assessment & Plan Geetha Emanuel is an 85-year-old female with a past medical history significant for paroxysmal atrial fibrillation, on warfarin, colon cancer status post colon resection 2 and chemotherapy and uterine cancer status post total abdominal hysterectomy and recent admission for acute CVA (05/18/16 - 05/21/16), who presented to [facility] ED with reoccurrence of left upper extremity weakness, slurred speech, and facial droop. She is readmitted for new CVA symptoms. Hospital day # 1. 1. Acute CVA (Capsal Warning Syndrome) This is an 85-year-old female who was just discharged yesterday following an admission for a stroke with left sided weakness went home yesterday. She has chronic atrial fibrillation, on warfarin. She woke up this morning with much worsening symptoms, severe left facial paralysis, newly slurred speech-both worse than on discharge. By the time of my evaluation of this patient, her left upper extremity weakness was improved, and she was able to use her left leg. - CT brain showed continued evolution of a right frontal/insular infarct. No evidence for hemorrhagic transformation. - NIHSS score of 3. Patient is not a TPA candidate as last known normal was last night prior to going to bed. She is still in atrial fibrillation, she is anticoagulated on warfarin with INR of 2.02. - Neuro checks, fall risk per cautions, and elevate head of the bed 30 or more , per stroke protocol. - Echocardiogram with bubble study and bilateral carotid Doppler Ultrasound done during recent hospitalization. At this time we will not repeat these studies and will await for neurology recommendations. - Ordered PT/OT/ST evaluations, pending. - Patient is nothing by mouth until swallow evaluation with speech therapy. - May use supplemental oxygen as needed. - Allow for permissive hypertension. - Continue to monitor closely on telemetry. - Consulted neurology, Dr. Thomas, recommendations pending. - Continue atorvastatin 40 mg daily. Chronic problems: 2. Paroxysmal atrial fibrillation, on anticoagulation with warfarin, chronic. Stable. - Patient's INR is therapeutic at 2.02. - Patient is rate controlled on metoprolol 37.5 a day. Held metoprolol for now for permissive hypertension. May reconsider starting if the patient has RVR. - Continue warfarin with dosing per pharmacist. 3. Hypothyroidism, chronic. Presumed stable. - Continue home dose of levothyroxine 88 g daily. 4. Peripheral neuropathy, chronic. Stable. - No longer medically treated. PRN antiemetics: Zofran and Maalox. PRN bowel regimen: Senna and MiraLAX. PRN analgesics: Tylenol. PRN antihypertensive: Labetalol IV. Patient is admitted under inpatient status with expected length of stay greater than 2 midnights due to severity of presenting symptoms, risk of adverse event, and complexity of treatment plan. VTE Prophylaxis: Sub-Q Heparin (Unfractionated) Resuscitation Status: CPR: Attempt Resuscitation Attending Statement The patient was seen and examined together with Dr. Ray on 05/22/16 and I have added additional information to the note above. copies to: ENIO DOWNS MD, Oksana S DO May 22, 2016 13:46 eMl Ramos DO May 22, 2016 16:20
--- NOTE | 2016-05-22 15:45 | NUR ---
Evaluation completed. Please go to "Notes" then click on "Assessments and Notes" (bottom left corner of screen). Then select appropriate discipline tab on top of screen.
[2016-05-23] VITALS (7 sets, daily range): BP systolic 131–172; BP diastolic 78–90; PULSE 64–104; RESP 16–18; O2SAT 97–99
[2016-05-23] MEDS: 0.9% Sodium Chloride 1,000 ML IV SCH ×4 (00:26→22:53)
--- NOTE | 2016-05-23 05:02 | NUR ---
Functionality Pt was able to stand on her own using FWW, ambulate to BR using FWW, and sit and stand from toilet independently at beginning of shift. Pt did drag her left foot and run her walker int corner of wall twice, but only required brief hands on course correction from this RN. Pt continues with facial droop, slurred speech, and weakness in left side as well as unequal author strength. This has remained unchanged over night.
[2016-05-23 06:58] LABS: BASOPHILS % (AUTO) 1.2 % (0-3); EOSINOPHILS % (AUTO) 2.3 % (0-5); MONOCYTES % (AUTO) 8.1 % (4-12); Mean Corpuscular Hemoglobin 30.4 pg (27.0-35.0); Mean Corpuscular Volume 92.1 fL (81-100); NEUTROPHILS % (AUTO) 65.3 % (40-74); Platelet Count 150 bil/L (150-400)
[2016-05-23 07:07] LABS: INR 3.16 ratio
[2016-05-23 09:11] LABS: INR 3.19 ratio
[2016-05-23] MEDS ORDERED: MeTOProlol XL 50 mg ER24 Tablet PO SCH (10:11)
--- NOTE | 2016-05-23 10:25 | PCM.PHAPRO ---
Progress Left-sided weakness Unexpected increase in inr with confirmatory redraw. Holding and will continue to follow. RP AK RTM RTM DFF RTM Date May 19May 20May 21May 22-Apr 25-May INR 2.03 2.24 2.36 2.07 2.02 3.16 INR change 0.21 0.12 -0.29 -0.05 1.14 Warf Dose 3 MG 3 MG 3 MG 3MG 3 MG hold Benito Cadet May 23, 2016 10:25
[2016-05-23] MEDS: MeTOProlol XL 25 mg ER24 Tablet PO SCH (12:20)
--- NOTE | 2016-05-23 13:26 | NUR ---
Social Work: Continued Discharge Planning: Data & assessment: SW notified UR specialist that PT and OT was recommending inpatient rehab and that the patient chose [facility] inpatient rehab. UR specialist will request authorization from [employer]. SW will continue to follow. Plan: Patient is likely to discharge to [facility] inpatient rehab in [place] if authorized by insurance. JER will continue to follow. Joanna Short LMSW, ACM Addendum: 05/23/16 at 1340 by JOANNA SHORT [employer] spoke with patient and patient's son about the plan for the patient after she discharges from inpatient rehab. Patient and patient's son reported that patient will return home with her son, Александр Mcfarland [phone], as her 24-hour caregiver. SW will continue to follow and assist patient with discharge planning needs. Joanna Short LMSW, ACM
--- NOTE | 2016-05-23 14:28 | PCM.PNMED ---
Subjective Date of Service May 23, 2016 Subjective Geetha Emanuel is an 85-year-old female with a past medical history significant for paroxysmal atrial fibrillation, colon cancer status post colon resection 2 and chemotherapy and uterine cancer status post total abdominal hysterectomy and recent hospitalization (05/18/16-05/21/16) for acute CVA, who presented to the [facility] ED with recurrence of left upper extremity weakness, facial droop, and slurred speech. Patient is readmitted for CVA management. Hospital day #2 No acute overnight events. Telemetry: A-fib mid 80's, V-paced. Patient reports some improvement in her symptoms: her facial droop has improved ; she still has slurred speech. Otherwise patient denies any other symptoms. Exam Vital Signs Vital Sign - Last Date Time Temp Pulse Resp B/P Pulse Ox O2 Delivery O2 Flow Rate FiO2 05/23/16 08:23 36.6 78 17 148/78 98 Room Air Intake and Output 05/22/16 05/22/16 05/23/16 Cumulative From/Thru 15:00 23:00 07:00 05/22/16 07:20 - 05/23/16 05:31 Intake Total 939 ml 1058 ml 1997 ml Output Total 750 ml 300 ml 1050 ml Balance 189 ml 758 ml 947 ml Intake Oral 450 ml 50 ml 500 ml IV Total 489 ml 1008 ml 1497 ml Output Urine Total 750 ml 300 ml 1050 ml # Voids 1 1 # Bowel Movements 0 0 0 Exam General: Elderly female, awake, alert, in no acute distress, cooperative HEENT: Normocephalic, atraumatic. Mucous membranes moist. Cardiovascular: Irregularly irregular with no murmurs, rubs, or gallops appreciated Pulmonary: Clear to auscultation bilaterally with no crackles, wheezes, or rhonchi. Abdomen: Soft, nontender, nondistended, bowel sounds present. Extremities: No clubbing, cyanosis, or edema. Lab and Diagnostics Result Diagram: 05/23/16 0640 05/23/16 0640 X-Rays, CTs and MRIs PROCEDURE: CT BRAIN (TPA) IMPRESSION: Continued evolution of a right frontal/insular infarct. No evidence for hemorrhagic transformation. Note: The preliminary [facility] interpretation and the final report are concordant. This study fulfills neurological imaging criteria for inclusion or exclusion of acute stroke therapies based on available published neurological guidelines. Dictated by: Skylar Olvera M.D. on 05/22/2016 at 12:38 Approved by: Skylar Olvera M.D. on 05/22/2016 at 12:44 12-lead ECG ECG Interpretation: Rate controlled atrial fibrillation No additional changes Time: 07:20 Interpreted by: ED physician Assessment & Plan Geetha Emanuel is an 85-year-old female with a past medical history significant for paroxysmal atrial fibrillation, on warfarin, colon cancer status post colon resection 2 and chemotherapy and uterine cancer status post total abdominal hysterectomy and recent admission for acute CVA (05/18/16 - 05/21/16), who presented to [facility] ED with reoccurrence of left upper extremity weakness, slurred speech, and facial droop. She is readmitted for new CVA symptoms. Hospital day # 2. 1. Acute CVA (Capsal Warning Syndrome) This is an 85-year-old female who was just discharged yesterday following an admission for a stroke with left sided weakness went home yesterday. She has chronic atrial fibrillation, on warfarin. She woke up on the day of readmission with much worsening symptoms, severe left facial paralysis, newly slurred speech -both worse than on discharge. By the time of my evaluation of this patient, her left upper extremity weakness was improved, and she was able to use her left leg. - CT brain showed continued evolution of a right frontal/insular infarct. No evidence for hemorrhagic transformation. - NIHSS score of 3. Patient is not a TPA candidate as last known normal was last night prior to going to bed. She is still in atrial fibrillation, she is anticoagulated on warfarin with INR of 3.16. (pharmacy will hold warfarin dose today). - Neuro checks, fall risk per cautions, and elevate head of the bed 30 or more , per stroke protocol. - Echocardiogram with bubble study and bilateral carotid Doppler Ultrasound done during recent hospitalization. At this time we will not repeat these studies and will await for neurology recommendations. - PT/OT/ST evaluations - May use supplemental oxygen as needed. - Start Losartan 25 mg for BP control. - Continue to monitor closely on telemetry (currently in A-fib). - Consulted neurology, Dr. Thomas, recommendations pending. - Continue atorvastatin 40 mg daily. Chronic problems: 2. Paroxysmal atrial fibrillation, on anticoagulation with warfarin, chronic. Stable. - Patient's INR is therapeutic at 3.16. - Patient is rate controlled on metoprolol 37.5 a day. Restart metoprolol. - Continue warfarin with dosing per pharmacist. 3. Hypothyroidism, chronic. Presumed stable. - Continue home dose of levothyroxine 88 g daily. 4. Peripheral neuropathy, chronic. Stable. - No longer medically treated. PRN antiemetics: Zofran and Maalox. PRN bowel regimen: Senna and MiraLAX. PRN analgesics: Tylenol. PRN antihypertensive: Labetalol IV. Patient is admitted under inpatient status with expected length of stay greater than 2 midnights due to severity of presenting symptoms, risk of adverse event, and complexity of treatment plan. Disposition: Inpatient rehab tomorrow. VTE Prophylaxis: Sub-Q Heparin (Unfractionated) Resuscitation Status: CPR: Attempt Resuscitation Attending Statement The patient was seen and examined together with Dr. Ray on 05/23/16 and I agree with the history, exam and plan as outlined in the note above. copies to: PAULINA FLOYD MD, Oksana S DO May 23, 2016 08:55 Mel Ramos DO May 25, 2016 14:41
--- NOTE | 2016-05-23 14:52 | NUR ---
Faxed referral to [facility] in [place] per [employer], patient will also need to have [facility] authorization for this. Updated [employer]
--- NOTE | 2016-05-23 15:25 | NUR ---
Social Work: Initial assessment: Data & Assessment:See initial assessment. EMR reviewed. Pt is a 85 y/o female who was admitted on 05/22/16 for stroke symptoms per H&P. SW met with patient and patient's son at bedside to discuss discharge planning, SW role explained, and Initial assessment complete. Patient's insurance is [employer] and patient's PCP is Enio Downs MD. Pt has no epic director care or VA benefits. Patient's re-admit score is high at 4. Pt is alert and oriented x3. Patient readmitted to the hospital after discharging on 05/21/15. Pt resides at home with her son Александр Mcfarland where she was independent with ADLs prior to last hospitalization. Pt drove and used a cane at baseline. Pt has no HH or SNF history. Patient was planning to go to [facility] for Outpatient Rehab. SW discussed DPOA/advanced directive, pt states she has completed this, SW encouraged patient to have a copy brought into the hospital. PT and OT both recommend Inpt rehab. SW discussed with patient and patient chose inpatient rehab at [facility] inpatient rehab. SW also explained pt would have to have 24/7 care at home to be able to go to in rehab. Pt states her son will be able to do this and patient's son confirmed that he will be able to also. sand control worker wrote contact information on white board in patient's room. SW will continue to follow. Plan: It is likely that patient will discharge to [facility] inpatient rehab if authorized by patient's insurance. UR specialist requested inpatient rehab authorization from [employer]. Patient's son to confirmed 24/7 care post inpt rehab from [facility] in rehab. SW will continue to follow. Joanna Short LMSW, PATRIC Addendum: 05/23/16 at 1528 by JOANNA SHORT Amended: Links added.
[2016-05-23 16:43] LABS: APPEARANCE,URINE CLEAR (CLEAR,HAZY); COLOR,URINE YELLOW (YELLOW); OCCULT BLOOD,URINE SMALL (NEGATIVE); UROBILINOGEN,URINE NORMAL (NORMAL)
[2016-05-24] VITALS (10 sets, daily range): BP systolic 131–182; BP diastolic 70–87; PULSE 59–91; RESP 16–20; O2SAT 95–98
--- NOTE | 2016-05-24 02:25 | NUR ---
Neuro Left sided facial droop present with left sided tongue deviation. Left hand moderately-severely weak compared to the right side. Patient is able to hold left arm out in front of her without drifting. Patients left leg is slightly weak compared to the right, but has the same amount of movement. No complaints of numbness or tingling. A&OX3. Continuing to do Q4 neuro checks.
[2016-05-24 06:58] LABS: BASOPHILS % (AUTO) 1.1 % (0-3); EOSINOPHILS % (AUTO) 3.1 % (0-5); MONOCYTES % (AUTO) 7.6 % (4-12); Mean Corpuscular Hemoglobin 30.5 pg (27.0-35.0); Mean Corpuscular Volume 91.8 fL (81-100); NEUTROPHILS % (AUTO) 66.2 % (40-74); Platelet Count 162 bil/L (150-400)
[2016-05-24] MEDS: MeTOProlol XL 25 mg ER24 Tablet PO SCH (07:51)
[2016-05-24] MEDS: DULoxetine 30 mg DR Capsule PO SCH (07:56)
[2016-05-24 08:02] LABS: INR 2.82 ratio
--- NOTE | 2016-05-24 08:28 | PCM.PHAPRO ---
Progress Left-sided weakness Date May 19May 20May 21May 22-Apr 25-May 24-May INR 2.03 2.24 2.36 2.07 2.02 3.16 2.82 INR change 0.21 0.12 -0.29 -0.05 1.14 -0.34 Warf Dose 3 MG 3 MG 3 MG 3MG 3 MG hold 2 Benito Cadet May 24, 2016 08:28
[2016-05-24] MEDS: 0.9% Sodium Chloride 1,000 ML IV SCH ×2 (09:15→22:02)
--- NOTE | 2016-05-24 10:11 | NUR ---
Spoke with Vilma at [facility] and she is starting the process with [facility] and will continue to work on reviewing patient and she will work on obtaining [facility] authorization if patient is appropriate. Updated TYPE PROOF REPRODUCER Addendum: 05/24/16 at 1523 by CHUN SHEPHERD CM Patient has been formally accepted and the request has been sent to the MD at [facility] for authorization or denial. updated TYPE PROOF REPRODUCER
--- NOTE | 2016-05-24 17:34 | PCM.PNMED ---
Subjective Date of Service May 24, 2016 Subjective Geetha Emanuel is an 85-year-old female with a past medical history significant for paroxysmal atrial fibrillation, colon cancer status post colon resection 2 and chemotherapy and uterine cancer status post total abdominal hysterectomy and recent hospitalization (05/18/16-05/21/16) for acute CVA, who presented to the [facility] ED with recurrence of left upper extremity weakness, facial droop, and slurred speech. Patient is readmitted for CVA management. Hospital day #3 No acute overnight events. Telemetry: A-fib mid 80's, V-paced. Patient reports some improvement in her symptoms: her facial droop has improved ; she still has slurred speech. Otherwise patient denies any other symptoms. Patient is working with PT daily basis and showing some improvement. Exam Vital Signs Vital Sign - Last Date Time Temp Pulse Resp B/P Pulse Ox O2 Delivery O2 Flow Rate FiO2 05/24/16 17:06 36.7 65 18 164/87 98 Room Air Intake and Output 05/23/16 05/23/16 05/24/16 Cumulative From/Thru 14:59 22:59 06:59 05/22/16 07:20 - 05/24/16 06:35 Intake Total 1036 ml 2428 ml 5461 ml Output Total 900 ml 650 ml 2600 ml Balance 136 ml 1778 ml 2861 ml Intake Oral 1036 ml 100 ml 1636 ml IV Total 2328 ml 3825 ml Output Urine Total 900 ml 650 ml 2600 ml # Voids 1 2 # Bowel Movements 0 0 Exam General: Elderly female, awake, alert, in no acute distress, cooperative HEENT: Normocephalic, atraumatic. Mucous membranes moist. Cardiovascular: Irregularly irregular with no murmurs, rubs, or gallops appreciated Pulmonary: Clear to auscultation bilaterally with no crackles, wheezes, or rhonchi. Abdomen: Soft, nontender, nondistended, bowel sounds present. Extremities: No clubbing, cyanosis, or edema. Neuro: Facial droop Left sided, no tongue deviation, left upper extremity weakness, slurred speech Lab and Diagnostics Result Diagram: 05/24/1615 05/24/16 0615 X-Rays, CTs and MRIs PROCEDURE: CT BRAIN (TPA) IMPRESSION: Continued evolution of a right frontal/insular infarct. No evidence for hemorrhagic transformation. Note: The preliminary [facility] interpretation and the final report are concordant. This study fulfills neurological imaging criteria for inclusion or exclusion of acute stroke therapies based on available published neurological guidelines. Dictated by: Skylar Olvera M.D. on 05/22/2016 at 12:38 Approved by: Skylar Olvera M.D. on 05/22/2016 at 12:44 12-lead ECG ECG Interpretation: Rate controlled atrial fibrillation No additional changes Time: 07:20 Interpreted by: ED physician Assessment & Plan Geetha Emanuel is an 85-year-old female with a past medical history significant for paroxysmal atrial fibrillation, on warfarin, colon cancer status post colon resection 2 and chemotherapy and uterine cancer status post total abdominal hysterectomy and recent admission for acute CVA (05/18/16 - 05/21/16), who presented to [facility] ED with reoccurrence of left upper extremity weakness, slurred speech, and facial droop. She is readmitted for new CVA symptoms. Hospital day # 3. 1. Acute CVA (Capsal Warning Syndrome) This is an 85-year-old female who was just discharged yesterday following an admission for a stroke with left sided weakness went home yesterday. She has chronic atrial fibrillation, on warfarin. She woke up on the day of readmission with much worsening symptoms, severe left facial paralysis, newly slurred speech -both worse than on discharge. By the time of my evaluation of this patient, her left upper extremity weakness was improved, and she was able to use her left leg. - CT brain showed continued evolution of a right frontal/insular infarct. No evidence for hemorrhagic transformation. - NIHSS score of 3. Patient is not a TPA candidate as last known normal was last night prior to going to bed. She is still in atrial fibrillation, she is anticoagulated on warfarin with INR of 2.82 (warfarin 2 mg per pharmacy today). - Neuro checks, fall risk per cautions, and elevate head of the bed 30 or more , per stroke protocol. - Echocardiogram with bubble study and bilateral carotid Doppler Ultrasound done during recent hospitalization. At this time we will not repeat these studies and will await for neurology recommendations. - PT/OT/ST evaluations - May use supplemental oxygen as needed. - Increase Losartan to 50 mg for better BP control. - Continue to monitor closely on telemetry (currently in A-fib). - Consulted neurology, Dr. Thomas, we appreciate the input. - Continue atorvastatin 40 mg daily. Chronic problems: 2. Paroxysmal atrial fibrillation, on anticoagulation with warfarin, chronic. Stable. - Patient's INR is therapeutic at 3.16. - Patient is rate controlled on metoprolol 37.5 a day. - Continue warfarin with dosing per pharmacist. 3. Hypothyroidism, chronic. Presumed stable. - Continue home dose of levothyroxine 88 g daily. 4. Peripheral neuropathy, chronic. Stable. - No longer medically treated. PRN antiemetics: Zofran and Maalox. PRN bowel regimen: Senna and MiraLAX. PRN analgesics: Tylenol. PRN antihypertensive: Labetalol IV. Patient is admitted under inpatient status with expected length of stay greater than 2 midnights due to severity of presenting symptoms, risk of adverse event, and complexity of treatment plan. Disposition: Patient is currently progressing well at this point patient is medically stable for inpatient rehabilitation. Awaiting insurance authorization for [facility]. Once authorization has been obtained the patient will be discharged to go to [facility]. VTE Prophylaxis: Sub-Q Heparin (Unfractionated) Resuscitation Status: CPR: Attempt Resuscitation Attending Statement The patient was seen and examined together with Dr. Ray on 05/24/16 and I have added additional information to the note above. Colette Ray DO May 24, 2016 17:34 Mel Ramos DO May 25, 2016 14:46
--- NOTE | 2016-05-24 22:32 | CONS ---
[address] [address] CONSULTATION REPORT PATIENT: CARLOS SHIPMAN : 1930 MR#: [id number] ADMIT: 05/22/2016 JOB ID: [id number] DATE OF SERVICE: 05/23/2016 CHIEF COMPLAINT: Worsening left-sided weakness. HISTORY OF PRESENTING ILLNESS: The patient is a very pleasant 85-year-old woman with multiple medical problems who was recently admitted and diagnosed with a stroke. She was noted to have worsening of symptoms and came back into the emergency department. A CT of her head was performed demonstrating continued evolution of a right frontal/insular infarct. No evidence of hemorrhagic transformation. So far, since being readmitted on May 22, 2016, the patient has noted improvement in her symptoms. As you will recall from the prior admission, she does have a past medical history of paroxysmal atrial fibrillation, colon cancer, status post colon resection x2 and chemotherapy, as well as a history of uterine cancer status post total abdominal hysterectomy. She had been discharged on May 21, 2016, however, noted worsening left upper extremity weakness, left facial droop and slurred speech. She awoke approximately around midnight noticing worsening symptoms. She also felt greater weakness on her left side involving her left leg and had difficulty walking. Her son noted the symptoms around five o'clock in the morning and took her to the emergency department. She was noted to have more prominent slurred speech. She also noted lightheadedness and left facial droop. She did not note any headache, visual changes or other neurologic symptoms. Blood pressures were elevated 171/95. She was given 1 L of normal saline. Her primary care provider is Dr. Downs in [place]. REVIEW OF SYSTEMS: A complete review of systems was performed and was unremarkable other than above noted. ALLERGIES: CIPROFLOXACIN. HOME MEDICATIONS: Are the medications that she was on at the time of discharge: 1. Alendronate. 2. Atorvastatin. 3. Duloxetine. 4. Ipratropium bromide. 5. Levothyroxine. 6. Metoprolol. 7. Warfarin. At that time, my concern was that her stroke was secondary to hypertension. PAST MEDICAL HISTORY: As above noted: 1. Recent stroke. 2. Paroxysmal atrial fibrillation, on warfarin. 3. Hypertension. 4. Peripheral neuropathy. 5. Hypothyroidism. 6. Osteoporosis. 7. Colon cancer, status post colon resection x2 and chemotherapy. 8. Uterine cancer, status post total abdominal hysterectomy. 9. History of chronic obstructive pulmonary disease. PAST SURGICAL HISTORY: 1. Status post cholecystectomy. 2. Status post total abdominal hysterectomy. 3. Status post colon resection x2. FAMILY HISTORY: No neurologic disorders. SOCIAL HISTORY: Occasional wine. No tobacco, alcohol or drugs other than occasional wine. LABORATORY STUDIES: WBC of 7.9, hemoglobin 14.5, hematocrit 43.3, and platelets of 167. Sodium 140, potassium 4.2, chloride was 103, bicarb was 25, BUN 19, creatinine was 0.57, glucose was 106. EKG rate controlled atrial fibrillation. PHYSICAL EXAMINATION: Temperature 36.6, pulse of 66, respiratory rate of 17, blood pressure 143/87, pulse oximetry 97% on room air. General: She is a well-developed, well-nourished woman in no acute distress. Head: Normocephalic, atraumatic. Neck is supple. No carotid bruits were auscultated. Negative Kernig. Negative Brudzinski. Chest: Clear to auscultation. Heart: Rate at times are irregularly irregular. No murmurs, rubs or gallops were noted. Abdomen: Soft, nondistended, nontender. Bowel sounds positive. Extremities: No cyanosis, clubbing, or edema. NEUROLOGIC EXAMINATION: Mental status: She is awake, alert, oriented x3. Speech is mildly dysarthric. No aphasia. Mild degree of left-sided neglect. Cranial nerves: Pupils equal, round, reactive to light. Extraocular movements were smooth and conjugate with no evidence of nystagmus. Face appeared symmetrical. Facial sensation was intact to light touch and temperature. There was an upper motor neuron type cranial nerve 7 palsy with flattening of left nasolabial fold. Auditory sensation was intact to finger rub. Palatal elevation was symmetrical. Mild degree of tongue deviation to the left. Sternocleidomastoid and trapezii are 5/5 bilaterally. The left-sided neglect appeared to be less pronounced. Left upper extremity 5-, left lower extremity 5. Coordination: [id number] was intact on the right. Mild degree of dysmetria on the left proportionate to the degree of weakness. Sensation intact to light touch and temperature throughout. Deep tendon reflexes were 1+ in the upper extremities, 2+ at the patella bilaterally, and 1+ at the Achilles bilaterally. Plantars were equivocal bilaterally. Gait was deferred. IMPRESSION: Cerebrovascular accident. My suspicion is that she does have waxing and waning symptoms more suggestive of capsular warning syndrome as seen in the setting of a lacunar infarct. She does have what appears to be a lacunar infarct involving the left insula/powell radiata. RECOMMENDATIONS: Continued optimization of control of her stroke risk factors. My suspicion is that her stroke may have been secondary to underlying stroke risk factors, including hypertension. Her coags were INR of 2.02. She would also benefit from inpatient rehabilitation. Recommend evaluation by physical therapy/occupational therapy. Continue stroke protocol. Thank you, again, for allowing me to participate in the care of your patient, Dr. Ramos and Dr. Ray. Please feel free to contact me with any questions or concerns. Will continue to follow.
--- NOTE | 2016-05-24 22:44 | PROG NOTE ---
[address] [address] PROGRESS NOTE PATIENT: CARLOS SHIPMAN : 1930 MR#: [id number] ADMIT: 05/22/2016 JOB ID: [id number] DATE: 05/24/2016 SUBJECTIVE: Reports that she feels continued improvement in her symptoms. She notes that her left facial droop has improved and also she does have continued slurred speech, It is improved. She has been working with physical therapy. Blood pressures are still mildly elevated. She has not noted any other new neurologic symptoms. PHYSICAL EXAMINATION: Vital signs: Temperature 36.7, pulse of 65, respiratory rate of 18, blood pressure 164/87, and a pulse oximetry of 98% on room air. General: She is a well-developed, well-nourished woman in no acute distress. Head: Normocephalic, atraumatic. Neck is supple. No carotid bruits were auscultated. Negative Kernig. Negative Brudzinski. Chest: Clear to auscultation. Heart: Irregularly irregular, however, ventricular paced with a pacemaker in place. No murmurs, rubs or gallops were noted. Abdomen: Soft, nondistended, nontender. Bowel sounds positive. Extremities: No cyanosis, clubbing, or edema. Neurologic examination: Mental status: She is awake, alert, oriented x3. Speech continues to be dysarthric, however, it is more intelligible today. There is no aphasia and the left-sided neglect appears improved. Cranial nerves: Pupils equal, round, reactive to light. Extraocular movements were smooth and conjugate with no evidence of nystagmus. Face appeared asymmetrical with an upper motor neuron type cranial nerve 7 palsy with flattening of left nasolabial fold. However, did appear improved today when compared to yesterday. Facial sensation was intact to light touch and temperature. Auditory sensation was intact to finger rub. Palatal elevation was symmetrical. Very mild degree of tongue deviation to the left. Sternocleidomastoid and trapezii are 5/5 bilaterally. Motor examination: Trace weakness of the left upper extremity, otherwise 5/5 throughout. Coordination: Dasjoe-ho-eqnd was intact on the right. There was a very mild degree of dysmetria on the left proportionate to the mild degree of weakness, I would say trace to 5- in the left upper extremity. Sensation was intact to light touch and temperature throughout. Deep tendon reflexes were 1+ in the upper extremities, 2+ at the patella, and 1+ at the Achilles bilaterally. Plantars were equivocal bilaterally. Gait was deferred. IMPRESSION: Cerebrovascular accident secondary to lacunar infarct left insula/powell radiata. PLAN: Continue in physical therapy/occupational therapy. Continue stroke protocol. If there are any new neurologic symptoms I would repeat a CT of the head without contrast to exclude the possibility of a new stroke or hemorrhagic transformation. However, the patient does appear instead to be improving. National Institutes of Health Stroke Scale 3. She would also benefit from speech therapy and does continue to have hypertension. My suspicion is that her stroke was secondary to hypertension. Continue close monitoring. Continue to optimize control of stroke risk factors including hypertension and hyperlipidemia. She does have paroxysmal atrial fibrillation and is anticoagulated with warfarin, which is therapeutic, rate controlled with metoprolol. Her hypothyroidism is stable. I do recommend that she continue inpatient physical therapy/occupational therapy for recovery from her stroke. We will continue to follow. Thank you, again, Dr. Ray and Dr. Ramos, for allowing me to participate in care of your patient. Please feel free to contact me with any questions or concerns. Continue stroke protocol. Continue to optimize control of stroke risk factors.
[2016-05-25 00:21] VITALS: BP 154/85; PULSE 88; RESP 18; O2SAT 95
--- NOTE | 2016-05-25 05:03 | NUR ---
Mobility Pt remains able to stand and ambulate with minimal assistance. Pt using FWW to go to BR and BSC at times. Pt independent with arnol care and is able reposition her self in bed independent as well.
[2016-05-25 05:22] VITALS: BP 153/82; PULSE 66; RESP 18; O2SAT 96
[2016-05-25 06:36] LABS: BASOPHILS % (AUTO) 0.9 % (0-3); EOSINOPHILS % (AUTO) 2.7 % (0-5); MONOCYTES % (AUTO) 7.7 % (4-12); Mean Corpuscular Volume 91.6 fL (81-100); NEUTROPHILS % (AUTO) 69.8 % (40-74); Platelet Count 166 bil/L (150-400)
[2016-05-25 06:53] LABS: INR 2.34 ratio
[2016-05-25] MEDS: DULoxetine 30 mg DR Capsule PO SCH (07:52)
[2016-05-25 08:00] VITALS: PULSE 83
[2016-05-25 09:32] VITALS: BP 138/78; PULSE 69; RESP 16; O2SAT 96
[2016-05-25] MEDS: MeTOProlol XL 25 mg ER24 Tablet PO SCH (09:59)
--- NOTE | 2016-05-25 12:57 | NUR ---
Gina Crews CM from [facility] has called and patient has been denied for Inpatient Rehab but approved for SNF, Gina spoke with patient and patient is stating she would like to go to SNF. Updated KIOSK SALES REPRESENTATIVE
[2016-05-25 13:38] VITALS: BP 148/77; PULSE 76; RESP 20; O2SAT 95
--- NOTE | 2016-05-25 14:08 | NUR ---
Social Work: Continued d/c planning Data: Pt is on day 3 of hospitalization. EMR reviewed. [employer] has denied inpt rehab for pt but has approved SNF. DISTRICT ATTORNEY met with pt who states she would like referrals sent to her first choice [facility] and her second choice [facility]. DISTRICT ATTORNEY notified UR specialist to refer pt. DISTRICT ATTORNEY will continue to follow. Assessment: Pt who is independent at baseline. Plan: Pt will d/c likely to SNF today, pt referred to both first choice [facility] and her second choice [facility]. DISTRICT ATTORNEY will continue to follow. AVRIL Patricio
--- NOTE | 2016-05-25 14:49 | NUR ---
Faxed referral to [facility] and [facility] per [facility] can accept today
--- NOTE | 2016-05-25 15:18 | PCM.DIMED ---
Colette Ray DO 05/25/16 1518: Discharge Instructions Date of Service May 25, 2016 Dates of Hospitalization May 22, 2016 at 09:15 Discharge Diagnosis Discharge Diagnosis 1. Acute CVA (Capsal Warning Syndrome), present on admission, resolving 2. Paroxysmal atrial fibrillation, on anticoagulation with warfarin, chronic. Stable. 3. Hypothyroidism, chronic. Presumed stable. 4. Peripheral neuropathy, chronic. Stable. Medication Instructions 1. Please continue taking losartan 50 mg daily for better blood pressure control. 2. Please continue atorvastatin 40 mg daily for hyperlipidemia 2. For your paroxysmal atrial fibrillation, continue warfarin and metoprolol. Test Results PROCEDURE: CT BRAIN (TPA) ([id number]) INDICATIONS: Stroke IMPRESSION: Continued evolution of a right frontal/insular infarct. No evidence for hemorrhagic transformation. Note: The preliminary [facility] interpretation and the final report are concordant. This study fulfills neurological imaging criteria for inclusion or exclusion of acute stroke therapies based on available published neurological guidelines. Dictated by: Skylar Olvera M.D. on 05/22/2016 at 12:38 Approved by: Skylar Olvera M.D. on 05/22/2016 at 12:44 Diet Heart Healthy Activity Home Health Phyical Therapy Call your provider Fever or Chills, Shortness of breath, Bleeding, Chest pain, Vomitting, Excessive diarrhea, Weakness (unilateral) Patient Instructions 1. Please follow up with her primary care provider within one to weeks. 2. Continue in physical therapy/occupational therapy/speech therapy. Follow-up Provider: PAULINA FLOYD MD Follow-up with PCP in: 1 week Mel Ramos DO 06/07/16 1732: Discharge Instructions Attending's Statement The patient was seen and examined together with Dr. Ray on 05/25/16 and I agree with the history, exam and plan as outlined in the note above. Colette Ray DO May 25, 2016 15:18 Mel Ramos DO Jun 07, 2016 17:32
[2016-05-25] MEDS ORDERED: LOSA50TA37 PO (15:19)
--- NOTE | 2016-05-25 15:32 | PCM.DC.MED ---
Discharge Summary Date of Service May 25, 2016 Dates of Hospitalization Date of Hospital Admission May 22, 2016 at 09:15 Date of Discharge: May 25, 2016 Providers: Admitting Physician: Mel Ramos DO Primary Care Physician: Enio Downs MD Attending Physician: Mel Ramos DO Diagnosis at Time of Discharge Diagnosis at Time of Discharge 1. Acute CVA (Capsal Warning Syndrome), present on admission, resolving 2. Paroxysmal atrial fibrillation, on anticoagulation with warfarin, chronic. Stable. 3. Hypothyroidism, chronic. Presumed stable. 4. Peripheral neuropathy, chronic. Stable. Consultations Neurology, Dr. Thomas Procedures XRay, CTs & MRIs PROCEDURE: CT BRAIN (TPA) IMPRESSION: Continued evolution of a right frontal/insular infarct. No evidence for hemorrhagic transformation. Note: The preliminary [facility] interpretation and the final report are concordant. This study fulfills neurological imaging criteria for inclusion or exclusion of acute stroke therapies based on available published neurological guidelines. Dictated by: Skylar Olvera M.D. on 05/22/2016 at 12:38 Approved by: Skylar Olvera M.D. on 05/22/2016 at 12:44 ECG 12 Lead ECG Interpretation: Rate controlled atrial fibrillation No additional changes Time: 07:20 Interpreted by: ED physician Brief History Per Admitting Physician: Mel Ramos DO: Geteha Emanuel is an 85-year-old female with a past medical history significant for paroxysmal atrial fibrillation, colon cancer status post colon resection 2 and chemotherapy and uterine cancer status post total abdominal hysterectomy and recent hospitalization (05/18/16-05/21/16) for acute CVA, who presented to the [facility] ED with recurrence of left upper extremity weakness, facial droop, and slurred speech. Patient states she woke up with stroke symptoms around midnight. She reports that when she awoke she could not walk as she was weak on her left side. Her son noticed the symptoms around 5 AM in the morning and took her to the emergency department. At that time patient was having difficulty with speaking and her words were slurred. She had accompanying lightheadedness and left-sided facial droop. She denies headache, vision changes, facial numbness or tingling, chest pain, shortness of breath, palpitations, abdominal pain, nausea, vomiting, dysuria, bowel or bladder incontinence. She has no other complaints at this time. Vital signs in the ER: Temperature 36.7. Pulse 89. Respiratory rate 18. Blood pressure 171/95. Pulse ox 98% on room air. She was given 1 L NS. Her PCP is Dr. Downs in [place]. Hospital Course Geetha Emanuel is an 85-year-old female with a past medical history significant for paroxysmal atrial fibrillation, on warfarin, colon cancer status post colon resection 2 and chemotherapy and uterine cancer status post total abdominal hysterectomy and recent admission for acute CVA (05/18/16 - 05/21/16), who presented to [facility] ED with reoccurrence of left upper extremity weakness, slurred speech, and facial droop. She is readmitted for new CVA symptoms. Patient has been discharged on hospital day #4. 1. Acute CVA (Capsal Warning Syndrome), present on admission, resolving This is an 85-year-old female who was just discharged a few days ago following an admission for a stroke with left sided weakness went home yesterday. She has chronic atrial fibrillation, on warfarin. She woke up on the day of readmission with much worsening symptoms, severe left facial paralysis, newly slurred speech-both worse than on discharge. - CT brain showed continued evolution of a right frontal/insular infarct. No evidence for hemorrhagic transformation. Neurology, Dr. Thomas consulted, appreciate his input. - NIHSS score of 3. Patient was not a TPA candidate as last known normal was last night prior to going to bed. At the time of discharge she continued to be in atrial fibrillation, she is anticoagulated on warfarin with INR of 2.34 as of the day of discharge. - Started on losartan 50 mg daily for better blood pressure control. - Continued with atorvastatin 40 mg daily. 2. Paroxysmal atrial fibrillation, on anticoagulation with warfarin, chronic. Stable. - Patient is rate controlled on metoprolol 37.5 a day. - Continue warfarin with dosing per pharmacist. 3. Hypothyroidism, chronic. Presumed stable. - Continue home dose of levothyroxine 88 g daily. 4. Peripheral neuropathy, chronic. Stable. - No longer medically treated. Exam Vital Signs (Last) Date Time Temp Pulse Resp B/P Pulse Ox O2 Delivery O2 Flow Rate FiO2 05/25/16 13:38 36.5 76 20 148/77 95 Room Air Exam General: Elderly female, awake, alert, in no acute distress, cooperative HEENT: Normocephalic, atraumatic. Mucous membranes moist. Cardiovascular: Irregularly irregular with no murmurs, rubs, or gallops appreciated Pulmonary: Clear to auscultation bilaterally with no crackles, wheezes, or rhonchi. Abdomen: Soft, nontender, nondistended, bowel sounds present. Extremities: No clubbing, cyanosis, or edema. Neuro: Facial droop Left sided, no tongue deviation, left upper extremity weakness, slurred speech Test 05/22/16 07:45 05/23/16 16:27 05/25/16 06:00 Activated Partial Thromboplast Time 30.9sec (22.8-33.0) Magnesium Level 2.0mg/dL (1.6-2.6) Troponin T < 0.010ug/L (0.0-0.011) Hold [place] Top Tube Received (Received) Urine Color Yellow (YELLOW) Urine Appearance Clear (CLEAR,HAZY) Urine pH 6.0 (5.0-8.0) Urine Specific [place] 1.010 (1.003-1.035) Urine Protein Negativemg/dL (NEG,TRACE) Urine Glucose (UA) Negativemg/dL (NEGATIVE) Urine Ketones Negativemg/dL (NEGATIVE) Urine Occult Blood Small (NEGATIVE) Urine Nitrite Negative (NEGATIVE) Urine Bilirubin Negative (NEGATIVE) Urine Urobilinogen Normalmg/dL (NORMAL) Urine Leukocyte Esterase Moderate (NEGATIVE) Urine RBC 0-2/hpf (0-2) Urine WBC 6-10/hpf (0-5) Urine Epithelial Cells Few/hpf (NONE-MOD) Urine Crystals None seen (NONE SEEN) Urine Bacteria Moderate/hpf (NONE-FEW) Urine Hyaline Casts None/lpf (NONE) Urine Granular Casts None seen (NONE SEEN) Urine Waxy Casts None seen (NONE SEEN) Urine Red Blood Cell Casts None seen (NONE SEEN) Urine White Blood Cell Casts None seen (NONE SEEN) Urine Mucus None seen (None Seen) Urine Trichomonas None seen (NONE SEEN) Urine Yeast None (NONE SEEN) Urinalysis Comment None Urine Culture Reflexed Indicated White Blood Count 5.9th/mm3 (3.8-10.1) Red Blood Count 4.63mil/mm3 (3.90-5.20) Hemoglobin 13.9g/dL (12.0-15.6) Hematocrit 42.4% (35.0-46.0) Mean Corpuscular Volume 91.6fL (81-100) Mean Corpuscular Hemoglobin 30.0pg (27.0-35.0) Mean Corpuscular Hemoglobin Concent 32.8% (32.0-37.0) Red Cell Distribution Width 14.8% (12.3-15.4) Platelet Count 166bil/L (150-400) Neutrophils (%) (Auto) 69.8% (40-74) Lymphocytes (%) (Auto) 18.7% (14-46) Monocytes (%) (Auto) 7.7% (4-12) Eosinophils (%) (Auto) 2.7% (0-5) Basophils (%) (Auto) 0.9% (0-3) Prothrombin Time 25.5sec (8.1-12.5) Prothromb Time International Ratio 2.34ratio Sodium Level 140mEq/L (134-144) Potassium Level 3.8mEq/L (3.5-5.2) Chloride Level 103mEq/L (97-108) Carbon Dioxide Level 24mmol/L (18-29) Blood Urea Nitrogen 11mg/dL (8-27) Creatinine 0.57mg/dL (0.57-1.00) Estimat Glomerular Filtration Rate 145mL/min (>59) Glucose Level 87mg/dL (60-99) Calcium Level 8.4mg/dL (8.5-10.1) Total Bilirubin 0.9mg/dL (0.0-1.2) Aspartate Amino Transf (AST/SGOT) 31U/L (0-50) Alanine Aminotransferase (ALT/SGPT) 21U/L (0-32) Alkaline Phosphatase 45U/L (25-165) Total Protein 5.4g/dL (6.4-8.4) Albumin 3.8g/dL (3.4-5.0) Discharge Medications Discharge Medications Scopolamine (Transderm-Scop) 1 Each Patch.td72 1 EACH TD Q72D Prescribed by: DELVIS KUMAR DO As needed Atropine 1% Ophthalmic Drops (Atropine 1% Ophthalmic Drops) 1 % Drops 2 DROP PO Q4H PRN PRN Secretion Control Prescribed by: DELVIS KUMAR DO Haloperidol Lactate (Haloperidol Lactate) 2 Mg/1 Ml Oral.conc 0.5-2 MG PO Q3H PRN PRN For Agitation Prescribed by: DELVIS KUMAR, Lorazepam (Lorazepam Oral Concentrate) 2 Mg/1 Ml Oral.conc 0.25-2 MG PO Q2H PRN PRN For Anxiety Prescribed by: DELVIS KUMAR DO Morphine Sulfate Oral Soln (Morphine Sulfate Oral Soln) 20 Mg/5 Ml Solution 5- 20 MG PO Q1H PRN PRN For Pain Prescribed by: DELVIS KUMAR, DO Additional med instructions 1. Please continue taking losartan 50 mg daily for better blood pressure control. 2. Please continue atorvastatin 40 mg daily for hyperlipidemia 2. For your paroxysmal atrial fibrillation, continue warfarin and metoprolol. Followup Plan Discharge Diet: Heart Healthy Discharge Activity: Home Health Phyical Therapy Patient Instructions 1. Please follow up with her primary care provider within one to weeks. 2. Continue in physical therapy/occupational therapy/speech therapy. Follow-up Provider: ENIO DOWNS MD Follow-up with PCP in: 1 week Attending Statement The patient was seen and examined together with Dr. Ray on 05/25/16 and I agree with the history, exam and plan as outlined in the note above. copies to: ENIO DOWNS MD, Oksana S DO May 25, 2016 15:32 Mel Ramos DO Jun 07, 2016 17:35
--- NOTE | 2016-05-25 15:47 | NUR ---
Social Work: Discharge Data: Pt is on day 3 of hospitalization. EMR reviewed. D/C orders are in. UR specialist notified SNF and set up transportation for 4:30pm. RESTAURANT ASSOCIATE notified RN, UA, pt, and MD. No further d/c planning needs at this time. RESTAURANT ASSOCIATE will continue to follow if needs arise. Assessment: Pt who is independent at baseline. Plan: Pt will d/c to [facility] at 4:30pm today. No further d/c planning needs at this time. RESTAURANT ASSOCIATE will continue to follow if needs arise. AVRIL Patricio
--- NOTE | 2016-05-25 16:40 | NUR ---
Transfer Pt transferred to [facility]. IV D/Cd intact. All belongings gathered and returned to pt. VSS, no complains of increased pain. Pt taken from [facility] in wheelchair by local bulk driver, to be transported in SNF transportation. Addendum: 05/25/16 at 1741 by RICHARD STORY RN Report called to Mirna
== END 2016-05-25 16:56 | DRG 65 ==
LOC: SED 07:03 → OBSVTOIN 09:15 → MPC 09:15
PROVIDERS: ADMIT Neuromusculoskeletal Medicine & OMM; ATTEND Neuromusculoskeletal Medicine & OMM
DX: I63.8 Other cerebral infarction (principal); G81.94 Hemiplegia, unspecified affecting left nondominant side; R29.810 Facial weakness; I48.0 Paroxysmal atrial fibrillation; E03.9 Hypothyroidism, unspecified; J44.9 Chronic obstructive pulmonary disease, unspecified; Z79.01 Long term (current) use of anticoagulants; Z87.891 Personal history of nicotine dependence; I10 Essential (primary) hypertension

== ENCOUNTER 2016-06-01 12:17 | Inpatient (IN) | payer MEDICARE ==
[~2016-06-01 12:17] MED LIST changes: +LOSA50TA37 PO
[2016-06-01 12:30] VITALS: BP 97/44; PULSE 62; RESP 19; O2SAT 100
[2016-06-01] MEDS ORDERED: 0.9% Sodium Chloride 1,000 ML IV ONE (12:34)
--- NOTE | 2016-06-01 12:36 | ED.REPORT ---
HPI-General Illness Date of Service Jun 01, 2016 ED Provider: Александр Shafer DO The patient is an 85-year-old female with a past medical history significant for paroxysmal atrial fibrillation, on warfarin, colon cancer status post colon resection x2 and chemotherapy and uterine cancer status post total abdominal hysterectomy and recent admission for acute CVA (05/18/16 - 05/21/16) causing left hemiplegia who presents to the ED via EMS from [facility] due to complaints of severe back pain. Caretakers report the pt has been nauseous, vomiting, and SOB for the past day. She was admitted to [facility] for a stroke one week ago (05/25/16) and has resultant left sided weakness. Per medics, she was initially verbally responsive en route and reported back pain and malaise. However, upon arrival at the ED she is unresponsive. SPO2 en route is in the 80s and systolic pressure on arrival is 60. She is able to squeeze her right hand and wiggle her right toes on the right only. She is on Coumadin. EMS report is that patient is a full CODE STATUS, confirmed with [id number]. Pt codes soon after arrival. Please see paper chart for code documentation. Unable to reach her son which is the only contact family member that Mallorie Cee has and that we have. Police sent to son's house for welfare check. Nursing Notes Stated Complaint: SOB Nursing Notes Reviewed: Yes Allergies: Coded Allergies: ciprofloxacin (Verified Allergy, Intermediate, rash, 05/18/16) Scheduled Scopolamine (Transderm-Scop) 1 Each Patch.td72 1 EACH TD Q72D Scheduled PRN Atropine 1% Ophthalmic Drops (Atropine 1% Ophthalmic Drops) 1 % Drops 2 DROP PO Q4H PRN PRN Secretion Control Haloperidol Lactate (Haloperidol Lactate) 2 Mg/1 Ml Oral.conc 0.5-2 MG PO Q3H PRN PRN For Agitation Lorazepam (Lorazepam Oral Concentrate) 2 Mg/1 Ml Oral.conc 0.25-2 MG PO Q2H PRN PRN For Anxiety Morphine Sulfate Oral Soln (Morphine Sulfate Oral Soln) 20 Mg/5 Ml Solution 5- 20 MG PO Q1H PRN PRN For Pain General Time Seen by MD: 12:36 Chief Complaint Back pain Hx Obtained From: EMS Arrived By: Ambulance Sudden in Onset?: Yes Onset Occurred: Just prior to arrival Symptom Duration: Since onset Recent Healthcare: Recent doctor visit, Recent hospitalization, Previous surgery Similar Sx Previous: Yes Past Medical History Past Medical History Notes: Patient admitted for CVA May 182016 Past Medical History Colon and uterine cancer CVA Admit 05/18- HTN Mild hypothyroidism Atrial Fibrillation on Warfarin Reports: COPD Past Surgical History Reports: Cholecystectomy, Hysterectomy Family History Noncontributory Smoking History Former Smoker Social History Other Social History: Good social support, Local resident Ambulatory Status Independent Review of Systems Unable to Obtain ROS Patient condition Physical Exam Vital Signs Initial VS: Reviewed ENT: Mucous membranes moist, Conjunctiva normal, No scleral icterus Neck: Supple, Non-tender, Full range of motion Abdomen / GI: Soft, Non-tender, No guarding, No rebound, No distention Back: No CVA tenderness Extremities: Vascular intact, No swelling, No tenderness Alertness: Positive: Unresponsive following commands- squeezing w/ right hand but not left hand wiggling toes on right side but minimal movement on left left sided weakness admitted for stroke 05/25/16 shallow breaths Head / Eyes: Normocephalic, PERRL (but sluggish ) Heart Rate / Rhythm: Positive: Tachycardia Interpretation & Diagnostics Interpretation & Diagnostics: CT Chest Abd with Contrast: IMPRESSION: Severely decreased cardiac output, with prominent reflux of IV contrast into the IVC, hepatic veins and right posterior segment of the liver. This likely accounts for the intraluminal irregular flow artifact the appearance of the aortic arch. No definite aortic dissection identified. Bilateral [id number] pleural effusions, right greater than left. Acute right second-sixth rib fractures. Bibasilar dependent consolidation presumably aspiration and/or pneumonia. Please correlate clinically. Mild cardiomegaly. Cholelithiasis. Bilateral low-density renal lesions presumably small cysts although technically indeterminate. Superior mesentery artery not well-visualized and may be occluded although this finding is technically age indeterminate. Findings are personally discussed by telephone with Dr. Shafer in the emergency Department 06/01/16 1400 hours Dictated by: Álvaro oTrres M.D. on 06/01/2016 at 13:43 Approved by: Álvaro Torres M.D. on 06/01/2016 at 14:52 Lab Results Interpretation Test 06/01/16 12:34 06/01/16 13:10 White Blood Count 19.8th/mm3 (3.8-10.1) Red Blood Count 5.16mil/mm3 (3.90-5.20) Hemoglobin 15.7g/dL (12.0-15.6) Hematocrit 48.9% (35.0-46.0) Mean Corpuscular Volume 94.8fL (81-100) Mean Corpuscular Hemoglobin 30.4pg (27.0-35.0) Mean Corpuscular Hemoglobin Concent 32.1% (32.0-37.0) Red Cell Distribution Width 15.0% (12.3-15.4) Platelet Count 160bil/L (150-400) Neutrophils (%) (Auto) 44% (40-74) Lymphocytes (%) (Auto) 41% (14-46) Monocytes (%) (Auto) 11% (4-12) Eosinophils (%) (Auto) 0% (0-5) Basophils (%) (Auto) 0% (0-3) Band Neutrophils % 2% (1-5) Metamyelocytes % 0% (0-0) Myelocytes % 2% (0-0) Prothrombin Time 19.7sec (8.1-12.5) Prothromb Time International Ratio 1.82ratio Activated Partial Thromboplast Time 53.8sec (22.8-33.0) ECG Interpretation ECG Interpretation: Diffuse ST depression Consistent w/ ischemia New when compared to 05/22/16 Time: 12:59 Interpreted by: ED physician Rhythm / Conduction: Tachycardia (105) ECG Interpretation: Atrial fibrillation with a rate of [address]- T abnormalities are less prominent Time: 13:59 X-Ray Chest Interpretation Chest Xray Interpretation: MPRESSION: Endotracheal tube with the tip seen approximately 4 cm above the kasandra. Patchy mild bibasilar opacities presumably aspiration/atelectasis. Dictated by: Álvaro Torres M.D. on 06/01/2016 at 14:12 Approved by: Álvaro Torres M.D. on 06/01/2016 at 14:15 View: Portable Interpretation / Wet Read by: Interpret - Radiologist CT Head Interpretation IMPRESSION: No acute intracranial abnormality. Dictated by: Katelyn Quezada M.D. on 06/01/2016 at 13:39 Approved by: Katelyn Quezada M.D. on 06/01/2016 at 13:40 Study: Head CT no contrast Interpretation / Wet Read by: Interpret - Radiologist Re-Eval/Medical Decision Med Decision/Clinical Course 85-year-old female with recent CVA causing left-sided hemiparesis, admitted here approximately one week ago presents from custodial with nausea, vomiting , and pain in her whole body. EMS reported that she had decreasing level of consciousness during her transportation here and only complained of back pain. Upon arrival her breaths were shallow and she was nonverbal, however she responded to commands squeezing my hand with her right arm and moving her feet on the right side. Patient was unable to use the left side which is consistent with her stroke. Given her change in level of consciousness I elected to CT scan her immediately to rule out stroke or head bleed. Nurse noted that she was not breathing and had no pulse shortly after that and CODE BLUE was started. We coded her for approximately 20 minutes, 3 doses of epinephrine were given. Patient was intubated with a 7.0 ET tube without difficulty using glides scope. Peripheral oximetry difficult as patient had cold and blue extremities. tube placement was confirmed with breath sounds bilaterally and color change. During compressions a femoral pulse was palpated but was nonpalpable during rhythm checks. Her code rhythm was PEA for the entire duration. Since arriving at the hospital we have made extensive attempts to reach family members to confirm the CODE STATUS. The custodial is unable to reach them, our nephrology social worker is unable to reach them, and police have been sent to the house of her son to try to locate him without success. During the code she began to reach up and try and pull the ET tube out so CPR was stopped and blood pressure was evaluated. Blood pressure of 140 systolic was noted. Patient was given etomidate at that time for sedation because no sedation had been required during the code given the patient was unconscious and unresponsive. As soon as other medications could be pulled she was given fentanyl 50 and a propofol drip started. EKG showed diffuse ST depression in all leads. Patient sent to CT scanner for head CT to rule out intracranial bleed after stroke and because of her back pain and decreased pulses and peripheral mottling I elected to rule out a dissection. Initially it appeared that there may be a dissection but after further conversation with radiologist, it is felt that the contrast looked unusual due to poor cardiac function/ decreased EF. She was noted to have effusions bilaterally and fractured ribs 2 through 6. It is also noted that her SMA appears occluded with uncertain acuity. Patient returned to the room and blood pressures will reported low 90/[address] scanner so propofol was stopped. Patient remained unresponsive and appeared that her pupils were nonreactive. Blood pressure improved to 120/80 with IV fluids. Given that she was a full code reportedly has elected to admit her after and perform cooling protocol. I spoke with Dr Berman who accepted the admission and came down to the bedside with Dr. Zaldivar to evaluate the patient which was approximately 1 hour after medications were pushed and scans were completed. With bedside ultrasound her cardiac activity was monitored and was minimal. Blood pressure dropped to 80s systolic. After consultation with all the medical providers involved we felt that coding her again is futile and not indicated. It was decided not to admit patient and ventilator was disconnected. Fentanyl 100 g was given her comfort. Approximately 30 minutes later I return to the bedside when the nurses notified me that it appeared she had passed. I monitored the patient for 3 minutes with my stethoscope and observed only one agonal gasp, heard no breath sounds otherwise, and no heart sounds. Blood pressure checked multiple times and did not register. Nurse is present at bedside and patient was pronounced at 1448. Still unable to reach family. Approximately 30 minutes later when nursing went to move patient to another room she was noted to be snoring and blood pressure of 80/40. This is very unusual and I have no explanation for this. Multiple nurses were present with me both at the time of pronouncing her dad as well as half hour later when she was found to be snoring with low blood pressure. Given that we have decided to make her a no CODE STATUS due to futility we will admit her for comfort cares Time of Eval: 14:29 Re-Evaluation/Progress Note: Made the decision not to code patient in consultation with Dr. Stuart Berman and Dr. Anthony Zaldivar. Re-Evaluation/Progress Note: Pt rechecked. She is snoring with a pressure 80/40. Plan to admit. Consultation : Referral / Consult Name: Stuart Berman MD Consulted With: Hospitalist [employer] Operator: Accepts admit Counseled Regarding: Diagnosis, Lab results, Need for admission Discharge & Departure Primary Impression: Cardiac arrest Additional Impressions: Leukocytosis Leukocytosis type: unspecified Qualified Code: D72.829 - Elevated white blood cell count, unspecified Respiratory arrest Cardiogenic shock Septic shock Ribs, multiple fractures Encounter type: initial encounter Fracture type: closed Laterality: right Qualified Code: S22.41XA - Multiple fractures of ribs, right side, initial encounter for closed fracture Pleural effusion Disposition: ADMITTED TO HOSPITAL Discharge Condition All VS Reviewed: Yes Condition: Stable Referrals: PAULINA FLOYD MD (PCP) Crit Care Except Billable Proc Time Spent: 75-104 minutes Services Performed: Patient management by ks Lidiaibe Attestation Portion of this note were transcribed by Dr. Soni Martinez, personally performed the history, physical exam, and medical decision-making: I reviewed and confirmed the accuracy for the information in the transcribed note. Signed by: abrahan Vargas, 06/01/16 1500 copies to: PAULINA FLOYD MD, Gary R DO Jun 01, 2016 12:36 Shaylee Edwards Jun 01, 2016 12:45 Shaylee Edwards Jun 01, 2016 12:45 Time of Eval: 14:29 Re-Evaluation/Progress Note: Made the decision not to code patient. Consultation with Dr. Stuart Berman, Dr. Rosalba Grajeda, and Dr. Schmitz. Re-Evaluation/Progress Note: Pt rechecked. She is snoring with a pressure 80/40. Plan to admit. Consultation : Referral / Consult Name: Stuart Berman MD Consulted With: Hospitalist [employer] Operator: Accepts admit Counseled Regarding: Diagnosis, Lab results, Need for admission Discharge & Departure Primary Impression: Cardiac arrest Additional Impression: Leukocytosis Leukocytosis type: unspecified Qualified Code: D72.829 - Elevated white blood cell count, unspecified Disposition: ADMITTED TO HOSPITAL Discharge Condition All VS Reviewed: Yes Condition: Stable Referrals: PAULINA FLOYD MD (PCP) Crit Care Except Billable Proc Time Spent: 75-104 minutes Services Performed: Patient management by ks Lidiaibe Attestation Portion of this note were transcribed by Dr. Soni Martinez, personally performed the history, physical exam, and medical decision-making: I reviewed and confirmed the accuracy for the information in the transcribed note. Signed by: abrahan Vargas, 06/01/16 1500 copies to: FLOYDPAULINA GARCIA MD, Gary R DO Jun 01, 2016 12:36 Shaylee Edwards Jun 01, 2016 12:45
[2016-06-01] MEDS ORDERED: Propofol 10 mg/mL 20 mL Inj ONE (12:57)
[2016-06-01] MEDS ORDERED: fentaNYL-PF 50 mCg/mL 2 mL Inj ONE (12:58)
[2016-06-01 13:00] VITALS: O2SAT 100
[2016-06-01] MEDS ORDERED: Propofol 10,000 mCg/mL 100 mL Inj ONE (13:02)
[2016-06-01] MEDS ORDERED: fentaNYL-PF 50 mCg/mL 2 mL Inj IVPUSH ONE ×2 (13:05→14:35)
[2016-06-01] MEDS ORDERED: Propofol Inj 1,000,000 MCG in IV Premix 1 EACH IV SCH (13:05)
[2016-06-01 13:41] LABS: INR 1.82 ratio
--- NOTE | 2016-06-01 13:41 | DRSVH ---
PROCEDURE: CT BRAIN WITHOUT CONTRAST ([id number]) INDICATIONS: Stroke TECHNIQUE: Noncontrast 4.5 mm thick angled axial sections acquired from the foramen magnum to the vertex, with c oronal reformats. COMPARISON: [facility], CT, BRAIN (TPA), 05/22/2016, 7:15. FINDINGS: Image quality: Excellent. CSF spaces: Basal cisterns are patent. No extra-axial fluid collections. The ventricles are symmet kelsie in size and shape. Brain: No intracranial bleeds or masses. There is cerebral volume loss for age, with resultant vent ricular and sulcal prominence. There are periventricular and deep white matter chronic small vessel ischemic changes. There is intracranial internal carotid artery atherosclerosis. Skull and face: Calvarium and visualized facial bones appear intact, without suspicious lesions. Sinuses: Visualized sinuses and mastoids are clear. IMPRESSION: No acute intracranial abnormality. Dictated by: Katelyn Quezada M.D. on 06/01/2016 at 13:39 Approved by: Katelyn Quezada M.D. on 06/01/2016 at 13:40
[2016-06-01 13:50] VITALS: BP 120/77; RESP 14; O2SAT 99
[2016-06-01 13:50] LABS: Mean Corpuscular Hemoglobin 30.4 pg (27.0-35.0); Mean Corpuscular Volume 94.8 fL (81-100)
[2016-06-01 13:51] LABS: BASOPHILS % (AUTO) 0 % (0-3); EOSINOPHILS % (AUTO) 0 % (0-5); MONOCYTES % (AUTO) 11 % (4-12); NEUTROPHILS % (AUTO) 44 % (40-74); Platelet Count 160 bil/L (150-400)
[2016-06-01 13:54] LABS: TROPONIN T 0.455 ug/L (0.0-0.011)
--- NOTE | 2016-06-01 14:17 | DRSVH ---
PROCEDURE: X-RAY CHEST ONE VIEW, PORTABLE ([id number]) INDICATIONS: ams TECHNIQUE: One view of the chest was acquired. COMPARISON: [facility], CR, XR CHEST 1V PORTABLE, 04/24/2016, 4:03 AM. [facility], CR, CHEST 1VW (PORTABLE), 08/30/2011, 20:59. FINDINGS: Surgical changes and devices: Endotracheal tube with the tip projecting 4 cm above the kasandra.. Lungs and pleura: No pleural effusions or pneumothorax. Mild patchy opacities in the lung bases bila terally. Mediastinum: Mediastinal contours appear normal. Heart size is normal. Bones and chest wall: No suspicious bony lesions. Overlying soft tissues appear unremarkable. Later al curvature of the spine IMPRESSION: Endotracheal tube with the tip seen approximately 4 cm above the kasandra. Patchy mild bibasilar opacities presumably aspiration/atelectasis. Dictated by: Álvaro Torres M.D. on 06/01/2016 at 14:12 Approved by: Álvaro Torres M.D. on 06/01/2016 at 14:15
[2016-06-01] MEDS ORDERED: PROM25TA14 PO (14:44)
[2016-06-01] MEDS ORDERED: NYST1000 PO (14:44)
[2016-06-01] MEDS ORDERED: ACET325T51 PO (14:44)
--- NOTE | 2016-06-01 14:49 | NUR ---
spiritual care: code response quality reviewer updated about pt's treatment and expected . available to support family as needed. Multiple attempts to contact son made per ERSW.
--- NOTE | 2016-06-01 14:54 | DRSVH ---
PROCEDURE: CT ANG CHEST/ABD W/WO CONTRAST ([id number]) INDICATIONS: severe back pain, cardiac arrest TECHNIQUE: Precontrast 5 mm thick sections acquired from the lung apices to the iliac crests. After the adminis tration of intravenous contrast, 3 mm thick sections again acquired from the lung apices to the iliac crests. 3-dimensional maximum intensity projection (MIP) oblique sagittal and coronal reformats wer e then acquired, and/or 3-dimensional volume rendering reformats. For radiation dose reduction, the following was used: automated exposure control. COMPARISON: None. FINDINGS: Image quality: Excellent. AORTA: Swirling intraluminal hypodensity within the aortic arch is probably flow related artifact, favored o phil dissection since no true or discrete intimal flap is visualized. This is likely due to extremely low cardiac output as IV contrast can be seen refluxing into the IVC, hepatic veins and posterior seg ments of the liver. No periaortic hemorrhage. No aortic aneurysm identified. CHEST: Lungs and pleura: Bilateral pleural effusions, moderate on the right and small on the left. There is dependent consolidation within the lungs bilaterally, suspicious for aspiration. No pneumothorax. Dif fuse scarring and interstitial disease. Calcified granuloma seen in the lingula. Mildly thickened int ralobular septal lines most prominently within the left lung base suggesting pulmonary venous hyperte nsion. Mediastinum: Heart size is enlarged. There is a narrowed appearance of the main pulmonary artery, of unclear clinical significance, and possibly due to under filling/decreased cardiac output. No defini te intraluminal filling defects to suggest pulmonary embolism. No pericardial effusion. No mediastin al or hilar adenopathy by size criteria. Esophagus is normal in caliber. No hiatal hernias. Bones and chest wall: No axillary adenopathy by size criteria. . No suspicious bony lesions. No ve rtebral body compression fractures. ABDOMEN: Vasculature: Celiac and inferior mesenteric arteries appear patent. The superior mesenteric artery i s not well visualized Renal arteries are also not well contrast opacified. Solid organs: Liver and spleen are normal in size. Gallbladder contains a calcified gallstone measu ring 1 cm and is otherwise contracted. Biliary system is non dilated. Pancreas enhances normally. No adrenal nodules. Both kidneys are normal in size and enhancement, without hydronephrosis. Possib le bilateral low density renal cysts although technically indeterminate Peritoneum and bowel: No free fluid or air. Bowel loops are normal in caliber and wall thickness. Nodes and vessels: No retroperitoneal or mesenteric adenopathy by size criteria. Inferior vena cava is normal in morphology. Bones: No suspicious bony lesions. Right second-sixth anterior rib fractures. No vertebral body comp ression fractures. Miscellaneous: No ventral hernias. IMPRESSION: Severely decreased cardiac output, with prominent reflux of IV contrast into the IVC, hepatic veins a nd right posterior segment of the liver. This likely accounts for the intraluminal irregular flow art ifact the appearance of the aortic arch. No definite aortic dissection identified. Bilateral irrm-mt-lwyphkrn pleural effusions, right greater than left. Acute right second-sixth rib fractures. Bibasilar dependent consolidation presumably aspiration and/or pneumonia. Please correlate clinically . Mild cardiomegaly. Cholelithiasis. Bilateral low-density renal lesions presumably small cysts although technically indeterminate. Superior mesentery artery not well-visualized and may be occluded although this finding is technicall y age indeterminate. Findings are personally discussed by telephone with Dr. Shafer in the emergency Department 06/01/16 1 400 hours Dictated by: Álvaro Torres M.D. on 06/01/2016 at 13:43 Approved by: Álvaro Torres M.D. on 06/01/2016 at 14:52
[2016-06-01 15:15] VITALS: BP 71/30; PULSE 105; RESP 20; O2SAT 70
[2016-06-01] MEDS ORDERED: fentaNYL-PF 50 mCg/mL 2 mL Inj IVPUSH PRN (16:30)
[2016-06-01] MEDS ORDERED: Atropine 1% 5 mL Ophthalmic Solution PO PRN (17:00)
[2016-06-01] MEDS ORDERED: Artificial Tears 15 mL Ophthalmic Solution AFFECT_EYE PRN (17:00)
[2016-06-01] MEDS ORDERED: Ondansetron 2 mg/mL 2 mL Inj IVPUSH PRN ×2 (17:00→21:55)
--- NOTE | 2016-06-01 17:35 | NUR ---
[facility] [place], REPORT GIVEN BY EMBER DE LA CRUZ, PATIENT IS ON COMFORT CARE. IP LITIGATION ASSOCIATE CONTACTED IF WE CAN DISCHARGE PATIENT TO [facility]. INESSA MORAN RN OF [facility] CONTACTED, [facility] AGREED TO TAKE PATIENT BACK TO THEIR FACILITY, WITH THE FOLLOWING ORDERS TO D/C ALL MEDS AND HAVE COMFORT MEDS AVAILABLE SPECIFICALLY MORPHINE SULFATE 20MG/ML AND ATIVAN [address] PATEL CONTACTED WILL INFORM SENIOR RESIDENT TO DO THE DISCHARGE. WILL CONTINUE TO MONITOR AND KEEP PATIENT COMFORTABLE AT THIS TIME.
[2016-06-01 18:21] VITALS: PULSE 72; RESP 20
--- NOTE | 2016-06-01 18:40 | PCM.HPMED ---
Subjective Date of Service Jun 01, 2016 Primary Provider: Admitting Physician: Stuart Berman MD Primary Care Physician: Enio Downs MD Attending Physician: Stuart Berman MD Chief Complaint: Severe back pain History of Present Illness: At the time of this H&P patient is comfort care and cannot provide any history. Per the ED note: The patient is an 85-year-old female with a past medical history significant for paroxysmal atrial fibrillation, on warfarin, colon cancer status post colon resection x2 and chemotherapy and uterine cancer status post total abdominal hysterectomy and recent admission for acute CVA (05/18/16 - 05/21/16) who presents to the ED via EMS from [facility] due to complaints of severe back pain. Caretakers report the pt has been nauseas, vomiting, and SOB for the past day. She was admitted to [facility] for a stroke one week ago (05/25/16) and has resultant left sided weakness. Per medics, she was initially verbally responsive en route and reported back pain and malaise. However, upon arrival at the ED she is unresponsive. SVO2 en route is in the 80s and pressure on arrival is 60. She is able to squeeze her right hand and wiggle her right toes. She is on Coumadin. Pt codes soon after arrival. See timeline below: 1239 patient codes and CPR is started 1243 PEA 1243 epi, intubated with 7.0 and 21 1246 epi 1247 epi- plan for CPR for 2 minutes then check rhythm, SATs at 97 1249 rhythm on monitor, very faint pulse 1249 PEA, resume compressions, unable to contact family, voicemail left on family's machine 1253 heart rate 107, BP 136/125, Propofol and Fentanyl drip, take to CT scan 1256 20 Etomidate Review of Systems: ROS could not be completed as patient is non-verbal and comfortable at time of this H&P Allergies Coded Allergies: ciprofloxacin (Verified Allergy, Intermediate, rash, 05/18/16) Home Medications Per admit 05/22/16: Atorvastatin 40 mg daily Metoprolol tartrate 37.5 mg daily Warfarin 3 mg daily Levothyroxine 88 Mcg daily Duloxetine 40 mg daily Alendronate 35 mg weekly Ipratropium bromide 13 ml spray PMH Per H&P dated 05/22/16: 1. CVA admitted 05/18/16-05/21/16 2. Paroxysmal atrial fibrillation on warfarin. 3. Hypertension 4. Peripheral neuropathy. 5. Hypothyroidism. 6. Osteoporosis. 7. Colon cancer status post colon resection 2 and chemotherapy. 8. Uterine cancer status post total abdominal hysterectomy. 9. Reports COPD Surgical History 1. Cholecystectomy. 2. Total abdominal hysterectomy (). 3. Colon resection 2 (1998 and 2003). Family History Her mother and father of old age. She had 2 brothers and 2 sisters. Her brother had CHF. She has one sister who is alive but is unaware of her medical history. Social History Hx Alcohol Use: Yes (wine occ) Hx Substance Use: No Hx Tobacco Use: Yes Smoking Status: Former Smoker Living Arrangement: Long Term Facility Exam Vital Signs Vital Sign - Last Date Time Temp Pulse Resp B/P Pulse Ox O2 Delivery O2 Flow Rate FiO2 06/01/16 13:50 35.2 14 120/77 99 Room Air 06/01/16 12:30 62 10 Exam Patient resting comfortably in MOC; no acute distress; not awake or alert PERRLA, Sclera anicteric Cannot evaluate mouth as patient has clamped closed CV: heart tones difficult to appreciate but appear to be in regular rate and rhythm Respiratory: coarse breath sounds noted throughout the lung chavira with shallow breathing noted Abdomen: no bowel tones, soft, nondistended Extremities: cold, mottled, no edema Pulses: Radial present and equivalent bilaterally, dorsalis pedis could not be appreciated Cotter catheter in place Lab and Diagnostics Result Diagram: 06/01/16 1234 06/01/16 1234 X-Rays, CTs and MRIs PROCEDURE: CT BRAIN WITHOUT CONTRAST IMPRESSION: No acute intracranial abnormality. Dictated by: Katelyn Quezada M.D. on 06/01/2016 at 13:39 PROCEDURE: CT ANG CHEST/ABD W/WO CONTRAST IMPRESSION: Severely decreased cardiac output, with prominent reflux of IV contrast into the IVC, hepatic veins and right posterior segment of the liver. This likely accounts for the intraluminal irregular flow artifact the appearance of the aortic arch. No definite aortic dissection identified Bilateral [id number]-pm-ovquqijj pleural effusions, right greater than left. Acute right second-sixth rib fractures Bibasilar dependent consolidation presumably aspiration and/or pneumonia. Please correlate clinically. Mild cardiomegaly. Cholelithiasis. Bilateral low-density renal lesions presumably small cysts although technically indeterminate Superior mesentery artery not well-visualized and may be occluded although this finding is technically age indeterminate. Findings are personally discussed by telephone with Dr. Shafer in the emergency Department 06/01/16 1400 hours Dictated by: Álvaro Torres M.D. on 06/01/2016 at 13:43 Assessment & Plan Patient is an 85-year-old female with a history of paroxysmal atrial fibrillation, on warfarin, colon cancer status post colon resection x2 and chemotherapy and uterine cancer status post total abdominal hysterectomy and recent admission for acute CVA (05/18/16 - 05/21/16). She presented to the ED via EMS from [facility] due to complaints of severe back pain. She acutely decompensated in the ED going into PEA cardiac arrest and respiratory failure requiring CPR and intubation. After attempts at resuscitation were deemed insufficient that patient was made comfort care. 1. PEA cardiac arrest, acute, present on admission. - CPR performed in the ED. - Patient currently comfort care with an expectation that she will pass away within the next 24-48 hours. 2. Respiratory failure secondary cardiac arrest, acute, present on admission. - Cannot determine hypoxic/hypoxemic as no blood gas information found in EMR. - Patient intubated in the ED. - Extubated when made comfort care. 3. Comfort care. - Morphine, lorazepam, atropine drops available PRN for comfort. - O2 supplementation as needed for comfort. - Cotter catheter placed. - Oral suction as needed. - Nursing orders placed to minimize interruption and maximize comfort. Chronic conditions that are present but will no longer be undergoing treatment: CVA admitted 05/18/16-05/21/16 Paroxysmal atrial fibrillation on warfarin. Hypertension Peripheral neuropathy. Hypothyroidism. Osteoporosis. Patient admitted under inpatient status with expected length of stay greater than 2 midnights for severity of present symptoms, complexities of treatment plan and risk for adverse events. Resuscitation Status: DNR/DNI:Do Not Resuscitate/Intubate Attending Statement The patient was seen and examined together with Dr. Rivera on 06/01/2016 and I agree with the history, exam and plan as outlined in the note above. . copies to: ENIO DOWNS MD, Jennifer E DO Jun 01, 2016 16:59 Stuart Berman MD Jun 02, 2016 15:13
--- NOTE | 2016-06-01 18:44 | NUR ---
spiritual care: follow up caring visit.
--- NOTE | 2016-06-01 18:45 | PCM.DIMED ---
Discharge Instructions Date of Service Jun 01, 2016 Dates of Hospitalization Jun 01, 2016 at 15:50 Discharge Diagnosis Discharge Diagnosis 1. PEA cardiac arrest, acute, present on admission. 2. Respiratory failure secondary cardiac arrest, acute, present on admission. 3. Comfort care. Chronic conditions that are present but will no longer be undergoing treatment: CVA admitted 05/18/16-05/21/16 Paroxysmal atrial fibrillation on warfarin. Hypertension Peripheral neuropathy. Hypothyroidism. Osteoporosis. Medication Instructions Hospice medications have been ordered: Morphine 20 mg/mL 5-20 mg Q1H PRN pain or dyspnea Lorazepam 2 mg/dL 0.5-2.0 mg Q2H PRN anxiety or agitation Atropine 1% drops 2 gtt under tongue Q4H PRN secretions Scopolamine patches 1-2 patches Q72H PRN secretions Haloperidol 2 mg/mL 0.5-2 mg Q2-4H PRN agitation Diet Other (NPO as patient not awake) Activity Other (Bedrest as patient is comfort care) Patient Instructions Patient comfort care. Expected to pass in the next 24-48 hours. Namita Rivera DO Jun 01, 2016 18:45
--- NOTE | 2016-06-01 18:50 | PCM.DC.MED ---
Discharge Summary Date of Service Jun 01, 2016 Dates of Hospitalization Date of Hospital Admission Jun 01, 2016 at 15:50 Date of Discharge: Jun 01, 2016 Providers: Admitting Physician: Stuart Berman MD Primary Care Physician: Enio Downs MD Attending Physician: Stuart Berman MD Diagnosis at Time of Discharge Diagnosis at Time of Discharge 1. PEA cardiac arrest, acute, present on admission. 2. Respiratory failure secondary cardiac arrest, acute, present on admission. 3. Comfort care. Chronic conditions that are present but will no longer be undergoing treatment: CVA admitted 05/18/16-05/21/16 Paroxysmal atrial fibrillation on warfarin. Hypertension Peripheral neuropathy. Hypothyroidism. Osteoporosis. Consultations None Procedures XRay, CTs & MRIs PROCEDURE: CT BRAIN WITHOUT CONTRAST IMPRESSION: No acute intracranial abnormality. Dictated by: Katelyn Quezada M.D. on 06/01/2016 at 13:39 PROCEDURE: CT ANG CHEST/ABD W/WO CONTRAST IMPRESSION: Severely decreased cardiac output, with prominent reflux of IV contrast into the IVC, hepatic veins and right posterior segment of the liver. This likely accounts for the intraluminal irregular flow artifact the appearance of the aortic arch. No definite aortic dissection identified Bilateral lotv-ij-dalzsozd pleural effusions, right greater than left. Acute right second-sixth rib fractures Bibasilar dependent consolidation presumably aspiration and/or pneumonia. Please correlate clinically. Mild cardiomegaly. Cholelithiasis. Bilateral low-density renal lesions presumably small cysts although technically indeterminate Superior mesentery artery not well-visualized and may be occluded although this finding is technically age indeterminate. Findings are personally discussed by telephone with Dr. Shafer in the emergency Department 06/01/16 1400 hours Dictated by: Álvaro Torres M.D. on 06/01/2016 at 13:43 Brief History Per H&P dated 06/01/16: At the time of this H&P patient is comfort care and cannot provide any history. Per the ED note: The patient is an 85-year-old female with a past medical history significant for paroxysmal atrial fibrillation, on warfarin, colon cancer status post colon resection x2 and chemotherapy and uterine cancer status post total abdominal hysterectomy and recent admission for acute CVA (05/18/16 - 05/21/16) who presents to the ED via EMS from [facility] due to complaints of severe back pain. Caretakers report the pt has been nauseas, vomiting, and SOB for the past day. She was admitted to [facility] for a stroke one week ago (05/25/16) and has resultant left sided weakness. Per medics, she was initially verbally responsive en route and reported back pain and malaise. However, upon arrival at the ED she is unresponsive. SVO2 en route is in the 80s and pressure on arrival is 60. She is able to squeeze her right hand and wiggle her right toes. She is on Coumadin. Pt codes soon after arrival. See timeline below: 1239 patient codes and CPR is started 1243 PEA 1243 epi, intubated with 7.0 and 21 1246 epi 1247 epi- plan for CPR for 2 minutes then check rhythm, SATs at 97 1249 rhythm on monitor, very faint pulse 1249 PEA, resume compressions, unable to contact family, voicemail left on family's machine 1253 heart rate 107, BP 136/125, Propofol and Fentanyl drip, take to CT scan 1256 20 Etomidate Hospital Course Patient is an 85-year-old female with a history of paroxysmal atrial fibrillation, on warfarin, colon cancer status post colon resection x2 and chemotherapy and uterine cancer status post total abdominal hysterectomy and recent admission for acute CVA (05/18/16 - 05/21/16). She presented to the ED via EMS from [facility] due to complaints of severe back pain. She acutely decompensated in the ED going into PEA cardiac arrest and respiratory failure requiring CPR and intubation. After attempts at resuscitation were deemed insufficient that patient was made comfort care. 1. PEA cardiac arrest, acute, present on admission. - CPR performed in the ED detailed in the brief history above. - Patient currently comfort care with an expectation that she will pass away within the next 24-48 hours. Transferring back to [facility] for Hospice/ Comfort care. 2. Respiratory failure secondary cardiac arrest, acute, present on admission. - Cannot determine hypoxic/hypoxemic as no blood gas information found in EMR. - Patient intubated in the ED. - Extubated when made comfort care. 3. Comfort care. - Morphine, lorazepam, atropine drops available PRN for comfort. - O2 supplementation as needed for comfort. - Cotter catheter placed. - Oral suction as needed. - Nursing orders placed to minimize interruption and maximize comfort. Chronic conditions that are present but will no longer be undergoing treatment: CVA admitted 05/18/16-05/21/16 Paroxysmal atrial fibrillation on warfarin. Hypertension Peripheral neuropathy. Hypothyroidism. Osteoporosis. Exam Vital Signs (Last) Date Time Temp Pulse Resp B/P Pulse Ox O2 Delivery O2 Flow Rate FiO2 06/01/16 18:21 72 20 Room Air 06/01/16 15:15 71/30 70 06/01/16 13:50 35.2 06/01/16 12:30 10 Test 06/01/16 12:34 06/01/16 13:10 White Blood Count 19.8th/mm3 (3.8-10.1) Red Blood Count 5.16mil/mm3 (3.90-5.20) Hemoglobin 15.7g/dL (12.0-15.6) Hematocrit 48.9% (35.0-46.0) Mean Corpuscular Volume 94.8fL (81-100) Mean Corpuscular Hemoglobin 30.4pg (27.0-35.0) Mean Corpuscular Hemoglobin Concent 32.1% (32.0-37.0) Red Cell Distribution Width 15.0% (12.3-15.4) Platelet Count 160bil/L (150-400) Neutrophils (%) (Auto) 44% (40-74) Lymphocytes (%) (Auto) 41% (14-46) Monocytes (%) (Auto) 11% (4-12) Eosinophils (%) (Auto) 0% (0-5) Basophils (%) (Auto) 0% (0-3) Band Neutrophils % 2% (1-5) Metamyelocytes % 0% (0-0) Myelocytes % 2% (0-0) Sodium Level 137mEq/L (134-144) Potassium Level 5.0mEq/L (3.5-5.2) Chloride Level 93mEq/L (97-108) Carbon Dioxide Level 14mmol/L (18-29) Blood Urea Nitrogen 32mg/dL (8-27) Creatinine 1.53mg/dL (0.57-1.00) Estimat Glomerular Filtration Rate 46mL/min (>59) Glucose Level 140mg/dL (60-99) Calcium Level 8.9mg/dL (8.5-10.1) Total Bilirubin 0.4mg/dL (0.0-1.2) Aspartate Amino Transf (AST/SGOT) 152U/L (0-50) Alanine Aminotransferase (ALT/SGPT) 361U/L (0-32) Alkaline Phosphatase 71U/L (25-165) Troponin T 0.455ug/L (0.0-0.011) Total Protein 6.8g/dL (6.4-8.4) Albumin 3.2g/dL (3.4-5.0) Prothrombin Time 19.7sec (8.1-12.5) Prothromb Time International Ratio 1.82ratio Activated Partial Thromboplast Time 53.8sec (22.8-33.0) Discharge Medications Discharge Medications Scopolamine (Transderm-Scop) 1 Each Patch.td72 1 EACH TD Q72D Prescribed by: DELVIS KUMAR DO As needed Atropine 1% Ophthalmic Drops (Atropine 1% Ophthalmic Drops) 1 % Drops 2 DROP PO Q4H PRN PRN Secretion Control Prescribed by: DELVIS KUMAR DO Haloperidol Lactate (Haloperidol Lactate) 2 Mg/1 Ml Oral.conc 0.5-2 MG PO Q3H PRN PRN For Agitation Prescribed by: DELVIS KUMAR DO Lorazepam (Lorazepam Oral Concentrate) 2 Mg/1 Ml Oral.conc 0.25-2 MG PO Q2H PRN PRN For Anxiety Prescribed by: DELVIS KUMAR DO Morphine Sulfate Oral Soln (Morphine Sulfate Oral Soln) 20 Mg/5 Ml Solution 5- 20 MG PO Q1H PRN PRN For Pain Prescribed by: DELVIS KUMAR DO Additional med instructions Hospice medications have been ordered: Morphine 20 mg/mL 5-20 mg Q1H PRN pain or dyspnea Lorazepam 2 mg/dL 0.5-2.0 mg Q2H PRN anxiety or agitation Atropine 1% drops 2 gtt under tongue Q4H PRN secretions Scopolamine patches 1-2 patches Q72H PRN secretions Haloperidol 2 mg/mL 0.5-2 mg Q2-4H PRN agitation Followup Plan Discharge Diet: Other (NPO as patient not awake) Discharge Activity: Other (Bedrest as patient is comfort care) Patient Instructions Patient comfort care. Expected to pass in the next 24-48 hours. copies to: ENIO DOWNS MD, Jennifer E DO Jun 01, 2016 18:46
[2016-06-01] MEDS ORDERED: SCOP1PAT TD (18:55)
[2016-06-01] MEDS ORDERED: HALO2ORA PO (18:55)
[2016-06-01] MEDS ORDERED: ATRO2DRO4 PO (18:55)
[2016-06-01] MEDS ORDERED: LORA2ORA4 PO (18:55)
[2016-06-01] MEDS ORDERED: MORP20SO PO (18:55)
[2016-06-01] MEDS ORDERED: 0.9% Sodium Chloride 1,000 ML IV SCH (21:52)
[2016-06-01] MEDS ORDERED: Senna-Docusate 8.6-50 mg Tablet PO PRN (21:55)
[2016-06-01] MEDS ORDERED: Alum-Mag Hydrox-Simeth 30 mL Suspension PO PRN (21:55)
[2016-06-01] MEDS ORDERED: Polyethylene Glycol (PEG) 17 Gm Powder PO PRN (21:55)
--- NOTE | 2016-06-01 22:26 | ABG ---
DateTimeAnalyzed 22:19:00 -_ pH ____7.063 - 7.350 7.450 pCO2 ___41.4__ -mmHg 35.0 45.0 pO2 ___88.2__ -mmHg 70.0 100 HCO3- ___11.3__ -mmol/L 22.0 26.0 ABE __-19.2__ -mmol/L -2.0 2.0 tHb ___15.2__ -g/dL 12.0 18.0 O2Hb ___93.1__ -% 95.0 COHb ____0.1__ -% 1.5 MetHb ____1.1__ -% 0.4 1.5 sO2 ___94.2__ -% FIO2 ___21.0__ -% Drawn By MM - Date/Time Notified____ 22:25:00 -_ Spontaneous_RR ___14.0__ -b/min Liter_Flow ____5.0__ -L/min Oxygen Device 1 __CANNULA - Notified By MM - Notified Whom DR KUBISTY - B 763 -mmHg tO2 ___19.9__ -Vol% Bharat test N/A -
--- NOTE | 2016-06-01 23:02 | NUR ---
Transfer to [facility] Assumed pt care at 1899,on hand off, pt on comfort care and initial plan was to DC pt to [facility], DC papers ready, EMS arrived, pt was placed on stretcher and ready for transport, at 1907 received phone call from Siria, admit coordinator at [facility], requested to hold off transfer r/t not being able to get a hold and speak to pt's son for consent, pt placed back to room. At, 1934 received phone call from pt's son, Александр, inquired about pt's status, RN requested for him to come in personally for further information, at 1954 noted pt lethargic, able to respond thru opening her eyes with repeated verbal stimulation, pt non verbal, noted F16 small, 2 IV access, LFA and RAC,SL, placed on 02 at 2l via NC for comfort, noted generalized skin mottling, purplish blue peripheries, coccyx checked, no skin breakdown, repositioned pt, pt no signs of pain/discomfort. At 2099, pt son,family, at bedside, given information regarding pt status, and plan to DC to [facility], pt's son, able to give verbal consent and agreed to said plan, also paged Dr. Russo to speak with family,spoke with Dr. Rafaela power, stated unable to come in as of this time. At 2104, spoke to Siria from [facility], they are willing to accept pt, given she has POLST form on transfer. 2129, pt's son, stating he is the POA, RN explained need for POLST form, explained every sections of the form,questions we're answered, pt son able to sign. At 2137, per house sup.recommendation to have attending doc, go over the POLST form with family, verbal request made to Dr. Huang night resident working with Dr. Rafaela vyas, who is present at nurse's station, Dr. Huang agreed to speak to family. 2144, informed family that Dr. Huang will be coming in to speak to them. at 2199, pt's son, stated "I am not going to wait for anyone, anymore", RN attempted to persuade family and emphasize importance of speaking to about pt's POLST form, pt's son, still insisted to leave, stating "they can call me, if they need me", 2199, pt's son/family left room. Dr. Huang made aware. Transfer to [facility] At 2209,Newly signed polst form, pt's son indicating, CPR, Limited intervention, Dr. Huang aware, Dr. Russo present at bedside, assessed pt, pt awake, following verbal commands, call placed to CCU charge for transfer, transported pt via hosp.bed, with 02 at 2l/min, hand off/information provided to CCU diplomatic courier.
--- NOTE | 2016-06-01 23:24 | NUR ---
Transfer to CCU Pt emergently transferred to CCU Room #2019. Report given from MOC RN to CCU newspaper peddler in person. Telemetry, SpO2, NBP cuff placed on patient. Spoke with Dr. Russo and VORB received for LR at 150ml/hour. Blood sugar checked and resulted low at 20s. Dr. Russo informed in person and order given for 100mg D50 IVP. Rechecked with little increase. Recheched in 15 minutes with result of 336. x2 Large Bore PIV patent. Pt hypotensive. LR wide open with some effect on raising MAP. MD spoke with Anesthesia and order given to place ART Line and Central Line. Anesthesia at bedside. Code Blue Called as patient had telemetry change and no pulse present. See code blue sheet for documentation. Pulse regained after several rounds of CPR/Epinephrine. Son called multiple times without success. Voicemail left. POLST states DNI. Respiratory arrest as patient unable to protect airway and inappropriate for BIPAP r/t vomiting. Declared futile. Epinephrine gtt ordered and prepared but not administered per Dr. Russo's order. Dr. Russo ordered 1mg Morphine IVP to maintain patient's comfort. Medication was pulled by Pharmacist, administered by this RN and then wasted with same Pharmacist. Time of 2340 06/01/16. Called by Dr. Russo and this RN.
[2016-06-01] MEDS ORDERED: Sodium Bicarb (50 mEq) 8.4% 1 mEq/mL 50 mL Syringe IVPUSH ONE (23:39)
[2016-06-01] MEDS ORDERED: EPINEPHrine 0.1 mg/mL 10 mL Syringe IV ONE (23:39)
[2016-06-01] MEDS ORDERED: Sodium Chloride LOK Flush 10 mL Syringe IVFLUSH ONE (23:39)
[2016-06-01] MEDS ORDERED: Succinylcholine Chloride 20 mg/mL 5 mL Inj ONE (23:39)
[2016-06-01] MEDS ORDERED: 0.9% Sodium Chloride 250 ML IV ONE ×2 (23:39)
[2016-06-01 23:40] LABS: Magnesium 2.5 mg/dL (1.6-2.6)
--- NOTE | 2016-06-01 23:41 | NUR ---
Time of 0362
[2016-06-01 23:56] LABS: TROPONIN T 50.74 ug/L (0.0-0.011)
[2016-06-02] MEDS ORDERED: Lactated Ringer's 1,000 ML IV SCH (00:15)
[2016-06-02] MEDS ORDERED: Sodium Chloride LOK Flush 10 mL Syringe IVFLUSH SCH (00:30)
--- NOTE | 2016-06-02 00:38 | PCM.PNMED ---
Subjective Date of Service Jun 02, 2016 Subjective Called to see patient on medical observation unit as son was by signed a pulse form and made his mother CPR to be done but no intubation and no antibiotics. Originally patient was placed there is no family members were available and patient was comfort care only. 2 separate phone calls were attempted to be made to the sun with no answer and messages were left and patient's son did not call back. Exam Vital Signs Vital Sign - Last Date Time Temp Pulse Resp B/P Pulse Ox O2 Delivery O2 Flow Rate FiO2 06/01/16 18:21 72 20 Room Air 06/01/16 15:15 71/30 70 06/01/16 13:50 35.2 06/01/16 12:30 10 Intake and Output 06/01/16 06/01/16 06/02/16 Cumulative From/Thru 15:00 23:00 07:00 06/01/16 12:30 - 06/01/16 14:06 Intake Total 1000 ml 1000 ml Balance 1000 ml 1000 ml Intake IV Total 1000 ml 1000 ml Exam Constitutional: Cachectic female who is responsive to some painful stimuli does open up her eyes. Head: Normocephalic atraumatic Chest: Decreased breath sounds at her bases Cor: Regular rate and rhythm S1-S2 Abdomen soft nontender bowel sounds present Extremities no edema but cyanotic at the distal extremities but pulses are present in her feet Neuro: she does arouse to stimuli and opens up her eyes. Her left arm is flaccid she is able to move her bilateral legs and right arm. Lab and Diagnostics Laboratory Tests 72 Hours Test 06/01/16 12:34 06/01/16 13:10 06/01/16 22:50 White Blood Count 19.8th/mm3 (3.8-10.1) Red Blood Count 5.16mil/mm3 (3.90-5.20) Hemoglobin 15.7g/dL (12.0-15.6) Hematocrit 48.9% (35.0-46.0) Mean Corpuscular Volume 94.8fL (81-100) Mean Corpuscular Hemoglobin 30.4pg (27.0-35.0) Mean Corpuscular Hemoglobin Concent 32.1% (32.0-37.0) Red Cell Distribution Width 15.0% (12.3-15.4) Platelet Count 160bil/L (150-400) Neutrophils (%) (Auto) 44% (40-74) Lymphocytes (%) (Auto) 41% (14-46) Monocytes (%) (Auto) 11% (4-12) Eosinophils (%) (Auto) 0% (0-5) Basophils (%) (Auto) 0% (0-3) Band Neutrophils % 2% (1-5) Metamyelocytes % 0% (0-0) Myelocytes % 2% (0-0) Sodium Level 137mEq/L (134-144) 136mEq/L (134-144) Potassium Level 5.0mEq/L (3.5-5.2) 5.2mEq/L (3.5-5.2) Chloride Level 93mEq/L (97-108) 94mEq/L (97-108) Carbon Dioxide Level 14mmol/L (18-29) 13mmol/L (18-29) Blood Urea Nitrogen 32mg/dL (8-27) 15mg/dL (8-27) Creatinine 1.53mg/dL (0.57-1.00) 1.47mg/dL (0.57-1.00) Estimat Glomerular Filtration Rate 46mL/min (>59) 49mL/min (>59) Glucose Level 140mg/dL (60-99) 308mg/dL (60-99) Calcium Level 8.9mg/dL (8.5-10.1) 8.0mg/dL (8.5-10.1) Total Bilirubin 0.4mg/dL (0.0-1.2) 0.8mg/dL (0.0-1.2) Aspartate Amino Transf (AST/SGOT) 152U/L (0-50) 2382U/L (0-50) Alanine Aminotransferase (ALT/SGPT) 361U/L (0-32) 1318U/L (0-32) Alkaline Phosphatase 71U/L (25-165) 88U/L (25-165) Troponin T 0.455ug/L (0.0-0.011) 50.74ug/L (0.0-0.011) Total Protein 6.8g/dL (6.4-8.4) 4.4g/dL (6.4-8.4) Albumin 3.2g/dL (3.4-5.0) 2.4g/dL (3.4-5.0) Prothrombin Time 19.7sec (8.1-12.5) Prothromb Time International Ratio 1.82ratio Activated Partial Thromboplast Time 53.8sec (22.8-33.0) Magnesium Level 2.5mg/dL (1.6-2.6) Prealbumin 10mg/dL (20-40) Result Diagram: 06/01/16 1234 06/01/16 2250 X-Rays, CTs and MRIs PROCEDURE: CT BRAIN WITHOUT CONTRAST IMPRESSION: No acute intracranial abnormality. Dictated by: Katelyn Quezada M.D. on 06/01/2016 at 13:39 PROCEDURE: CT ANG CHEST/ABD W/WO CONTRAST IMPRESSION: Severely decreased cardiac output, with prominent reflux of IV contrast into the IVC, hepatic veins and right posterior segment of the liver. This likely accounts for the intraluminal irregular flow artifact the appearance of the aortic arch. No definite aortic dissection identified Bilateral [id number] pleural effusions, right greater than left. Acute right second-sixth rib fractures Bibasilar dependent consolidation presumably aspiration and/or pneumonia. Please correlate clinically. Mild cardiomegaly. Cholelithiasis. Bilateral low-density renal lesions presumably small cysts although technically indeterminate Superior mesentery artery not well-visualized and may be occluded although this finding is technically age indeterminate. Findings are personally discussed by telephone with Dr. Shafer in the emergency Department 06/01/16 1400 hours Dictated by: Álvaro Torres M.D. on 06/01/2016 at 13:43 Assessment & Plan Patient is an 85-year-old female with a history of paroxysmal atrial fibrillation, on warfarin, colon cancer status post colon resection x2 and chemotherapy and uterine cancer status post total abdominal hysterectomy and recent admission for acute CVA (05/18/16 - 05/21/16). She presented to the ED via EMS from [facility] due to complaints of severe back pain. She acutely decompensated in the ED going into PEA cardiac arrest and respiratory failure requiring CPR and intubation. After attempts at resuscitation were deemed insufficient that patient was made comfort care. 1. PEA cardiac arrest, acute, present on admission. - CPR performed in the ED detailed in the brief history above. - Patient currently comfort care with an expectation that she will pass away within the next 24-48 hours. Transferring back to [facility] for Hospice/ Comfort care. 2. Respiratory failure secondary cardiac arrest, acute, present on admission. - Cannot determine hypoxic/hypoxemic as no blood gas information found in EMR. - Patient intubated in the ED. - Extubated when made comfort care. 3. Comfort care. - Morphine, lorazepam, atropine drops available PRN for comfort. - O2 supplementation as needed for comfort. - Cotter catheter placed. - Oral suction as needed. - Nursing orders placed to minimize interruption and maximize comfort. Chronic conditions that are present but will no longer be undergoing treatment: CVA admitted 05/18/16-05/21/16 Paroxysmal atrial fibrillation on warfarin. Hypertension Peripheral neuropathy. Hypothyroidism. Osteoporosis. Acute change in status assessment and plan: CODE STATUS was changed by son with POLST form saying proceed with CPR but limited interventions otherwise with no antibiotics. Hence patient was transferred to CCU status. Labs revealed hypoglycemia at 28 and this was repleted by 2 Amps of D50 W. Blood pressure initially was 114/60. IV D5 lactated Ringer's was initiated. ABG was obtained and revealed 7.063 pH PCO2 was 41 and PO2 was 88 and bicarbonate was 11.3 and this was on 5 L nasal cannula. Anesthesia was contacted for placement of central line and arterial line. While anesthesia was prepping the patient patient had cardiac arrest. Initially was asystole and CPR was initiated patient was bagged while this was going on for ventilation and oxygenation. After several rounds of IV epinephrine patient initially came back PEA and CPR was continued and then did have return of spontaneous circulation. However was not able to be supported respiratory-underwood by BiPAP as she was essentially unconscious and was DO NOT intubate and she was not able to ventilate on her own and eventually at 11:40 PM. Her son has not returned her phone calls at the time of this dictation. Resuscitation Status: Limited Interventions Time spent Critical care time spent 60 minutes Giovana Russo MD Jun 02, 2016 00:38
--- NOTE | 2016-06-02 00:40 | PCM.DC.MEX ---
Discharge Summary Date of Service Jun 02, 2016 Dates of Hospitalization Date of Hospital Admission Jun 01, 2016 at 15:50 Date of Expiration: Jun 01, 2016 Time of Expiration: 11:40 Providers: Admitting Physician: Stuart Berman MD Primary Care Physician: Enio Downs MD Attending Physician: Stuart Berman MD Diagnosis at Time of 1. PEA cardiac arrest, acute, present on admission. 2. Respiratory failure secondary cardiac arrest, acute, present on admission. But CODE STATUS per son was DO NOT INTUBATE. Chronic conditions that are present but will no longer be undergoing treatment: CVA admitted 05/18/16-05/21/16 Paroxysmal atrial fibrillation on warfarin. Hypertension Peripheral neuropathy. Hypothyroidism. Osteoporosis. Consultations None Procedures XRay, CTs & MRIs PROCEDURE: CT BRAIN WITHOUT CONTRAST IMPRESSION: No acute intracranial abnormality. Dictated by: Katelyn Quezada M.D. on 06/01/2016 at 13:39 PROCEDURE: CT ANG CHEST/ABD W/WO CONTRAST IMPRESSION: Severely decreased cardiac output, with prominent reflux of IV contrast into the IVC, hepatic veins and right posterior segment of the liver. This likely accounts for the intraluminal irregular flow artifact the appearance of the aortic arch. No definite aortic dissection identified Bilateral udcj-[id number] pleural effusions, right greater than left. Acute right second-sixth rib fractures Bibasilar dependent consolidation presumably aspiration and/or pneumonia. Please correlate clinically. Mild cardiomegaly. Cholelithiasis. Bilateral low-density renal lesions presumably small cysts although technically indeterminate Superior mesentery artery not well-visualized and may be occluded although this finding is technically age indeterminate. Findings are personally discussed by telephone with Dr. Shafer in the emergency Department 06/01/16 1400 hours Dictated by: Álvaro Torres M.D. on 06/01/2016 at 13:43 Brief History Per H&P dated 06/01/16: At the time of this H&P patient is comfort care and cannot provide any history. Per the ED note: The patient is an 85-year-old female with a past medical history significant for paroxysmal atrial fibrillation, on warfarin, colon cancer status post colon resection x2 and chemotherapy and uterine cancer status post total abdominal hysterectomy and recent admission for acute CVA (05/18/16 - 05/21/16) who presents to the ED via EMS from [facility] due to complaints of severe back pain. Caretakers report the pt has been nauseas, vomiting, and SOB for the past day. She was admitted to [facility] for a stroke one week ago (05/25/16) and has resultant left sided weakness. Per medics, she was initially verbally responsive en route and reported back pain and malaise. However, upon arrival at the ED she is unresponsive. SVO2 en route is in the 80s and pressure on arrival is 60. She is able to squeeze her right hand and wiggle her right toes. She is on Coumadin. Pt codes soon after arrival. See timeline below: 1239 patient codes and CPR is started 1243 PEA 1243 epi, intubated with 7.0 and 21 1246 epi 1247 epi- plan for CPR for 2 minutes then check rhythm, SATs at 97 1249 rhythm on monitor, very faint pulse 1249 PEA, resume compressions, unable to contact family, voicemail left on family's machine 1253 heart rate 107, BP 136/125, Propofol and Fentanyl drip, take to CT scan 1256 20 Etomidate Hospital Course Patient is an 85-year-old female with a history of paroxysmal atrial fibrillation, on warfarin, colon cancer status post colon resection x2 and chemotherapy and uterine cancer status post total abdominal hysterectomy and recent admission for acute CVA (05/18/16 - 05/21/16). She presented to the ED via EMS from [facility] due to complaints of severe back pain. She acutely decompensated in the ED going into PEA cardiac arrest and respiratory failure requiring CPR and intubation. After attempts at resuscitation were deemed insufficient that patient was made comfort care. 1. PEA cardiac arrest, acute, present on admission. - CPR performed in the ED detailed in the brief history above. - Patient currently comfort care with an expectation that she will pass away within the next 24-48 hours. Transferring back to [facility] for Hospice/ Comfort care. 2. Respiratory failure secondary cardiac arrest, acute, present on admission. - Cannot determine hypoxic/hypoxemic as no blood gas information found in EMR. - Patient intubated in the ED. - Extubated when made comfort care. 3. Comfort care. - Morphine, lorazepam, atropine drops available PRN for comfort. - O2 supplementation as needed for comfort. - Cotter catheter placed. - Oral suction as needed. - Nursing orders placed to minimize interruption and maximize comfort. Chronic conditions that are present but will no longer be undergoing treatment: CVA admitted 05/18/16-05/21/16 Paroxysmal atrial fibrillation on warfarin. Hypertension Peripheral neuropathy. Hypothyroidism. Osteoporosis. Acute change in status assessment and plan: CODE STATUS was changed by son with pulsed form saying proceed with CPR but limited interventions otherwise with no antibiotics. Hence patient was transferred to CCU status. Labs revealed hypoglycemia at 28 and this was repleted by 2 Amps of D50 W. Blood pressure initially was 114/60. IV D5 lactated Ringer's was initiated. ABG was obtained and revealed 7.063 pH PCO2 was 41 and PO2 was 88 and bicarbonate was 11.3 and this was on 5 L nasal cannula. Anesthesia was contacted for placement of central line and arterial line. While anesthesia was prepping the patient patient had cardiac arrest. Initially was asystole and CPR was initiated patient was bagged while this was going on for ventilation and oxygenation. After several rounds of IV epinephrine patient initially came back PEA and CPR was continued and then did have return of spontaneous circulation. However was not able to be supported respiratory-underwood by BiPAP as she was essentially unconscious and was DO NOT intubate and she was not able to ventilate on her own and eventually at 11:40 PM. Her son has not returned her phone calls at the time of this dictation. Exam Test 06/01/16 12:34 06/01/16 13:10 06/01/16 22:50 White Blood Count 19.8th/mm3 (3.8-10.1) Red Blood Count 5.16mil/mm3 (3.90-5.20) Hemoglobin 15.7g/dL (12.0-15.6) Hematocrit 48.9% (35.0-46.0) Mean Corpuscular Volume 94.8fL (81-100) Mean Corpuscular Hemoglobin 30.4pg (27.0-35.0) Mean Corpuscular Hemoglobin Concent 32.1% (32.0-37.0) Red Cell Distribution Width 15.0% (12.3-15.4) Platelet Count 160bil/L (150-400) Neutrophils (%) (Auto) 44% (40-74) Lymphocytes (%) (Auto) 41% (14-46) Monocytes (%) (Auto) 11% (4-12) Eosinophils (%) (Auto) 0% (0-5) Basophils (%) (Auto) 0% (0-3) Band Neutrophils % 2% (1-5) Metamyelocytes % 0% (0-0) Myelocytes % 2% (0-0) Prothrombin Time 19.7sec (8.1-12.5) Prothromb Time International Ratio 1.82ratio Activated Partial Thromboplast Time 53.8sec (22.8-33.0) Sodium Level 136mEq/L (134-144) Potassium Level 5.2mEq/L (3.5-5.2) Chloride Level 94mEq/L (97-108) Carbon Dioxide Level 13mmol/L (18-29) Blood Urea Nitrogen 15mg/dL (8-27) Creatinine 1.47mg/dL (0.57-1.00) Estimat Glomerular Filtration Rate 49mL/min (>59) Glucose Level 308mg/dL (60-99) Calcium Level 8.0mg/dL (8.5-10.1) Magnesium Level 2.5mg/dL (1.6-2.6) Total Bilirubin 0.8mg/dL (0.0-1.2) Aspartate Amino Transf (AST/SGOT) 2382U/L (0-50) Alanine Aminotransferase (ALT/SGPT) 1318U/L (0-32) Alkaline Phosphatase 88U/L (25-165) Troponin T 50.74ug/L (0.0-0.011) Total Protein 4.4g/dL (6.4-8.4) Albumin 2.4g/dL (3.4-5.0) Prealbumin 10mg/dL (20-40) Time spent 60 minutes Giovana Russo MD Jun 02, 2016 00:40
--- NOTE | 2016-06-02 07:33 | DRSVH ---
PROCEDURE: X-RAY CHEST ONE VIEW, PORTABLE ([id number]) INDICATIONS: cardiac arrest TECHNIQUE: One view of the chest was acquired. COMPARISON: Merged With [facility], CR, XR CHEST 1VW (PORTABLE), 06/01/2016, 13:12. FINDINGS: Surgical changes and devices: Single lead cardiac pacer. Endotracheal tube has been removed. Lungs and pleura: No pleural effusions or pneumothorax. Redemonstration of mild patchy bibasilar opa cities grossly unchanged since yesterday. Mediastinum: Mediastinal contours appear normal. Heart size is normal. Bones and chest wall: No suspicious bony lesions. Overlying soft tissues appear unremarkable. IMPRESSION: Status post removal of endotracheal tube. Elsewhere, no interval change since yesterday. Dictated by: Álvaro Torres M.D. on 06/02/2016 at 7:30 Approved by: Álvaro Torres M.D. on 06/02/2016 at 7:31
== END 2016-06-01 23:40 | disposition expired | DRG 296 ==
LOC: SED 12:17 → EDBD 12:17 → EDUNIT# 12:17 → CCU 14:26 → UNDOADMIN 14:26 → MOC 15:50 → CCU 22:05
PROVIDERS: ADMIT Internal Medicine; ATTEND Internal Medicine
PROC: 5A1935Z Respiratory Ventilation, Less than 24 Consecutive Hours (ICD-10-PCS; principal; 2016-06-01)
PROC: 5A12012 Performance of Cardiac Output, Single, Manual (ICD-10-PCS; 2016-06-01)
PROC: 0BH17EZ Insertion of Endotracheal Airway into Trachea, Via Natural or Artificial Opening (ICD-10-PCS; 2016-06-01)
PROC: 4A033R1 Measurement of Arterial Saturation, Peripheral, Percutaneous Approach (ICD-10-PCS; 2016-06-01)
DX: I46.9 Cardiac arrest, cause unspecified (principal); R40.2312 Coma scale, best motor response, none, at arrival to emergency department; R40.2112 Coma scale, eyes open, never, at arrival to emergency department; R40.2212 Coma scale, best verbal response, none, at arrival to emergency department; J96.00 Acute respiratory failure, unspecified whether with hypoxia or hypercapnia; I69.354 Hemiplegia and hemiparesis following cerebral infarction affecting left non-dominant side; Z92.21 Personal history of antineoplastic chemotherapy; Z79.01 Long term (current) use of anticoagulants; I48.0 Paroxysmal atrial fibrillation; Z85.42 Personal history of malignant neoplasm of other parts of uterus; Z85.038 Personal history of other malignant neoplasm of large intestine; R40.2422 Glasgow coma scale score 9-12, at arrival to emergency department; Z87.891 Personal history of nicotine dependence; D72.829 Elevated white blood cell count, unspecified; Z66 Do not resuscitate